=== PATIENT | male | born 1945 | race Caucasian/White ===

== ENCOUNTER 2017-09-02 13:46 | Inpatient (IN) | payer MEDICARE, OTHER ==
[2017-09-02] MEDS ORDERED: Sodium Chloride 0.9% 1,000 ML IV ONE ×2 (14:24→16:39)
--- NOTE | 2017-09-02 15:11 | EDM.PDOC ---
ED HPI GENERAL MEDICAL PROBLEM - General Chief Complaint: Syncope Stated Complaint: WEAK UNABLE TO EAT FOR WEEKS DIARRHEA Time Seen by Provider: 09/02/17 14:07 Source of Information: Reports: Patient, Family (Francesco kelley) History Limitations: Reports: Physical Impairment (Weak, hoarse voice) - History of Present Illness INITIAL COMMENTS - FREE TEXT/NARRATIVE: The patient states that he has had generalized weakness and anorexia for 1-2 weeks. He has had watery diarrhea for about one week, and one episode of emesis 3 or 4 days ago. He estimates a 15-20 pound weight loss over the past 1-2 weeks. The patient's daughter states that he has fallen at home twice, despite using a walker. He has had a cough, but it is chronic, and unchanged. No recent fever, but the patient has had chills. No recent chest pain, dyspnea, or palpitations. He denies dysuria or urinary frequency. No recent abdominal pain. The patient's daughter believes that the patient has had similar symptoms in the past due to "liver problems". The patient lives alone, but has a nurse visit him daily, Sunday through Sunday. The patient's PCP is Dr. Nayak at the [facility]. He last saw her about 2 months ago. - Related Data Allergies Allergy/AdvReac Type Severity Reaction Status Date / Time No Known Allergies Allergy Verified 11/11/14 06:50 Home Meds: Home Meds . [Unable to Verify Home Med List] 11/11/14 [History] Past Medical History Cardiovascular History: Reports: Blood Clots/VTE/DVT, Hypertension Musculoskeletal History: Reports: Osteoarthritis Oncologic (Cancer) History: Reports: Prostate - Past Surgical History HEENT Surgical History: Reports: Tonsillectomy GI Surgical History: Reports: Appendectomy Social & Family History - Tobacco Use Smoking Status *Q: Current Every Day Smoker Years of Tobacco use: 54 Packs/Tins Daily: 1 Packs/Tins Daily Comment: Down from 3 ppd - Alcohol Use Alcohol Use History: Yes Alcohol Use Frequency: Socially - Recreational Drug Use Recreational Drug Use: No - Living Situation & Occupation Living situation: Reports: , Alone Occupation: Retired ED ROS GENERAL - Review of Systems Review Of Systems: ROS reveals no pertinent complaints other than HPI. ED EXAM, GENERAL - Physical Exam Exam: See Below Exam Limited By: No Limitations General Appearance: Alert, No Apparent Distress, Thin, Other (Pale) Eye Exam: Bilateral Eye: Normal Inspection Ears: Normal External Exam, Hearing Grossly Normal Nose: Normal Inspection, No Blood Throat/Mouth: Normal Inspection, Normal Lips, No Airway Compromise, Other (Dry oral mucosa) Head: Atraumatic, Normocephalic Neck: Normal Inspection, Full Range of Motion. No: Lymphadenopathy (L), Lymphadenopathy (R) Respiratory/Chest: Lungs Clear, No Accessory Muscle Use, Other (Barrel-chested. Distant breath sounds.). No: Crackles, Rales, Wheezing Cardiovascular: Normal Peripheral Pulses, No Edema, No Gallop, No JVD, No Murmur , No Rub, Tachycardia (regular) Peripheral Pulses: 1+: Radial (L), Radial (R) GI/Abdominal: Normal Bowel Sounds, Soft, Non-Tender, No Organomegaly, No Distention, No Abnormal Bruit, No Mass (Male) Exam: Deferred Rectal (Males) Exam: Deferred Back Exam: Normal Inspection, Full Range of Motion, NT Extremities: Normal Inspection, Normal Range of Motion, No Pedal Edema, Normal Capillary Refill Neurological: Alert, Oriented, Normal Cognition, No Motor/Sensory Deficits Psychiatric: Normal Affect Skin Exam: Warm, Dry, Intact, No Rash EKG INTERPRETATION EKG Date: 09/02/17 Time: 14:42 Rhythm: NSR Rate (Beats/Min): 93 [place]: Normal P-Wave: Present (Frequent PVCs) QRS: Wide (Nonspecific intraventricular conduction delay) ST-T: Normal QT: Normal Comparison: NA - No Prior EKG Course - Vital Signs Last Recorded V/S: Last Vital Signs Temp 36.4 C 09/02/17 17:49 Pulse 76 09/02/17 17:49 Resp 18 09/02/17 17:49 BP 98/85 09/02/17 17:49 Pulse Ox 99 09/02/17 17:49 - Orders/Labs/Meds Orders: Active Orders 24 hr Category Date Time Status EKG Documentation Completion [RC] STAT Care 09/02/17 14:22 Active Insert Ramirez Catheter [Insert Urinary Catheter] [OM.PC] Care 09/02/17 17:00 Ordered Q24H Urinary Catheter Assessment [RC] ASDIRECTED Care 09/02/17 17:00 Active Chest 1V Frontal [CR] Stat Exams 09/02/17 14:22 Taken CULTURE BLOOD [BC] Stat Lab 09/02/17 14:45 Received CULTURE BLOOD [BC] Stat Lab 09/02/17 14:55 Received CULTURE URINE [RM] Stat Lab 09/02/17 15:20 Received INFLUENZA A+B AG SCREEN [RM] Stat Lab 09/02/17 15:20 Ordered UA W/MICROSCOPIC [URIN] Stat Lab 09/02/17 17:10 Ordered Norepinephrine [Levophed] 4 mg Med 09/02/17 17:15 Active Dextrose 5% in Water 246 ml IV TITRATE Blood Culture x2 Reflex Set [OM.PC] Stat Oth 09/02/17 14:22 Ordered Medication Orders Norepinephrine Bitartrate 4 mg (/ Dextrose/Water) 250 mls @ 37.5 mls/hr IV TITRATE YAZAN; Protocol Last Titration: 09/02/17 18:08 Dose: 2 mcg/min, 7.5 mls/hr Admin: 09/02/17 17:43 Dose: 10 mcg/min, 37.5 mls/hr Labs: Laboratory Tests 09/02/17 09/02/17 09/02/17 Range/Units 14:22 14:25 14:25 WBC 15.01 H (4.23-9.07) K/mm3 RBC 3.64 L (4.63-6.08) M/mm3 Hgb 10.6 L (13.7-17.5) gm/L Hct 32.2 L (40.1-51.0) % MCV 88.5 (79.0-92.2) fl MCH 29.1 (25.7-32.2) pg MCHC 32.9 (32.2-35.5) g/dl RDW Std Deviation 45.2 H (35.1-43.9) fL Plt Count 785 H (163-337) K/mm3 MPV 9.3 L (9.4-12.3) fl Neutrophils % (Manual) 81 H (40-60) % Band Neutrophils % 0 (0-10) % Lymphocytes % (Manual) 11 L (20-40) % Atypical Lymphs % 0 % Monocytes % (Manual) 8 (2-10) % Eosinophils % (Manual) 0 L (0.8-7.0) % Basophils % (Manual) 0 L (0.2-1.2) Platelet Estimate Marked inc Plt Morphology Comment See note Poikilocytosis 2+ moderate [place] Cells 2+ moderate Acanthocytes (Spur) 2+ moderate RBC Morph Comment Not Reportable PT 12.9 H (9.5-12.1) SECONDS INR 1.19 APTT 30 (24-31) SECONDS D-Dimer, Quantitative 2.22 H (0.19-0.50) mg/L Puncture Site Lt radial ABG pH 7.36 (7.35-7.45) ABG pCO2 20.3 L (35.0-45.0) mmHg ABG pO2 74.0 L (80.0-100.0) mmHg ABG HCO3 11.1 L (22.0-26.0) meq/L ABG O2 Saturation 92.2 L (96.0-97.0) % ABG Base Excess -12.7 L (-2-2.0) Johnny Test Positive O2 Delivery Device Room air FiO2 0.00 L (21.00-100.00) % Sodium (136-145) mEq/L Potassium (3.5-5.1) mEq/L Chloride (98-107) mEq/L Carbon Dioxide (21-32) mEq/L Anion Gap (5-15) BUN (7-18) mg/dL Creatinine (0.7-1.3) mg/dL Est Cr Clr Drug Dosing Estimated GFR (MDRD) (>60) mL/min BUN/Creatinine Ratio (14-18) Glucose (80-115) mg/dL Lactic Acid (0.4-2.0) mmol/L Calcium (8.5-10.1) mg/dL Magnesium (1.8-2.4) mg/dl Total Bilirubin (0.2-1.0) mg/dL AST (15-37) U/L ALT (16-63) U/L Alkaline Phosphatase (46-116) U/L Troponin I (0.00-0.056) ng/mL NT-Pro-B Natriuret Pep (0-125) pg/mL Total Protein (6.4-8.2) g/dl Albumin (3.4-5.0) g/dl Globulin gm/dL Albumin/Globulin Ratio (1-2) Urine Color (Yellow) Urine Appearance (Clear) Urine pH (5.0-8.0) Ur Specific Childs (1.005-1.030) Urine Protein (Negative) Urine Glucose (UA) (Negative) Urine Ketones (Negative) Urine Occult Blood (Negative) Urine Nitrite (Negative) Urine Bilirubin (Negative) Urine Urobilinogen (0.2-1.0) Ur Leukocyte Esterase (Negative) Urine RBC (0-5) /hpf Urine WBC (0-5) /hpf Ur Epithelial Cells (0-5) /hpf Urine Bacteria (FEW) /hpf Urine Mucus (FEW) /hpf 09/02/17 09/02/17 09/02/17 Range/Units 14:25 14:25 14:45 WBC (4.23-9.07) K/mm3 RBC (4.63-6.08) M/mm3 Hgb (13.7-17.5) gm/L Hct (40.1-51.0) % MCV (79.0-92.2) fl MCH (25.7-32.2) pg MCHC (32.2-35.5) g/dl RDW Std Deviation (35.1-43.9) fL Plt Count (163-337) K/mm3 MPV (9.4-12.3) fl Neutrophils % (Manual) (40-60) % Band Neutrophils % (0-10) % Lymphocytes % (Manual) (20-40) % Atypical Lymphs % % Monocytes % (Manual) (2-10) % Eosinophils % (Manual) (0.8-7.0) % Basophils % (Manual) (0.2-1.2) Platelet Estimate Plt Morphology Comment Poikilocytosis Ki Cells Acanthocytes (Spur) RBC Morph Comment PT (9.5-12.1) SECONDS INR APTT (24-31) SECONDS D-Dimer, Quantitative (0.19-0.50) mg/L Puncture Site ABG pH (7.35-7.45) ABG pCO2 (35.0-45.0) mmHg ABG pO2 (80.0-100.0) mmHg ABG HCO3 (22.0-26.0) meq/L ABG O2 Saturation (96.0-97.0) % ABG Base Excess (-2-2.0) Johnny Test O2 Delivery Device FiO2 (21.00-100.00) % Sodium 140 (136-145) mEq/L Potassium 4.9 (3.5-5.1) mEq/L Chloride 105 (98-107) mEq/L Carbon Dioxide 14 L (21-32) mEq/L Anion Gap 25.9 H (5-15) BUN 130 H (7-18) mg/dL Creatinine 5.0 H (0.7-1.3) mg/dL Est Cr Clr Drug Dosing TNP Estimated GFR (MDRD) 12 (>60) mL/min BUN/Creatinine Ratio 26.0 H (14-18) Glucose 113 (80-115) mg/dL Lactic Acid 1.2 (0.4-2.0) mmol/L Calcium 8.8 (8.5-10.1) mg/dL Magnesium 1.6 L (1.8-2.4) mg/dl Total Bilirubin 0.9 (0.2-1.0) mg/dL AST 14 L (15-37) U/L ALT 16 (16-63) U/L Alkaline Phosphatase 130 H (46-116) U/L Troponin I < 0.017 (0.00-0.056) ng/mL NT-Pro-B Natriuret Pep 7271 H (0-125) pg/mL Total Protein 6.6 (6.4-8.2) g/dl Albumin 2.2 L (3.4-5.0) g/dl Globulin 4.4 gm/dL Albumin/Globulin Ratio 0.5 L (1-2) Urine Color (Yellow) Urine Appearance (Clear) Urine pH (5.0-8.0) Ur Specific Childs (1.005-1.030) Urine Protein (Negative) Urine Glucose (UA) (Negative) Urine Ketones (Negative) Urine Occult Blood (Negative) Urine Nitrite (Negative) Urine Bilirubin (Negative) Urine Urobilinogen (0.2-1.0) Ur Leukocyte Esterase (Negative) Urine RBC (0-5) /hpf Urine WBC (0-5) /hpf Ur Epithelial Cells (0-5) /hpf Urine Bacteria (FEW) /hpf Urine Mucus (FEW) /hpf 09/02/17 Range/Units 17:10 WBC (4.23-9.07) K/mm3 RBC (4.63-6.08) M/mm3 Hgb (13.7-17.5) gm/L Hct (40.1-51.0) % MCV (79.0-92.2) fl MCH (25.7-32.2) pg MCHC (32.2-35.5) g/dl RDW Std Deviation (35.1-43.9) fL Plt Count (163-337) K/mm3 MPV (9.4-12.3) fl Neutrophils % (Manual) (40-60) % Band Neutrophils % (0-10) % Lymphocytes % (Manual) (20-40) % Atypical Lymphs % % Monocytes % (Manual) (2-10) % Eosinophils % (Manual) (0.8-7.0) % Basophils % (Manual) (0.2-1.2) Platelet Estimate Plt Morphology Comment Poikilocytosis [place] Cells Acanthocytes (Spur) RBC Morph Comment PT (9.5-12.1) SECONDS INR APTT (24-31) SECONDS D-Dimer, Quantitative (0.19-0.50) mg/L Puncture Site ABG pH (7.35-7.45) ABG pCO2 (35.0-45.0) mmHg ABG pO2 (80.0-100.0) mmHg ABG HCO3 (22.0-26.0) meq/L ABG O2 Saturation (96.0-97.0) % ABG Base Excess (-2-2.0) Johnny Test O2 Delivery Device FiO2 (21.00-100.00) % Sodium (136-145) mEq/L Potassium (3.5-5.1) mEq/L Chloride (98-107) mEq/L Carbon Dioxide (21-32) mEq/L Anion Gap (5-15) BUN (7-18) mg/dL Creatinine (0.7-1.3) mg/dL Est Cr Clr Drug Dosing Estimated GFR (MDRD) (>60) mL/min BUN/Creatinine Ratio (14-18) Glucose (80-115) mg/dL Lactic Acid (0.4-2.0) mmol/L Calcium (8.5-10.1) mg/dL Magnesium (1.8-2.4) mg/dl Total Bilirubin (0.2-1.0) mg/dL AST (15-37) U/L ALT (16-63) U/L Alkaline Phosphatase (46-116) U/L Troponin I (0.00-0.056) ng/mL NT-Pro-B Natriuret Pep (0-125) pg/mL Total Protein (6.4-8.2) g/dl Albumin (3.4-5.0) g/dl Globulin gm/dL Albumin/Globulin Ratio (1-2) Urine Color Yellow (Yellow) Urine Appearance Clear (Clear) Urine pH 5.5 (5.0-8.0) Ur Specific Childs 1.025 (1.005-1.030) Urine Protein 1+ H (Negative) Urine Glucose (UA) Negative (Negative) Urine Ketones Negative (Negative) Urine Occult Blood Negative (Negative) Urine Nitrite Negative (Negative) Urine Bilirubin 2+ H (Negative) Urine Urobilinogen 0.2 (0.2-1.0) Ur Leukocyte Esterase Trace H (Negative) Urine RBC 0-5 (0-5) /hpf Urine WBC 5-10 H (0-5) /hpf Ur Epithelial Cells 0-5 (0-5) /hpf Urine Bacteria Moderate H (FEW) /hpf Urine Mucus Few (FEW) /hpf Meds: Medications Generic Name Dose Route Start Last Admin Trade Name Freq PRN Reason Stop Dose Admin Norepinephrine Bitartrate 4 mg 250 mls @ 37.5 mls/hr 09/02/17 17:15 09/02/17 18:08 / Dextrose/Water IV 2 mcg/min TITRATE YAZAN 7.5 mls/hr Titration Protocol 10 MCG/MIN Discontinued Medications Generic Name Dose Route Start Last Admin Trade Name Freq PRN Reason Stop Dose Admin Sodium Chloride 1,000 mls @ 999 mls/hr 09/02/17 14:24 09/02/17 14:35 Normal Saline IV 09/02/17 15:24 999 mls/hr ONETIME ONE Administration Magnesium Sulfate 2 gm/ Premix 50 mls @ 50 mls/hr 09/02/17 16:06 09/02/17 16: 15 IV 09/02/17 17:05 50 mls/hr ONETIME STA Administration Sodium Chloride 1,000 mls @ 999 mls/hr 09/02/17 16:39 09/02/17 16:55 Normal Saline IV 09/02/17 17:39 999 mls/hr ONETIME ONE Administration Levofloxacin/Dextrose 250 mg/ 50 mls @ 50 mls/hr 09/02/17 17:10 09/02/17 17: 47 Premix IV 09/02/17 18:09 50 mls/hr ONETIME ONE Administration - Re-Assessments/Exams Free Text/Narrative Re-Assessment/Exam: 09/02/17 15:31 Portable chest radiograph reviewed. Cardiac silhouette is within normal limits. No pulmonary vascular congestion. No pleural effusions seen by this technique. No focal infiltrate. No pneumothorax. There is hyperinflation and bilateral diaphragmatic flattening, consistent with COPD. Formal read per the Radiologist pending. 09/02/17 16:06 The patient's magnesium level has returned modestly depressed at 1.6. I have ordered 1 g Mg-rider. The patient's D-dimer is significantly elevated at 2.22, and his BNP significantly elevated at 7271, however, the patient is in complete renal failure, with a BUN/Cr of 130/5.0. He has a bicarbonate of 14 and an anion gap of 25.9. He will require significant IV fluid. The patient's WBC count is elevated at 15.01, however, with 0% bandemia, and no infection found thus far. ABG and urinalysis are still pending. 09/02/17 17:07 The patient's ABG represents a compensated metabolic acidosis versus combined metabolic acidosis with respiratory alkalosis. As above, the patient is on his second liter of NS, nevertheless, the patient's BP has dropped to 51/34 with a HR of 97. I have ordered Levophed to start at 10 mcg/m, and a single dose of IV Levaquin 250 mg (dosed for the patient's renal failure), despite not having the urinalysis results. 09/02/17 17:53 The patient's urinalysis is consistent with a urinary tract infection, and that there is trace leukocyte esterase, 5-10 WBCs, and moderate bacteria. I have ordered a urine culture. 09/02/17 17:[address] Chung at 17:55. He accepts the patient for admission to the ICU. Departure - Departure Time of Disposition: 18:00 Disposition: Admitted As Inpatient 68 Condition: Serious Clinical Impression: Hypotension, Renal failure, High anion gap metabolic acidosis, Failure to thrive, Generalized weakness, Fall at home - Discharge Information - My Orders Last 24 Hours: My Active Orders 09/02/17 14:22 EKG Documentation Completion [RC] STAT Chest 1V Frontal [CR] Stat Blood Culture x2 Reflex Set [OM.PC] Stat 09/02/17 14:45 CULTURE BLOOD [BC] Stat 09/02/17 14:55 CULTURE BLOOD [BC] Stat 09/02/17 15:20 CULTURE URINE [RM] Stat INFLUENZA A+B AG SCREEN [RM] Stat 09/02/17 17:00 Insert Ramirez Catheter [Insert Urinary Catheter] [OM.PC] Q24H Urinary Catheter Assessment [RC] ASDIRECTED 09/02/17 17:10 UA W/MICROSCOPIC [URIN] Stat 09/02/17 17:15 Norepinephrine [Levophed] 4 mg Dextrose 5% in Water 246 ml IV TITRATE - Assessment/Plan Last 24 Hours: My Active Orders 09/02/17 14:22 EKG Documentation Completion [RC] STAT Chest 1V Frontal [CR] Stat Blood Culture x2 Reflex Set [OM.PC] Stat 09/02/17 14:45 CULTURE BLOOD [BC] Stat 09/02/17 14:55 CULTURE BLOOD [BC] Stat 09/02/17 15:20 CULTURE URINE [RM] Stat INFLUENZA A+B AG SCREEN [RM] Stat 09/02/17 17:00 Insert Ramirez Catheter [Insert Urinary Catheter] [OM.PC] Q24H Urinary Catheter Assessment [RC] ASDIRECTED 09/02/17 17:10 UA W/MICROSCOPIC [URIN] Stat 09/02/17 17:15 Norepinephrine [Levophed] 4 mg Dextrose 5% in Water 246 ml IV TITRATE
[2017-09-02] MEDS ORDERED: Magnesium Sulfate/Water 2 GM in Premix Bag 1 BAG IV STA (16:06)
[2017-09-02] MEDS ORDERED: Levofloxacin/Dextrose 5%-Water 250 MG in Premix Bag 1 BAG IV ONE (17:10)
[2017-09-02] MEDS: Norepinephrine 4 MG in Dextrose 5% in Water 246 ML IV SCH ×4 (17:43→23:50)
[2017-09-02] MEDS ORDERED: LORazepam 2 MG/ML SDV IVPUSH PRN (19:58)
[2017-09-02] MEDS ORDERED: hydrALAZINE 20 MG/ML SDV IVPUSH PRN (19:58)
[2017-09-02] MEDS ORDERED: Metoprolol Tartrate 5 MG/5 ML SDV IVPUSH PRN (19:58)
[2017-09-02] MEDS ORDERED: Polyethylene Glycol 3350 Powder 17 GM Packet PO PRN (20:06)
[2017-09-02] MEDS ORDERED: Docusate Sodium 100 MG Cap PO PRN (20:06)
[2017-09-02] MEDS ORDERED: LORazepam 2 MG/ML SDV IV PRN (20:06)
[2017-09-02] MEDS ORDERED: Albuterol/Ipratropium 3.0-0.5 MG/3 ML Neb Soln NEB PRN (20:06)
[2017-09-02] MEDS ORDERED: Acetaminophen 325 MG Tab PO PRN (20:06)
[2017-09-02] MEDS ORDERED: HYDROmorphone 0.5 MG/0.5 ML SYRINGE IVPUSH PRN (20:06)
[2017-09-02] MEDS ORDERED: Bisacodyl 5 MG Tab PO PRN (20:06)
[2017-09-02] MEDS ORDERED: Temazepam 7.5 MG Cap PO PRN (20:06)
[2017-09-02] MEDS ORDERED: Ondansetron 4 MG/2 ML SDV IV PRN (20:06)
[2017-09-02] MEDS ORDERED: Promethazine 6.25 MG in Sodium Chloride 0.9% 50 ML IV PRN (20:06)
[2017-09-02] MEDS ORDERED: Acetaminophen/HYDROcodone 325-5 MG Tab PO PRN (20:06)
--- NOTE | 2017-09-02 21:01 | PCM.HP ---
H&P History of Present Illness - General Date of Service: 09/02/17 Admit Problem/Dx: Admission Diagnosis/Problem Admission Diagnosis/Problem Hypotension Source of Information: Patient, Family, Old Records, Provider, RN Notes Reviewed History Limitations: Reports: Physical Impairment - History of Present Illness Initial Comments - Free Text/Narative: This is a 72 yo white male with a past medical hx/o HTN, Hx/o Blood Clot, OA, Prostate Disorder, and HF with Reduced EF of 32% 2015 who comes in for evaluation of essentially failure to thrive or self neglect. He reports primarily generalized weakness and anorexia. He recently had episode of watery diarrhea and emesis for a week now. As a result, he lost about 15-20 lbs. His daughter who is present at bedside, states he had fallen at least twice. He has unstable gait and ambulates with a walker. Patient lives alone and has some sort of a nurse care manager that visits him everyday. His initial workup in the emergency department shows a CBC remarkable for WBC of 15.01, RBC of 3.64, hemoglobin of 10.6, hematocrit of 32.2, RDW of 45.2, platelet count of 785, MPV of 9.3, neutrophils of 81% and lymphocytes of 11%. His coagulation studies show PT of 12.9, INR of 1.19, APTT of 30 and D d-dimer of 2.22. His ABG shows pH of 7.36, PCO2 of 20.3, PO2 of 74, HCO3 of 11.1, and O2 sat of 92.2% on room air. His chemistry is remarkable for CO2 14, anion gap of 25.9, BUN of 130, creatinine of 5.0, GFR of 12, lactic acid of 1.2, magnesium of 1.6, AST of 14, alkaline phosphatase of 130, proBNP of 7271 and albumin of 2.2. His initial troponin is less than 0.017. UA is pos but not strongly suggestive of urinary tract infection. His chest x-ray shows no acute abnormal finding. Patient is being admitted for profound hypotension, acute renal failure and failure to thrive. His code status is CPR only. - Related Data Allergies/Adverse Reactions: Allergies Allergy/AdvReac Type Severity Reaction Status Date / Time No Known Allergies Allergy Verified 11/11/14 06:50 Home Medications: Home Meds Carvedilol 3.125 mg PO BID 09/03/17 [History] Clopidogrel [Plavix] 75 mg PO DAILY 09/03/17 [History] Cyclobenzaprine [Flexeril] 10 mg PO BID PRN 09/03/17 [History] Docusate Sodium [Colace] 100 mg PO DAILY PRN 09/03/17 [History] Ferrous Sulfate [Iron] 325 mg PO DAILY 09/03/17 [History] Lisinopril 20 mg PO QAM 09/03/17 [History] Menthol/Methyl Salicylate [Icy Hot] TOP PRN 09/03/17 [History] Urea [Urea 20% Crm] TOP PRN 09/03/17 [History] Past Medical History HEENT History: Reports: Cataract Cardiovascular History: Reports: Blood Clots/VTE/DVT, Hypertension Respiratory History: Reports: COPD Musculoskeletal History: Reports: Osteoarthritis Hematologic History: Reports: Anemia, Iron Deficiency Oncologic (Cancer) History: Reports: Prostate - Past Surgical History HEENT Surgical History: Reports: Tonsillectomy GI Surgical History: Reports: Appendectomy Social & Family History - Tobacco Use Smoking Status *Q: Current Every Day Smoker Years of Tobacco use: 55 Packs/Tins Daily: 0.5 Used Tobacco, but Quit: No - Caffeine Use Caffeine Use: Reports: Coffee - Alcohol Use Days Per Week of Alcohol Use: 5 Number of Drinks Per Day: 4 Total Drinks Per Week: 20 Date of Last Drink: 08/29/17 - Recreational Drug Use Recreational Drug Use: No - Living Situation & Occupation Living situation: Reports: , Alone Occupation: Retired H&P Review of Systems - Review of Systems: Review Of Systems: See Below General: Reports: Weakness, Decreased Appetite, Weight Loss. Denies: Fever, Chills HEENT: Reports: No Symptoms Pulmonary: Reports: Cough. Denies: Shortness of Breath, Wheezing Cardiovascular: Reports: Syncope. Denies: Chest Pain, Dyspnea on Exertion, Blood Pressure Problem Gastrointestinal: Denies: Abdominal Pain, Constipation, Diarrhea, Nausea, Vomiting Genitourinary: Reports: No Symptoms Musculoskeletal: Reports: No Symptoms Skin: Denies: Cyanosis, Jaundice, Mottled, Pallor, Diaphoresis, Bruising, Rash Psychiatric: Denies: Confusion, Depression, Anxiety, Agitation, Hallucinations Neurological: Reports: Difficulty Walking, Weakness, Gait Disturbance. Denies: Confusion Hematologic/Lymphatic: Reports: No Symptoms Immunologic: Reports: No Symptoms Exam - Exam Exam: See Below - Vital Signs Vital Signs: Last Vital Signs Temp 36.9 C 09/02/17 19:54 Pulse 90 09/02/17 19:54 Resp 20 09/02/17 19:54 BP 85/32 L 09/02/17 19:54 Pulse Ox 92 L 09/02/17 19:54 Weight: 70.534 kg - Exam General: Alert, Oriented, Cooperative. No: Mild Distress HEENT: Conjunctiva Clear, EOMI, Hearing Intact, Nares Patent, Normal Nasal Septum, Posterior Pharynx Clear, Pupils Equal, Pupils Reactive, Other (without denturres). No: Mucosa Moist & [place] Neck: Supple, Trachea Midline, +2 Carotid Pulse wo Bruit, Full Range of Motion Lungs: Clear to Auscultation, Normal Respiratory Effort Cardiovascular: Irregular Rhythm GI/Abdominal Exam: Normal Bowel Sounds, Soft, Non-Tender, No Organomegaly, No Distention, No Abnormal Bruit (Male) Exam: Deferred Rectal (Males) Exam: Deferred Back Exam: Normal Inspection, Decreased Range of Motion Extremities: Normal Inspection, Normal Range of Motion, Non-Tender, Normal Capillary Refill Peripheral Pulses: 2+: Posterior Tibial (L), Posterior Tibial (R), Dorsalis Pedis (L), Dorsalis Pedis (R) Skin: Warm, Dry, Intact Neuro Extensive - Mental Status: Oriented x3, Normal Cognition, Memory Intact Neuro Extensive - Motor, Sensory, Reflexes: CN II-XII Intact, Abnormal Gait Psychiatric: Alert, Normal Affect, Normal Mood - Patient Data Lab Results Last 24 hrs: Laboratory Results - last 24 hr 09/02/17 09/02/17 09/02/17 Range/Units 14:22 14:25 14:25 WBC 15.01 H (4.23-9.07) K/mm3 RBC 3.64 L (4.63-6.08) M/mm3 Hgb 10.6 L (13.7-17.5) gm/L Hct 32.2 L (40.1-51.0) % MCV 88.5 (79.0-92.2) fl MCH 29.1 (25.7-32.2) pg MCHC 32.9 (32.2-35.5) g/dl RDW Std Deviation 45.2 H (35.1-43.9) fL Plt Count 785 H (163-337) K/mm3 MPV 9.3 L (9.4-12.3) fl Neutrophils % (Manual) 81 H (40-60) % Band Neutrophils % 0 (0-10) % Lymphocytes % (Manual) 11 L (20-40) % Atypical Lymphs % 0 % Monocytes % (Manual) 8 (2-10) % Eosinophils % (Manual) 0 L (0.8-7.0) % Basophils % (Manual) 0 L (0.2-1.2) Platelet Estimate Marked inc Plt Morphology Comment See note Poikilocytosis 2+ moderate [place] Cells 2+ moderate Acanthocytes (Spur) 2+ moderate RBC Morph Comment Not Reportable PT 12.9 H (9.5-12.1) SECONDS INR 1.19 APTT 30 (24-31) SECONDS D-Dimer, Quantitative 2.22 H (0.19-0.50) mg/L Puncture Site Lt radial ABG pH 7.36 (7.35-7.45) ABG pCO2 20.3 L (35.0-45.0) mmHg ABG pO2 74.0 L (80.0-100.0) mmHg ABG HCO3 11.1 L (22.0-26.0) meq/L ABG O2 Saturation 92.2 L (96.0-97.0) % ABG Base Excess -12.7 L (-2-2.0) Johnny Test Positive O2 Delivery Device Room air FiO2 0.00 L (21.00-100.00) % Sodium (136-145) mEq/L Potassium (3.5-5.1) mEq/L Chloride (98-107) mEq/L Carbon Dioxide (21-32) mEq/L Anion Gap (5-15) BUN (7-18) mg/dL Creatinine (0.7-1.3) mg/dL Est Cr Clr Drug Dosing Estimated GFR (MDRD) (>60) mL/min BUN/Creatinine Ratio (14-18) Glucose (80-115) mg/dL Lactic Acid (0.4-2.0) mmol/L Calcium (8.5-10.1) mg/dL Magnesium (1.8-2.4) mg/dl Total Bilirubin (0.2-1.0) mg/dL AST (15-37) U/L ALT (16-63) U/L Alkaline Phosphatase (46-116) U/L Troponin I (0.00-0.056) ng/mL NT-Pro-B Natriuret Pep (0-125) pg/mL Total Protein (6.4-8.2) g/dl Albumin (3.4-5.0) g/dl Globulin gm/dL Albumin/Globulin Ratio (1-2) Urine Color (Yellow) Urine Appearance (Clear) Urine pH (5.0-8.0) Ur Specific [place] (1.005-1.030) Urine Protein (Negative) Urine Glucose (UA) (Negative) Urine Ketones (Negative) Urine Occult Blood (Negative) Urine Nitrite (Negative) Urine Bilirubin (Negative) Urine Urobilinogen (0.2-1.0) Ur Leukocyte Esterase (Negative) Urine RBC (0-5) /hpf Urine WBC (0-5) /hpf Ur Epithelial Cells (0-5) /hpf Urine Bacteria (FEW) /hpf Urine Mucus (FEW) /hpf 09/02/17 09/02/17 09/02/17 Range/Units 14:25 14:25 14:45 WBC (4.23-9.07) K/mm3 RBC (4.63-6.08) M/mm3 Hgb (13.7-17.5) gm/L Hct (40.1-51.0) % MCV (79.0-92.2) fl MCH (25.7-32.2) pg MCHC (32.2-35.5) g/dl RDW Std Deviation (35.1-43.9) fL Plt Count (163-337) K/mm3 MPV (9.4-12.3) fl Neutrophils % (Manual) (40-60) % Band Neutrophils % (0-10) % Lymphocytes % (Manual) (20-40) % Atypical Lymphs % % Monocytes % (Manual) (2-10) % Eosinophils % (Manual) (0.8-7.0) % Basophils % (Manual) (0.2-1.2) Platelet Estimate Plt Morphology Comment Poikilocytosis Ki Cells Acanthocytes (Spur) RBC Morph Comment PT (9.5-12.1) SECONDS INR APTT (24-31) SECONDS D-Dimer, Quantitative (0.19-0.50) mg/L Puncture Site ABG pH (7.35-7.45) ABG pCO2 (35.0-45.0) mmHg ABG pO2 (80.0-100.0) mmHg ABG HCO3 (22.0-26.0) meq/L ABG O2 Saturation (96.0-97.0) % ABG Base Excess (-2-2.0) Johnny Test O2 Delivery Device FiO2 (21.00-100.00) % Sodium 140 (136-145) mEq/L Potassium 4.9 (3.5-5.1) mEq/L Chloride 105 (98-107) mEq/L Carbon Dioxide 14 L (21-32) mEq/L Anion Gap 25.9 H (5-15) BUN 130 H (7-18) mg/dL Creatinine 5.0 H (0.7-1.3) mg/dL Est Cr Clr Drug Dosing TNP Estimated GFR (MDRD) 12 (>60) mL/min BUN/Creatinine Ratio 26.0 H (14-18) Glucose 113 (80-115) mg/dL Lactic Acid 1.2 (0.4-2.0) mmol/L Calcium 8.8 (8.5-10.1) mg/dL Magnesium 1.6 L (1.8-2.4) mg/dl Total Bilirubin 0.9 (0.2-1.0) mg/dL AST 14 L (15-37) U/L ALT 16 (16-63) U/L Alkaline Phosphatase 130 H (46-116) U/L Troponin I < 0.017 (0.00-0.056) ng/mL NT-Pro-B Natriuret Pep 7271 H (0-125) pg/mL Total Protein 6.6 (6.4-8.2) g/dl Albumin 2.2 L (3.4-5.0) g/dl Globulin 4.4 gm/dL Albumin/Globulin Ratio 0.5 L (1-2) Urine Color (Yellow) Urine Appearance (Clear) Urine pH (5.0-8.0) Ur Specific [place] (1.005-1.030) Urine Protein (Negative) Urine Glucose (UA) (Negative) Urine Ketones (Negative) Urine Occult Blood (Negative) Urine Nitrite (Negative) Urine Bilirubin (Negative) Urine Urobilinogen (0.2-1.0) Ur Leukocyte Esterase (Negative) Urine RBC (0-5) /hpf Urine WBC (0-5) /hpf Ur Epithelial Cells (0-5) /hpf Urine Bacteria (FEW) /hpf Urine Mucus (FEW) /hpf 09/02/17 Range/Units 17:10 WBC (4.23-9.07) K/mm3 RBC (4.63-6.08) M/mm3 Hgb (13.7-17.5) gm/L Hct (40.1-51.0) % MCV (79.0-92.2) fl MCH (25.7-32.2) pg MCHC (32.2-35.5) g/dl RDW Std Deviation (35.1-43.9) fL Plt Count (163-337) K/mm3 MPV (9.4-12.3) fl Neutrophils % (Manual) (40-60) % Band Neutrophils % (0-10) % Lymphocytes % (Manual) (20-40) % Atypical Lymphs % % Monocytes % (Manual) (2-10) % Eosinophils % (Manual) (0.8-7.0) % Basophils % (Manual) (0.2-1.2) Platelet Estimate Plt Morphology Comment Poikilocytosis [place] Cells Acanthocytes (Spur) RBC Morph Comment PT (9.5-12.1) SECONDS INR APTT (24-31) SECONDS D-Dimer, Quantitative (0.19-0.50) mg/L Puncture Site ABG pH (7.35-7.45) ABG pCO2 (35.0-45.0) mmHg ABG pO2 (80.0-100.0) mmHg ABG HCO3 (22.0-26.0) meq/L ABG O2 Saturation (96.0-97.0) % ABG Base Excess (-2-2.0) Johnny Test O2 Delivery Device FiO2 (21.00-100.00) % Sodium (136-145) mEq/L Potassium (3.5-5.1) mEq/L Chloride (98-107) mEq/L Carbon Dioxide (21-32) mEq/L Anion Gap (5-15) BUN (7-18) mg/dL Creatinine (0.7-1.3) mg/dL Est Cr Clr Drug Dosing Estimated GFR (MDRD) (>60) mL/min BUN/Creatinine Ratio (14-18) Glucose (80-115) mg/dL Lactic Acid (0.4-2.0) mmol/L Calcium (8.5-10.1) mg/dL Magnesium (1.8-2.4) mg/dl Total Bilirubin (0.2-1.0) mg/dL AST (15-37) U/L ALT (16-63) U/L Alkaline Phosphatase (46-116) U/L Troponin I (0.00-0.056) ng/mL NT-Pro-B Natriuret Pep (0-125) pg/mL Total Protein (6.4-8.2) g/dl Albumin (3.4-5.0) g/dl Globulin gm/dL Albumin/Globulin Ratio (1-2) Urine Color Yellow (Yellow) Urine Appearance Clear (Clear) Urine pH 5.5 (5.0-8.0) Ur Specific [place] 1.025 (1.005-1.030) Urine Protein 1+ H (Negative) Urine Glucose (UA) Negative (Negative) Urine Ketones Negative (Negative) Urine Occult Blood Negative (Negative) Urine Nitrite Negative (Negative) Urine Bilirubin 2+ H (Negative) Urine Urobilinogen 0.2 (0.2-1.0) Ur Leukocyte Esterase Trace H (Negative) Urine RBC 0-5 (0-5) /hpf Urine WBC 5-10 H (0-5) /hpf Ur Epithelial Cells 0-5 (0-5) /hpf Urine Bacteria Moderate H (FEW) /hpf Urine Mucus Few (FEW) /hpf Result Diagrams: 09/03/17 05:48 09/03/17 05:48 Syed Results Last 24 hrs: Microbiology 09/02/17 15:20 Influenza Type A Antigen Screen - Final Nasopharyngeal Swab NEGATIVE INFLUENZA A VIRUS AG Influenza Type B Antigen Screen - Final NEGATIVE INFLUENZA B VIRUS AG Problem List Initiated/Reviewed/Updated: Yes Orders Last 24hrs: Active Orders 24 hr Category Date Time Status Patient Status [ADT] Routine ADT 09/02/17 19:44 Active CIWAA Assessment [RC] Q4HR Care 09/02/17 20:50 Active Cardiac Monitoring [RC] CONTINUOUS Care 09/02/17 20:07 Active Height and Weight [RC] 04 Care 09/02/17 20:06 Active Insert Ramirez Catheter [Insert Urinary Catheter] [OM.PC] Care 09/02/17 17:00 Ordered Q24H Intake and Output [RC] 04,16 Care 09/02/17 20:07 Active Oxygen Therapy [RC] PRN Care 09/02/17 20:06 Active RT Aerosol Therapy [RC] ASDIRECTED Care 09/02/17 20:16 Active Up With Assistance [RC] ASDIRECTED Care 09/02/17 20:06 Active Up ad Vanna [RC] ASDIRECTED Care 09/02/17 20:06 Active VTE/DVT Education [RC] 09,21 Care 09/02/17 20:06 Active Vital Signs [RC] Q1HR Care 09/02/17 20:06 Active Consult to Case Management [CONS] Routine Cons 09/02/17 20:16 Active Consult to Merchandise Associate [CONS] Routine Cons 09/02/17 20:16 Active Consult to [place] Machine Tender [CONS] Routine Cons 09/02/17 20:16 Active Consult to Spiritual Care [CONS] Routine Cons 09/02/17 20:16 Active OT Evaluation and Treatment [CONS] Routine Cons 09/02/17 20:16 Active PT Evaluation and Treatment [CONS] Routine Cons 09/02/17 20:16 Active 2 Gram Sodium Diet [DIET] Diet 09/02/17 Dinner Active Fluid Restriction [DIET] Diet 09/02/17 Dinner Active Renal Non-Dialysis Diet [DIET] Diet 09/02/17 Dinner Active Chest 1V Frontal [CR] Stat Exams 09/02/17 14:22 Taken Echo 2D wo Cont [US] Routine Exams 09/03/17 07:00 Ordered Retroperitoneal Ltd [US] Routine Exams 09/03/17 07:00 Ordered BASIC METABOLIC PANEL,BMP [CHEM] AM Lab 09/03/17 05:11 Ordered BASIC METABOLIC PANEL,BMP [CHEM] AM Lab 09/04/17 05:11 Ordered BASIC METABOLIC PANEL,BMP [CHEM] AM Lab 09/05/17 05:11 Ordered BASIC METABOLIC PANEL,BMP [CHEM] AM Lab 09/06/17 05:11 Ordered BASIC METABOLIC PANEL,BMP [CHEM] AM Lab 09/07/17 05:11 Ordered BMP [BASIC METABOLIC PANEL,BMP] [CHEM] Routine Lab 09/02/17 22:00 Ordered C-REACTIVE PROTEIN [CHEM] AM Lab 09/03/17 05:11 Ordered C-REACTIVE PROTEIN [CHEM] AM Lab 09/04/17 05:11 Ordered C-REACTIVE PROTEIN [CHEM] AM Lab 09/05/17 05:11 Ordered C-REACTIVE PROTEIN [CHEM] AM Lab 09/06/17 05:11 Ordered C-REACTIVE PROTEIN [CHEM] AM Lab 09/07/17 05:11 Ordered CBC WITH AUTO DIFF [HEME] AM Lab 09/03/17 05:11 Ordered CBC WITH AUTO DIFF [HEME] AM Lab 09/04/17 05:11 Ordered CBC WITH AUTO DIFF [HEME] AM Lab 09/05/17 05:11 Ordered CBC WITH AUTO DIFF [HEME] AM Lab 09/06/17 05:11 Ordered CBC WITH AUTO DIFF [HEME] AM Lab 09/07/17 05:11 Ordered CULTURE BLOOD [BC] Stat Lab 09/02/17 14:45 Received CULTURE BLOOD [BC] Stat Lab 09/02/17 14:55 Received CULTURE URINE [RM] Stat Lab 09/02/17 15:20 Received EOSINOPHILS, URINE Stat Lab 09/02/17 20:41 Ordered INFLUENZA A+B AG SCREEN [RM] Stat Lab 09/02/17 15:20 Ordered MAGNESIUM [CHEM] AM Lab 09/03/17 05:11 Ordered MAGNESIUM [CHEM] AM Lab 09/04/17 05:11 Ordered MAGNESIUM [CHEM] AM Lab 09/05/17 05:11 Ordered MAGNESIUM [CHEM] AM Lab 09/06/17 05:11 Ordered MAGNESIUM [CHEM] AM Lab 09/07/17 05:11 Ordered OSMOLALITY,SERUM [CHEM] Stat Lab 09/02/17 20:40 Ordered OSMOLALITY,URINE [URCHEM] Stat Lab 09/02/17 17:10 Received SODIUM,NA [CHEM] Stat Lab 09/02/17 20:40 Ordered UA W/MICROSCOPIC [URIN] Stat Lab 09/02/17 17:10 Ordered URIC ACID, URINE Stat Lab 09/02/17 20:41 Ordered Acetaminophen [Tylenol] Med 09/02/17 20:06 Active 650 mg PO Q4H PRN Acetaminophen/HYDROcodone [[place] 325-5 MG] Med 09/02/17 20:06 Active 1 tab PO Q4H PRN Albuterol/Ipratropium [DuoNeb 3.0-0.5 MG/3 ML] Med 05/20/18 20:06 Active 3 ml NEB Q4H PRN Bisacodyl [Dulcolax] Med 09/02/17 20:06 Active 5 mg PO DAILY PRN Docusate Sodium [Colace] Med 09/02/17 20:06 Active 100 mg PO BID PRN Docusate Sodium/Sennosides [Senna Plus] Med 09/02/17 20:06 Active 1 tab PO BID PRN HYDROmorphone [Dilaudid] Med 09/02/17 20:06 Active 0.25 mg IVPUSH Q2H PRN LORazepam [Ativan] Med 09/02/17 20:06 Active 0.25 mg IV Q6H PRN LORazepam [Ativan] Med 09/02/17 19:58 Active 2 mg IVPUSH Q4H PRN Magnesium Rep Pharmacy to Dose [Pharmacy to Dose - Med 09/02/17 20:00 Pending Magnesium Replacement] 1 dose .XX ASDIRECTED Metoprolol Tartrate [Lopressor] Med 09/02/17 19:58 Active 5 mg IVPUSH Q4H PRN Norepinephrine [Levophed] 4 mg Med 09/02/17 17:15 Active Dextrose 5% in Water 246 ml IV TITRATE Ondansetron [Zofran] Med 09/02/17 20:06 Active 4 mg IV Q6H PRN Polyethylene Glycol 3350 [MiraLAX] Med 09/02/17 20:06 Active 17 gm PO DAILY PRN Potassium Rep Pharmacy to Dose [Pharmacy to Dose - Med 09/02/17 20:00 Pending Potassium Replacement] 1 dose .XX ASDIRECTED Promethazine [Phenergan] 6.25 mg Med 09/02/17 20:06 Active Sodium Chloride 0.9% [Normal Saline] 50 ml IV Q6H Saccharomyces Boulardii [Florastor] Med 09/03/17 09:00 Active 250 mg PO DAILY Temazepam [Restoril] Med 09/02/17 20:06 Active 7.5 mg PO BEDTIME PRN cefTRIAXone [Rocephin] 1 gm Med 09/03/17 09:00 Active Sodium Chloride 0.9% [Normal Saline] 100 ml IV Q24H hydrALAZINE [Apresoline] Med 09/02/17 19:58 Active 10 mg IVPUSH Q4H PRN Blood Culture x2 Reflex Set [OM.PC] Stat Ot 09/02/17 14:22 Ordered Sequential Compression Device [OM.PC] Per Unit Routine Oth 09/02/17 20:07 Ordered Medication Orders Acetaminophen (Tylenol) 650 mg PO Q4H PRN PRN Reason: Pain (Mild 1-3)/fever Hydrocodone Bitart/Acetaminophen ([place] 325-5 Mg) 1 tab PO Q4H PRN PRN Reason: Pain (moderate 4-6) Albuterol/Ipratropium (Duoneb 3.0-0.5 Mg/3 Ml) 3 ml NEB Q4H PRN PRN Reason: Shortness Of Breath/wheezing Bisacodyl (Dulcolax) 5 mg PO DAILY PRN PRN Reason: Constipation Docusate Sodium (Colace) 100 mg PO BID PRN PRN Reason: Constipation Hydralazine HCl (Apresoline) 10 mg IVPUSH Q4H PRN PRN Reason: Hypertension Hydromorphone HCl (Dilaudid) 0.25 mg IVPUSH Q2H PRN PRN Reason: Pain (severe 7-10) Norepinephrine Bitartrate 4 mg (/ Dextrose/Water) 250 mls @ 37.5 mls/hr IV TITRATE YAZAN; Protocol Last Titration: 09/02/17 20:08 Dose: 10 mcg/min, 37.5 mls/hr Titration: 09/02/17 20:02 Dose: 5 mcg/min, 18.75 mls/hr Titration: 09/02/17 18:08 Dose: 2 mcg/min, 7.5 mls/hr Admin: 09/02/17 17:43 Dose: 10 mcg/min, 37.5 mls/hr Promethazine HCl 6.25 mg/ (Sodium Chloride) 50.25 mls @ 100 mls/hr IV Q6H PRN PRN Reason: Nausea/Vomiting Ceftriaxone Sodium 1 gm/ (Sodium Chloride) 100 mls @ 200 mls/hr IV Q24H YAZAN Lorazepam (Ativan) 2 mg IVPUSH Q4H PRN PRN Reason: Seizures Lorazepam (Ativan) 0.25 mg IV Q6H PRN PRN Reason: Anxiety Magnesium Sulfate (Pharmacy To Dose - Magnesium Replacement) 1 dose .XX ASDIRECTED YAZAN Metoprolol Tartrate (Lopressor) 5 mg IVPUSH Q4H PRN PRN Reason: Tachycardia Ondansetron HCl (Zofran) 4 mg IV Q6H PRN PRN Reason: Nausea/Vomiting Polyethylene Glycol (Miralax) 17 gm PO DAILY PRN PRN Reason: Constipation Potassium Chloride (Pharmacy To Dose - Potassium Replacement) 1 dose .XX ASDIRECTED YAZAN Saccharomyces Boulardii (Florastor) 250 mg PO DAILY YAZAN Senna/Docusate Sodium (Senna Plus) 1 tab PO BID PRN PRN Reason: Constipation Temazepam (Restoril) 7.5 mg PO BEDTIME PRN PRN Reason: Sleep Assessment/Plan Comment:: Assessment/Plan: Acute: Renal Failure - Acute vs Chronic - BUN 130/Cr 5; GFR is 5.0 (no baseline for comparison) - Renal U/S and Renal Studies - Urine studies - IV hydration; received 2L of NS in ED - Avoid nephrotoxic agents Anemia - Hgb 10.6 - Likely 2/2 CKD - Monitor Profound Hypotension - 2/2 poor intake and GI loss - Received 2L of NS in ED; cautious on volume overload due to low EF - He is now on Levophed drip; titrate to keep MAP at or > 65 mmHg - Monitor Is/Os and urine Output Hypomagnesemia - Mg 1.6 - 2/2 ARF vs inadequate intake - Replete and monitor Elevated ProBNP - 7271 - He carries a hx/o HF with Reduced EF of 32% in 2014 - Monitor fluid volume - 2D echo in AM - 2.5 L daily fluid restrictions Generalized Weakness - Multi-factorial but primarily self neglect - PT/OT for deconditioning - Vit D and Thyroid panel in AM - Dietary consult to improve nutritional status Failure To Thrive/Self Neglect - He lives alone - Weight loss of 15-20 lbs weight loss over the past 1-2 weeks High Risk Fall - Unsteady gait; uses a walker to ambulate - He had fallen twice at home Possible Cystitis - UA pos for UTI - IV Rocephin 1 gram daily Chronic: HTN OA Prostate Disorder Hx/o Blood Clot Nicotine Dependence ETOH Use/Dependence Plan: Admit to ICU Routine AM Labs Resume Home Medication Adequate IV Hydration Monitor electrolytes PT/OT consult SW/CM for d/c planning Code status: CPR only
[2017-09-03] MEDS ORDERED: Sodium Chloride 0.9% 250 ML IV ONE (00:54)
[2017-09-03] MEDS: Sodium Chloride 0.9% 1,000 ML IV SCH ×3 (01:22→18:57)
[2017-09-03] MEDS: Norepinephrine 4 MG in Dextrose 5% in Water 246 ML IV SCH ×10 (03:17→23:40)
--- NOTE | 2017-09-03 07:09 | PCM.PN ---
- General Info Date of Service: 09/03/17 Admission Dx/Problem (Free Text): Admission Diagnosis/Problem Admission Diagnosis/Problem Hypotension Subjective Update: Follow Up Functional Status: Reports: Pain Controlled, Tolerating Diet, Urinating. Denies : New Symptoms - Review of Systems General: Denies: Fever, Weakness, Fatigue, Malaise, Chills HEENT: Reports: No Symptoms Pulmonary: Denies: Shortness of Breath, Pleuritic Chest Pain, Cough Cardiovascular: Denies: Chest Pain, Palpitations, Dyspnea on Exertion, Lightheadedness Gastrointestinal: Denies: Abdominal Pain, Nausea, Vomiting Genitourinary: Reports: No Symptoms Musculoskeletal: Reports: No Symptoms Skin: Denies: Cyanosis, Mottled, Pallor, Diaphoresis Neurological: Reports: Difficulty Walking, Weakness, Gait Disturbance. Denies: Confusion Psychiatric: Denies: Depression, Anxiety, Agitation, Hallucinations Systems Review Comment:: No significant ovrnight or acute issues. He slept allright. He has no complaints. His is still on vasopressor. WBC is down to 11.28 and he is afebrile. His renal function is slowly improving. - Patient Data Vitals - Most Recent: Last Vital Signs Temp 37.2 C 09/03/17 04:00 Pulse 85 09/03/17 06:00 Resp 18 09/03/17 04:00 BP 96/57 L 09/03/17 06:00 Pulse Ox 93 L 09/03/17 04:00 Weight - Most Recent: 71.169 kg I&O - Last 24 Hours: Intake & Output 09/02/17 09/03/17 09/03/17 22:59 06:59 14:59 Intake Total 1279 Output Total 580 Balance 699 Imaging Impressions - Last 24 Hours: 2-D echo 09/03/2017: LV ejection fraction 30-35%. Moderately decreased left ventricular systolic function. Grade 1 pattern of LV diastolic filling. Renal ultrasound 09/03/2017 report reads elevated resistivity indices within both kidneys compatible with nonspecific medical renal disease. Small post void residual within the bladder. Lab Results Last 24 Hours: Laboratory Results - last 24 hr 09/02/17 09/02/17 09/02/17 Range/Units 14:22 14:25 14:25 WBC 15.01 H (4.23-9.07) K/mm3 RBC 3.64 L (4.63-6.08) M/mm3 Hgb 10.6 L (13.7-17.5) gm/L Hct 32.2 L (40.1-51.0) % MCV 88.5 (79.0-92.2) fl MCH 29.1 (25.7-32.2) pg MCHC 32.9 (32.2-35.5) g/dl RDW Std Deviation 45.2 H (35.1-43.9) fL Plt Count 785 H (163-337) K/mm3 MPV 9.3 L (9.4-12.3) fl Neut % (Auto) (34.0-67.9) % Lymph % (Auto) (21.8-53.1) % [place] % (Auto) (5.3-12.2) % Eos % (Auto) (0.8-7.0) Baso % (Auto) (0.1-1.2) % Neut # (Auto) (1.78-5.38) K/mm3 Lymph # (Auto) (1.32-3.57) K/mm3 [place] # (Auto) (0.30-0.82) K/mm3 Eos # (Auto) (0.04-0.54) K/mm3 Baso # (Auto) (0.01-0.08) K/mm3 Neutrophils % (Manual) 81 H (40-60) % Band Neutrophils % 0 (0-10) % Lymphocytes % (Manual) 11 L (20-40) % Atypical Lymphs % 0 % Monocytes % (Manual) 8 (2-10) % Eosinophils % (Manual) 0 L (0.8-7.0) % Basophils % (Manual) 0 L (0.2-1.2) Platelet Estimate Marked inc Plt Morphology Comment See note Poikilocytosis 2+ moderate Ki Cells 2+ moderate Acanthocytes (Spur) 2+ moderate RBC Morph Comment Not Reportable PT 12.9 H (9.5-12.1) SECONDS INR 1.19 APTT 30 (24-31) SECONDS D-Dimer, Quantitative 2.22 H (0.19-0.50) mg/L Puncture Site Lt radial ABG pH 7.36 (7.35-7.45) ABG pCO2 20.3 L (35.0-45.0) mmHg ABG pO2 74.0 L (80.0-100.0) mmHg ABG HCO3 11.1 L (22.0-26.0) meq/L ABG O2 Saturation 92.2 L (96.0-97.0) % ABG Base Excess -12.7 L (-2-2.0) Johnny Test Positive O2 Delivery Device Room air FiO2 0.00 L (21.00-100.00) % Sodium (136-145) mEq/L Potassium (3.5-5.1) mEq/L Chloride (98-107) mEq/L Carbon Dioxide (21-32) mEq/L Anion Gap (5-15) BUN (7-18) mg/dL Creatinine (0.7-1.3) mg/dL Est Cr Clr Drug Dosing Estimated GFR (MDRD) (>60) mL/min BUN/Creatinine Ratio (14-18) Glucose (80-115) mg/dL Serum Osmolality (280-300) mosm/kg Lactic Acid (0.4-2.0) mmol/L Calcium (8.5-10.1) mg/dL Magnesium (1.8-2.4) mg/dl Total Bilirubin (0.2-1.0) mg/dL AST (15-37) U/L ALT (16-63) U/L Alkaline Phosphatase (46-116) U/L Troponin I (0.00-0.056) ng/mL NT-Pro-B Natriuret Pep (0-125) pg/mL Total Protein (6.4-8.2) g/dl Albumin (3.4-5.0) g/dl Globulin gm/dL Albumin/Globulin Ratio (1-2) Free T4 (0.76-1.46) ng/dL TSH 3rd Generation (0.358-3.74) uIU/mL Urine Color (Yellow) Urine Appearance (Clear) Urine pH (5.0-8.0) Ur Specific [place] (1.005-1.030) Urine Protein (Negative) Urine Glucose (UA) (Negative) Urine Ketones (Negative) Urine Occult Blood (Negative) Urine Nitrite (Negative) Urine Bilirubin (Negative) Urine Urobilinogen (0.2-1.0) Ur Leukocyte Esterase (Negative) Urine RBC (0-5) /hpf Urine WBC (0-5) /hpf Ur Epithelial Cells (0-5) /hpf Urine Bacteria (FEW) /hpf Urine Mucus (FEW) /hpf Urine Osmolality (400-1100) mosm/kg Ur Random Creatinine (30.0-125.0) mg/dL 09/02/17 09/02/17 09/02/17 Range/Units 14:25 14:25 14:45 WBC (4.23-9.07) K/mm3 RBC (4.63-6.08) M/mm3 Hgb (13.7-17.5) gm/L Hct (40.1-51.0) % MCV (79.0-92.2) fl MCH (25.7-32.2) pg MCHC (32.2-35.5) g/dl RDW Std Deviation (35.1-43.9) fL Plt Count (163-337) K/mm3 MPV (9.4-12.3) fl Neut % (Auto) (34.0-67.9) % Lymph % (Auto) (21.8-53.1) % [place] % (Auto) (5.3-12.2) % Eos % (Auto) (0.8-7.0) Baso % (Auto) (0.1-1.2) % Neut # (Auto) (1.78-5.38) K/mm3 Lymph # (Auto) (1.32-3.57) K/mm3 [place] # (Auto) (0.30-0.82) K/mm3 Eos # (Auto) (0.04-0.54) K/mm3 Baso # (Auto) (0.01-0.08) K/mm3 Neutrophils % (Manual) (40-60) % Band Neutrophils % (0-10) % Lymphocytes % (Manual) (20-40) % Atypical Lymphs % % Monocytes % (Manual) (2-10) % Eosinophils % (Manual) (0.8-7.0) % Basophils % (Manual) (0.2-1.2) Platelet Estimate Plt Morphology Comment Poikilocytosis Ki Cells Acanthocytes (Spur) RBC Morph Comment PT (9.5-12.1) SECONDS INR APTT (24-31) SECONDS D-Dimer, Quantitative (0.19-0.50) mg/L Puncture Site ABG pH (7.35-7.45) ABG pCO2 (35.0-45.0) mmHg ABG pO2 (80.0-100.0) mmHg ABG HCO3 (22.0-26.0) meq/L ABG O2 Saturation (96.0-97.0) % ABG Base Excess (-2-2.0) Johnny Test O2 Delivery Device FiO2 (21.00-100.00) % Sodium 140 (136-145) mEq/L Potassium 4.9 (3.5-5.1) mEq/L Chloride 105 (98-107) mEq/L Carbon Dioxide 14 L (21-32) mEq/L Anion Gap 25.9 H (5-15) BUN 130 H (7-18) mg/dL Creatinine 5.0 H (0.7-1.3) mg/dL Est Cr Clr Drug Dosing TNP Estimated GFR (MDRD) 12 (>60) mL/min BUN/Creatinine Ratio 26.0 H (14-18) Glucose 113 (80-115) mg/dL Serum Osmolality (280-300) mosm/kg Lactic Acid 1.2 (0.4-2.0) mmol/L Calcium 8.8 (8.5-10.1) mg/dL Magnesium 1.6 L (1.8-2.4) mg/dl Total Bilirubin 0.9 (0.2-1.0) mg/dL AST 14 L (15-37) U/L ALT 16 (16-63) U/L Alkaline Phosphatase 130 H (46-116) U/L Troponin I < 0.017 (0.00-0.056) ng/mL NT-Pro-B Natriuret Pep 7271 H (0-125) pg/mL Total Protein 6.6 (6.4-8.2) g/dl Albumin 2.2 L (3.4-5.0) g/dl Globulin 4.4 gm/dL Albumin/Globulin Ratio 0.5 L (1-2) Free T4 (0.76-1.46) ng/dL TSH 3rd Generation (0.358-3.74) uIU/mL Urine Color (Yellow) Urine Appearance (Clear) Urine pH (5.0-8.0) Ur Specific [place] (1.005-1.030) Urine Protein (Negative) Urine Glucose (UA) (Negative) Urine Ketones (Negative) Urine Occult Blood (Negative) Urine Nitrite (Negative) Urine Bilirubin (Negative) Urine Urobilinogen (0.2-1.0) Ur Leukocyte Esterase (Negative) Urine RBC (0-5) /hpf Urine WBC (0-5) /hpf Ur Epithelial Cells (0-5) /hpf Urine Bacteria (FEW) /hpf Urine Mucus (FEW) /hpf Urine Osmolality (400-1100) mosm/kg Ur Random Creatinine (30.0-125.0) mg/dL 09/02/17 09/02/17 09/02/17 Range/Units 17:10 17:10 17:10 WBC (4.23-9.07) K/mm3 RBC (4.63-6.08) M/mm3 Hgb (13.7-17.5) gm/L Hct (40.1-51.0) % MCV (79.0-92.2) fl MCH (25.7-32.2) pg MCHC (32.2-35.5) g/dl RDW Std Deviation (35.1-43.9) fL Plt Count (163-337) K/mm3 MPV (9.4-12.3) fl Neut % (Auto) (34.0-67.9) % Lymph % (Auto) (21.8-53.1) % [place] % (Auto) (5.3-12.2) % Eos % (Auto) (0.8-7.0) Baso % (Auto) (0.1-1.2) % Neut # (Auto) (1.78-5.38) K/mm3 Lymph # (Auto) (1.32-3.57) K/mm3 [place] # (Auto) (0.30-0.82) K/mm3 Eos # (Auto) (0.04-0.54) K/mm3 Baso # (Auto) (0.01-0.08) K/mm3 Neutrophils % (Manual) (40-60) % Band Neutrophils % (0-10) % Lymphocytes % (Manual) (20-40) % Atypical Lymphs % % Monocytes % (Manual) (2-10) % Eosinophils % (Manual) (0.8-7.0) % Basophils % (Manual) (0.2-1.2) Platelet Estimate Plt Morphology Comment Poikilocytosis [place] Cells Acanthocytes (Spur) RBC Morph Comment PT (9.5-12.1) SECONDS INR APTT (24-31) SECONDS D-Dimer, Quantitative (0.19-0.50) mg/L Puncture Site ABG pH (7.35-7.45) ABG pCO2 (35.0-45.0) mmHg ABG pO2 (80.0-100.0) mmHg ABG HCO3 (22.0-26.0) meq/L ABG O2 Saturation (96.0-97.0) % ABG Base Excess (-2-2.0) Johnny Test O2 Delivery Device FiO2 (21.00-100.00) % Sodium (136-145) mEq/L Potassium (3.5-5.1) mEq/L Chloride (98-107) mEq/L Carbon Dioxide (21-32) mEq/L Anion Gap (5-15) BUN (7-18) mg/dL Creatinine (0.7-1.3) mg/dL Est Cr Clr Drug Dosing Estimated GFR (MDRD) (>60) mL/min BUN/Creatinine Ratio (14-18) Glucose (80-115) mg/dL Serum Osmolality (280-300) mosm/kg Lactic Acid (0.4-2.0) mmol/L Calcium (8.5-10.1) mg/dL Magnesium (1.8-2.4) mg/dl Total Bilirubin (0.2-1.0) mg/dL AST (15-37) U/L ALT (16-63) U/L Alkaline Phosphatase (46-116) U/L Troponin I (0.00-0.056) ng/mL NT-Pro-B Natriuret Pep (0-125) pg/mL Total Protein (6.4-8.2) g/dl Albumin (3.4-5.0) g/dl Globulin gm/dL Albumin/Globulin Ratio (1-2) Free T4 (0.76-1.46) ng/dL TSH 3rd Generation (0.358-3.74) uIU/mL Urine Color Yellow (Yellow) Urine Appearance Clear (Clear) Urine pH 5.5 (5.0-8.0) Ur Specific [place] 1.025 (1.005-1.030) Urine Protein 1+ H (Negative) Urine Glucose (UA) Negative (Negative) Urine Ketones Negative (Negative) Urine Occult Blood Negative (Negative) Urine Nitrite Negative (Negative) Urine Bilirubin 2+ H (Negative) Urine Urobilinogen 0.2 (0.2-1.0) Ur Leukocyte Esterase Trace H (Negative) Urine RBC 0-5 (0-5) /hpf Urine WBC 5-10 H (0-5) /hpf Ur Epithelial Cells 0-5 (0-5) /hpf Urine Bacteria Moderate H (FEW) /hpf Urine Mucus Few (FEW) /hpf Urine Osmolality 395 L (400-1100) mosm/kg Ur Random Creatinine 274.7 H (30.0-125.0) mg/dL 09/02/17 09/02/17 09/03/17 Range/Units 21:10 21:10 05:48 WBC 11.28 H (4.23-9.07) K/mm3 RBC 3.57 L (4.63-6.08) M/mm3 Hgb 10.2 L (13.7-17.5) gm/L Hct 31.6 L (40.1-51.0) % MCV 88.5 (79.0-92.2) fl MCH 28.6 (25.7-32.2) pg MCHC 32.3 (32.2-35.5) g/dl RDW Std Deviation 45.0 H (35.1-43.9) fL Plt Count 742 H (163-337) K/mm3 MPV 9.3 L (9.4-12.3) fl Neut % (Auto) 77.0 H (34.0-67.9) % Lymph % (Auto) 11.1 L (21.8-53.1) % [place] % (Auto) 10.8 (5.3-12.2) % Eos % (Auto) 0.1 L (0.8-7.0) Baso % (Auto) 0.1 (0.1-1.2) % Neut # (Auto) 8.69 H (1.78-5.38) K/mm3 Lymph # (Auto) 1.25 L (1.32-3.57) K/mm3 [place] # (Auto) 1.22 H (0.30-0.82) K/mm3 Eos # (Auto) 0.01 L (0.04-0.54) K/mm3 Baso # (Auto) 0.01 (0.01-0.08) K/mm3 Neutrophils % (Manual) (40-60) % Band Neutrophils % (0-10) % Lymphocytes % (Manual) (20-40) % Atypical Lymphs % % Monocytes % (Manual) (2-10) % Eosinophils % (Manual) (0.8-7.0) % Basophils % (Manual) (0.2-1.2) Platelet Estimate Plt Morphology Comment Poikilocytosis [place] Cells Acanthocytes (Spur) RBC Morph Comment PT (9.5-12.1) SECONDS INR APTT (24-31) SECONDS D-Dimer, Quantitative (0.19-0.50) mg/L Puncture Site ABG pH (7.35-7.45) ABG pCO2 (35.0-45.0) mmHg ABG pO2 (80.0-100.0) mmHg ABG HCO3 (22.0-26.0) meq/L ABG O2 Saturation (96.0-97.0) % ABG Base Excess (-2-2.0) Johnny Test O2 Delivery Device FiO2 (21.00-100.00) % Sodium 140 142 (136-145) mEq/L Potassium 4.7 (3.5-5.1) mEq/L Chloride 108 H (98-107) mEq/L Carbon Dioxide 13 L (21-32) mEq/L Anion Gap 23.7 H (5-15) BUN 131 H (7-18) mg/dL Creatinine 4.6 H (0.7-1.3) mg/dL Est Cr Clr Drug Dosing 13.97 Estimated GFR (MDRD) 13 (>60) mL/min BUN/Creatinine Ratio 28.5 H (14-18) Glucose 105 (80-115) mg/dL Serum Osmolality 334 H (280-300) mosm/kg Lactic Acid (0.4-2.0) mmol/L Calcium 8.1 L (8.5-10.1) mg/dL Magnesium (1.8-2.4) mg/dl Total Bilirubin (0.2-1.0) mg/dL AST (15-37) U/L ALT (16-63) U/L Alkaline Phosphatase (46-116) U/L Troponin I (0.00-0.056) ng/mL NT-Pro-B Natriuret Pep (0-125) pg/mL Total Protein (6.4-8.2) g/dl Albumin (3.4-5.0) g/dl Globulin gm/dL Albumin/Globulin Ratio (1-2) Free T4 (0.76-1.46) ng/dL TSH 3rd Generation (0.358-3.74) uIU/mL Urine Color (Yellow) Urine Appearance (Clear) Urine pH (5.0-8.0) Ur Specific [place] (1.005-1.030) Urine Protein (Negative) Urine Glucose (UA) (Negative) Urine Ketones (Negative) Urine Occult Blood (Negative) Urine Nitrite (Negative) Urine Bilirubin (Negative) Urine Urobilinogen (0.2-1.0) Ur Leukocyte Esterase (Negative) Urine RBC (0-5) /hpf Urine WBC (0-5) /hpf Ur Epithelial Cells (0-5) /hpf Urine Bacteria (FEW) /hpf Urine Mucus (FEW) /hpf Urine Osmolality (400-1100) mosm/kg Ur Random Creatinine (30.0-125.0) mg/dL 09/03/17 Range/Units 05:48 WBC (4.23-9.07) K/mm3 RBC (4.63-6.08) M/mm3 Hgb (13.7-17.5) gm/L Hct (40.1-51.0) % MCV (79.0-92.2) fl MCH (25.7-32.2) pg MCHC (32.2-35.5) g/dl RDW Std Deviation (35.1-43.9) fL Plt Count (163-337) K/mm3 MPV (9.4-12.3) fl Neut % (Auto) (34.0-67.9) % Lymph % (Auto) (21.8-53.1) % [place] % (Auto) (5.3-12.2) % Eos % (Auto) (0.8-7.0) Baso % (Auto) (0.1-1.2) % Neut # (Auto) (1.78-5.38) K/mm3 Lymph # (Auto) (1.32-3.57) K/mm3 [place] # (Auto) (0.30-0.82) K/mm3 Eos # (Auto) (0.04-0.54) K/mm3 Baso # (Auto) (0.01-0.08) K/mm3 Neutrophils % (Manual) (40-60) % Band Neutrophils % (0-10) % Lymphocytes % (Manual) (20-40) % Atypical Lymphs % % Monocytes % (Manual) (2-10) % Eosinophils % (Manual) (0.8-7.0) % Basophils % (Manual) (0.2-1.2) Platelet Estimate Plt Morphology Comment Poikilocytosis Ki Cells Acanthocytes (Spur) RBC Morph Comment PT (9.5-12.1) SECONDS INR APTT (24-31) SECONDS D-Dimer, Quantitative (0.19-0.50) mg/L Puncture Site ABG pH (7.35-7.45) ABG pCO2 (35.0-45.0) mmHg ABG pO2 (80.0-100.0) mmHg ABG HCO3 (22.0-26.0) meq/L ABG O2 Saturation (96.0-97.0) % ABG Base Excess (-2-2.0) Johnny Test O2 Delivery Device FiO2 (21.00-100.00) % Sodium 138 (136-145) mEq/L Potassium 4.4 (3.5-5.1) mEq/L Chloride 108 H (98-107) mEq/L Carbon Dioxide 12 L (21-32) mEq/L Anion Gap 22.4 H (5-15) BUN 118 H (7-18) mg/dL Creatinine 4.0 H (0.7-1.3) mg/dL Est Cr Clr Drug Dosing 16.07 Estimated GFR (MDRD) 15 (>60) mL/min BUN/Creatinine Ratio 29.5 H (14-18) Glucose 149 H (80-115) mg/dL Serum Osmolality (280-300) mosm/kg Lactic Acid (0.4-2.0) mmol/L Calcium 7.8 L (8.5-10.1) mg/dL Magnesium 2.1 (1.8-2.4) mg/dl Total Bilirubin (0.2-1.0) mg/dL AST (15-37) U/L ALT (16-63) U/L Alkaline Phosphatase (46-116) U/L Troponin I (0.00-0.056) ng/mL NT-Pro-B Natriuret Pep (0-125) pg/mL Total Protein (6.4-8.2) g/dl Albumin (3.4-5.0) g/dl Globulin gm/dL Albumin/Globulin Ratio (1-2) Free T4 1.09 (0.76-1.46) ng/dL TSH 3rd Generation 1.346 (0.358-3.74) uIU/mL Urine Color (Yellow) Urine Appearance (Clear) Urine pH (5.0-8.0) Ur Specific [place] (1.005-1.030) Urine Protein (Negative) Urine Glucose (UA) (Negative) Urine Ketones (Negative) Urine Occult Blood (Negative) Urine Nitrite (Negative) Urine Bilirubin (Negative) Urine Urobilinogen (0.2-1.0) Ur Leukocyte Esterase (Negative) Urine RBC (0-5) /hpf Urine WBC (0-5) /hpf Ur Epithelial Cells (0-5) /hpf Urine Bacteria (FEW) /hpf Urine Mucus (FEW) /hpf Urine Osmolality (400-1100) mosm/kg Ur Random Creatinine (30.0-125.0) mg/dL Syed Results Last 24 Hours: Microbiology 09/02/17 15:20 Influenza Type A Antigen Screen - Final Nasopharyngeal Swab NEGATIVE INFLUENZA A VIRUS AG Influenza Type B Antigen Screen - Final NEGATIVE INFLUENZA B VIRUS AG Med Orders - Current: Current Medications Acetaminophen (Tylenol) 650 mg PO Q4H PRN PRN Reason: Pain (Mild 1-3)/fever Hydrocodone Bitart/Acetaminophen ([place] 325-5 Mg) 1 tab PO Q4H PRN PRN Reason: Pain (moderate 4-6) Albuterol/Ipratropium (Duoneb 3.0-0.5 Mg/3 Ml) 3 ml NEB Q4H PRN PRN Reason: Shortness Of Breath/wheezing Bisacodyl (Dulcolax) 5 mg PO DAILY PRN PRN Reason: Constipation Docusate Sodium (Colace) 100 mg PO BID PRN PRN Reason: Constipation Hydralazine HCl (Apresoline) 10 mg IVPUSH Q4H PRN PRN Reason: Hypertension Hydromorphone HCl (Dilaudid) 0.25 mg IVPUSH Q2H PRN PRN Reason: Pain (severe 7-10) Norepinephrine Bitartrate 4 mg (/ Dextrose/Water) 250 mls @ 37.5 mls/hr IV TITRATE YAZAN; Protocol Last Titration: 09/03/17 06:40 Dose: 15 mcg/min, 56.25 mls/hr Promethazine HCl 6.25 mg/ (Sodium Chloride) 50.25 mls @ 100 mls/hr IV Q6H PRN PRN Reason: Nausea/Vomiting Ceftriaxone Sodium 1 gm/ (Sodium Chloride) 100 mls @ 200 mls/hr IV Q24H YAZAN Sodium Chloride (Normal Saline) 1,000 mls @ 100 mls/hr IV ASDIRECTED YAZAN Last Admin: 09/03/17 01:22 Dose: 100 mls/hr Lorazepam (Ativan) 2 mg IVPUSH Q4H PRN PRN Reason: Seizures Lorazepam (Ativan) 0.25 mg IV Q6H PRN PRN Reason: Anxiety Magnesium Sulfate (Pharmacy To Dose - Magnesium Replacement) 0 dose .XX ASDIRECTED PRN PRN Reason: RX TO WATCH MAG LEVELS Metoprolol Tartrate (Lopressor) 5 mg IVPUSH Q4H PRN PRN Reason: Tachycardia Last Admin: 09/03/17 05:11 Dose: 5 mg Ondansetron HCl (Zofran) 4 mg IV Q6H PRN PRN Reason: Nausea/Vomiting Polyethylene Glycol (Miralax) 17 gm PO DAILY PRN PRN Reason: Constipation Potassium Chloride (Pharmacy To Dose - Potassium Replacement) 0 dose .XX ASDIRECTED PRN PRN Reason: RX TO WATCH K LEVELS Saccharomyces Boulardii (Florastor) 250 mg PO DAILY ON LICENSE OF [facility] Senna/Docusate Sodium (Senna Plus) 1 tab PO BID PRN PRN Reason: Constipation Temazepam (Restoril) 7.5 mg PO BEDTIME PRN PRN Reason: Sleep Discontinued Medications Sodium Chloride (Normal Saline) 1,000 mls @ 999 mls/hr IV ONETIME ONE Stop: 09/02/17 15:24 Last Admin: 09/02/17 14:35 Dose: 999 mls/hr Magnesium Sulfate 2 gm/ Premix 50 mls @ 50 mls/hr IV ONETIME STA Stop: 09/02/17 17:05 Last Admin: 09/02/17 16:15 Dose: 50 mls/hr Sodium Chloride (Normal Saline) 1,000 mls @ 999 mls/hr IV ONETIME ONE Stop: 09/02/17 17:39 Last Admin: 09/02/17 16:55 Dose: 999 mls/hr Levofloxacin/Dextrose 250 mg/ (Premix) 50 mls @ 50 mls/hr IV ONETIME ONE Stop: 09/02/17 18:09 Last Admin: 09/02/17 17:47 Dose: 50 mls/hr Sodium Chloride (Normal Saline) 250 mls @ 999 mls/hr IV ONETIME ONE Stop: 09/03/17 01:09 Last Admin: 09/03/17 01:07 Dose: 999 mls/hr - Exam General: Alert, Cooperative, No Acute Distress HEENT: Pupils Equal, Pupils Reactive, Mucous Membr. Moist/[place], Other (w/o dentures) Neck: Supple, Trachea Midline, No JVD, No Thyromegaly Lungs: Normal Respiratory Effort, Decreased Breath Sounds Cardiovascular: Regular Rate, Regular Rhythm GI/Abdominal Exam: Normal Bowel Sounds, Soft, Non-Tender, No Organomegaly, No Distention, No Abnormal Bruit (Male) Exam: Deferred Back Exam: Normal Inspection, Decreased Range of Motion Extremities: Normal Inspection, Normal Range of Motion, Non-Tender, No Pedal Edema, Normal Capillary Refill Peripheral Pulses: 2+: Dorsalis Pedis (L), Dorsalis Pedis (R) Skin: Warm, Dry, Intact, Ecchymosis Neurological: No New Focal Deficit. No: Normal Gait Psy/Mental Status: Alert, Normal Affect, Normal Mood - Problem List Review Problem List Initiated/Reviewed/Updated: Yes - My Orders Last 24 Hours: My Active Orders 09/02/17 17:10 CREATININE,URINE RAND [URCHEM] Routine OSMOLALITY,URINE [URCHEM] Stat 09/02/17 19:58 LORazepam [Ativan] 2 mg IVPUSH Q4H PRN Metoprolol Tartrate [Lopressor] 5 mg IVPUSH Q4H PRN hydrALAZINE [Apresoline] 10 mg IVPUSH Q4H PRN 09/02/17 20:00 Magnesium Rep Pharmacy to Dose [Pharmacy to Dose - Magnesium Replacement] 0 dose .XX ASDIRECTED PRN Potassium Rep Pharmacy to Dose [Pharmacy to Dose - Potassium Replacement] 0 dose .XX ASDIRECTED PRN 09/02/17 20:06 Height and Weight [RC] 04 Oxygen Therapy [RC] PRN Up With Assistance [RC] ASDIRECTED Up ad Vanna [RC] ASDIRECTED VTE/DVT Education [RC] Vital Signs [RC] Q1HR Acetaminophen [Tylenol] 650 mg PO Q4H PRN Acetaminophen/HYDROcodone [[place] 325-5 MG] 1 tab PO Q4H PRN Albuterol/Ipratropium [DuoNeb 3.0-0.5 MG/3 ML] 3 ml NEB Q4H PRN Bisacodyl [Dulcolax] 5 mg PO DAILY PRN Docusate Sodium [Colace] 100 mg PO BID PRN Docusate Sodium/Sennosides [Senna Plus] 1 tab PO BID PRN HYDROmorphone [Dilaudid] 0.25 mg IVPUSH Q2H PRN LORazepam [Ativan] 0.25 mg IV Q6H PRN Ondansetron [Zofran] 4 mg IV Q6H PRN Polyethylene Glycol 3350 [MiraLAX] 17 gm PO DAILY PRN Promethazine [Phenergan] 6.25 mg Sodium Chloride 0.9% [Normal Saline] 50 ml IV Q6H Temazepam [Restoril] 7.5 mg PO BEDTIME PRN 09/02/17 20:07 Cardiac Monitoring [RC] CONTINUOUS Intake and Output [RC] 04,16 Sequential Compression Device [OM.PC] Per Unit Routine 09/02/17 20:16 RT Aerosol Therapy [RC] ASDIRECTED Consult to Case Management [CONS] Routine Consult to Tractor Crane Operator [CONS] Routine Consult to Ms Access Database Developer [CONS] Routine Consult to Spiritual Care [CONS] Routine OT Evaluation and Treatment [CONS] Routine PT Evaluation and Treatment [CONS] Routine 09/02/17 20:41 EOSINOPHILS, URINE Stat URIC ACID, URINE Stat 09/02/17 20:50 CIWAA Assessment [RC] QSHIFT 09/02/17 Dinner 2 Gram Sodium Diet [DIET] Fluid Restriction [DIET] Renal Non-Dialysis Diet [DIET] 09/03/17 00:56 Sodium Chloride 0.9% [Normal Saline] 1,000 ml IV ASDIRECTED 09/03/17 01:10 Code Status [Resuscitation Status] Routine 09/03/17 05:48 BASIC METABOLIC PANEL,BMP [CHEM] AM C-REACTIVE PROTEIN [CHEM] AM CBC WITH AUTO DIFF [HEME] AM MAGNESIUM [CHEM] AM T4 FREE [CHEM] Routine TSH [CHEM] Routine 09/03/17 06:04 VITAMIN D 25-HYROXY (D2, D3) [REF] Routine 09/03/17 07:00 Echo 2D wo Cont [US] Routine Retroperitoneal Ltd [US] Routine 09/03/17 09:00 Saccharomyces Boulardii [Florastor] 250 mg PO DAILY cefTRIAXone [Rocephin] 1 gm Sodium Chloride 0.9% [Normal Saline] 100 ml IV Q24H 09/04/17 05:11 BASIC METABOLIC PANEL,BMP [CHEM] AM C-REACTIVE PROTEIN [CHEM] AM CBC WITH AUTO DIFF [HEME] AM MAGNESIUM [CHEM] AM 09/05/17 05:11 BASIC METABOLIC PANEL,BMP [CHEM] AM C-REACTIVE PROTEIN [CHEM] AM CBC WITH AUTO DIFF [HEME] AM MAGNESIUM [CHEM] AM 09/06/17 05:11 BASIC METABOLIC PANEL,BMP [CHEM] AM C-REACTIVE PROTEIN [CHEM] AM CBC WITH AUTO DIFF [HEME] AM MAGNESIUM [CHEM] AM 09/07/17 05:11 BASIC METABOLIC PANEL,BMP [CHEM] AM C-REACTIVE PROTEIN [CHEM] AM CBC WITH AUTO DIFF [HEME] AM MAGNESIUM [CHEM] AM - Plan Plan:: Assessment/Plan: Acute: Renal Failure - Acute vs Chronic - BUN 130/Cr 5; GFR is 5.0 (no baseline for comparison)--> 118/40; GFR 15 - Renal U/S; no obstructive uropathy - Urine studies-pending; suspect pre-renal azotemia - Continue IV hydration; S/p 2L of NS in ED - Avoid nephrotoxic agents Anemia,Stable - Hgb 10.6--> 10.2 - Likely 2/2 CKD - Monitor Profound Hypotension, Unchanged - 2/2 poor intake and GI loss - Received 2L of NS in ED; cautious on volume overload due to low EF - He is now on Levophed drip; titrate to keep MAP at or > 65 mmHg - Monitor Is/Os and urine Output S/p Hypomagnesemia - Mg 1.6--> 2.1 - 2/2 ARF vs inadequate intake - Replete and monitor Elevated ProBNP - 7271 - He carries a hx/o HF with Reduced EF of 32% in 2014 - Monitor fluid volume - 2D echo today - 2.5 L daily fluid restrictions Generalized Weakness - Multi-factorial but primarily self neglect - PT/OT for deconditioning - Vit D- 8 severely low (30-100 normal) - Thyroid panel- normal - Dietary consult to improve nutritional status Failure To Thrive/Self Neglect - He lives alone - Weight loss of 15-20 lbs weight loss over the past 1-2 weeks - Dietary consult High Risk Fall - Unsteady gait; uses a walker to ambulate - He had fallen twice at home Uncomplicated Cystitis - UA suggestive of UTI--> Cx shows GNR - Continue IV Rocephin 1 gram daily Chronic: HTN OA Prostate Disorder Hx/o Blood Clot Nicotine Dependence ETOH Use/Dependence Plan: He is much better clinically Continue current treatment Routine AM Labs Adequate IV Hydration Monitor electrolytes Continue PT/OT consult SW/CM for d/c planning Code status: CPR only
[2017-09-03] MEDS: Saccharomyces Boulardii (Probiotic) 250 MG Cap PO SCH (08:28)
[2017-09-03] MEDS ORDERED: cefTRIAXone 1 GM in Sodium Chloride 0.9% 100 ML IV SCH (09:00)
--- NOTE | 2017-09-03 12:06 | CR ---
Chest: Frontal view of the chest was obtained. Comparison: Prior chest x-ray of 07/09/12. Heart size and mediastinum are within normal limits. Lungs are clear without acute parenchymal densities. Scoliosis is noted within the spine. Bony structures are osteopenic. Degenerative change is noted within the right shoulder. Impression: 1. Incidental findings. Nothing acute is seen on frontal chest x-ray. Diagnostic code #2
--- NOTE | 2017-09-03 12:55 | US ---
Renal ultrasound: Multiple real-time images of the kidneys were obtained. Comparison: Previous renal ultrasound exam of 07/01/14. Kidneys show no hydronephrosis or mass. Resistivity indices are mildly increased bilaterally. Bilateral ureteral jets are seen within the bladder. Prevoid volume within the bladder is 221 mL and post void volume is 36 mL. Right kidney length: 10.7 cm, left kidney length: 9.6 cm. Impression: 1. Elevated resistivity indices within both kidneys compatible with nonspecific medical renal disease. 2. Small post void residual within the bladder. Diagnostic code #3
[2017-09-03] MEDS ORDERED: Loperamide 2 MG Cap PO ONE (16:24)
[2017-09-04] MEDS: Sodium Chloride 0.9% 1,000 ML IV SCH (05:06)
[2017-09-04] MEDS: Norepinephrine 4 MG in Dextrose 5% in Water 246 ML IV SCH ×2 (06:07)
[2017-09-04] MEDS ORDERED: cefTRIAXone 1 GM in Dextrose 5% in Water 100 ML IV SCH ×2 (07:28)
--- NOTE | 2017-09-04 08:16 | PCM.PN ---
- General Info Date of Service: 09/04/17 Admission Dx/Problem (Free Text): Admission Diagnosis/Problem Admission Diagnosis/Problem Hypotension Subjective Update: In to see Az today. He is lying in bed with his daughter at bedside. Labs have improved today with the exception of his BNP. Will attempt to wean off levophed drip and switch to midodrine. He has no concerns. No pain. BP has been stable. No nursing concerns. Vitamin D was low and will be supplemented. Functional Status: Reports: Pain Controlled, Tolerating Diet, Ambulating, Urinating. Denies: New Symptoms - Review of Systems General: Reports: No Symptoms. Denies: Fever, Fatigue, Malaise HEENT: Reports: No Symptoms. Denies: Ear Pain, Eye Pain, Sore Throat Pulmonary: Reports: No Symptoms. Denies: Shortness of Breath, Cough, Sputum, Wheezing Cardiovascular: Reports: No Symptoms. Denies: Chest Pain, Palpitations, Dyspnea on Exertion, Edema, Lightheadedness Gastrointestinal: Reports: No Symptoms. Denies: Abdominal Pain, Constipation, Diarrhea, Nausea, Vomiting Genitourinary: Reports: No Symptoms. Denies: Dysuria, Frequency, Burning, Pain Musculoskeletal: Reports: No Symptoms Skin: Reports: No Symptoms Neurological: Reports: Difficulty Walking, Weakness, Gait Disturbance. Denies: Dizziness, Numbness, Seizure, Tingling, Trouble Speaking Psychiatric: Reports: No Symptoms - Patient Data Vitals - Most Recent: Last Vital Signs Temp 97.8 F 09/04/17 06:00 Pulse 93 09/04/17 07:00 Resp 26 H 09/04/17 00:00 BP 111/83 09/04/17 07:00 Pulse Ox 92 L 09/04/17 00:00 Weight - Most Recent: 156 lb 14.4 oz I&O - Last 24 Hours: Intake & Output 09/03/17 09/04/17 09/04/17 22:59 06:59 14:59 Intake Total 1997 2369 Output Total 775 200 Balance 1997 1594 -200 Lab Results Last 24 Hours: Laboratory Results - last 24 hr 09/03/17 09/03/17 09/03/17 Range/Units 01:05 06:04 15:00 WBC (4.23-9.07) K/mm3 RBC (4.63-6.08) M/mm3 Hgb (13.7-17.5) gm/L Hct (40.1-51.0) % MCV (79.0-92.2) fl MCH (25.7-32.2) pg MCHC (32.2-35.5) g/dl RDW Std Deviation (35.1-43.9) fL Plt Count (163-337) K/mm3 MPV (9.4-12.3) fl Neut % (Auto) (34.0-67.9) % Lymph % (Auto) (21.8-53.1) % [place] % (Auto) (5.3-12.2) % Eos % (Auto) (0.8-7.0) Baso % (Auto) (0.1-1.2) % Neut # (Auto) (1.78-5.38) K/mm3 Lymph # (Auto) (1.32-3.57) K/mm3 [place] # (Auto) (0.30-0.82) K/mm3 Eos # (Auto) (0.04-0.54) K/mm3 Baso # (Auto) (0.01-0.08) K/mm3 Manual Slide Review Sodium (136-145) mEq/L Potassium (3.5-5.1) mEq/L Chloride (98-107) mEq/L Carbon Dioxide (21-32) mEq/L Anion Gap (5-15) BUN (7-18) mg/dL Creatinine (0.7-1.3) mg/dL Est Cr Clr Drug Dosing mL/min Estimated GFR (MDRD) (>60) mL/min BUN/Creatinine Ratio (14-18) Glucose (80-115) mg/dL Calcium (8.5-10.1) mg/dL Magnesium (1.8-2.4) mg/dl C-Reactive Protein (<1.0) mg/dL Vitamin D 25-Hydroxy 8 L (30-100) ng/mL Ur Uric Acid Concent 27.4 mg/dL C.difficile [id number] Presumptive negative C. difficile Tox (PCR) Negative 09/04/17 09/04/17 Range/Units 05:25 05:25 WBC 7.16 (4.23-9.07) K/mm3 RBC 3.23 L (4.63-6.08) M/mm3 Hgb 9.4 L (13.7-17.5) gm/L Hct 29.0 L (40.1-51.0) % MCV 89.8 (79.0-92.2) fl MCH 29.1 (25.7-32.2) pg MCHC 32.4 (32.2-35.5) g/dl RDW Std Deviation 45.4 H (35.1-43.9) fL Plt Count 632 H (163-337) K/mm3 MPV 9.0 L (9.4-12.3) fl Neut % (Auto) 68.6 H (34.0-67.9) % Lymph % (Auto) 15.4 L (21.8-53.1) % [place] % (Auto) 14.5 H (5.3-12.2) % Eos % (Auto) 0.3 L (0.8-7.0) Baso % (Auto) 0.1 (0.1-1.2) % Neut # (Auto) 4.91 (1.78-5.38) K/mm3 Lymph # (Auto) 1.10 L (1.32-3.57) K/mm3 [place] # (Auto) 1.04 H (0.30-0.82) K/mm3 Eos # (Auto) 0.02 L (0.04-0.54) K/mm3 Baso # (Auto) 0.01 (0.01-0.08) K/mm3 Manual Slide Review Abnormal smear Sodium 141 (136-145) mEq/L Potassium 4.3 (3.5-5.1) mEq/L Chloride 112 H (98-107) mEq/L Carbon Dioxide 15 L (21-32) mEq/L Anion Gap 18.3 H (5-15) BUN 84 H (7-18) mg/dL Creatinine 2.7 H (0.7-1.3) mg/dL Est Cr Clr Drug Dosing 23.80 mL/min Estimated GFR (MDRD) 23 (>60) mL/min BUN/Creatinine Ratio 31.1 H (14-18) Glucose 128 H (80-115) mg/dL Calcium 8.0 L (8.5-10.1) mg/dL Magnesium 1.7 L (1.8-2.4) mg/dl C-Reactive Protein 31.0 H* (<1.0) mg/dL Vitamin D 25-Hydroxy (30-100) ng/mL Ur Uric Acid Concent mg/dL C.difficile [id number] C. difficile Tox (PCR) Syed Results Last 24 Hours: Microbiology 09/03/17 15:00 Stool Occult Blood (SYED) - Final Stool / Feces 09/02/17 14:55 Aerobic Blood Culture - Preliminary Blood - Venous NO GROWTH AFTER 1 DAY Anaerobic Blood Culture - Final 09/02/17 14:45 Aerobic Blood Culture - Preliminary Blood - Venous - Lab Draw NO GROWTH AFTER 1 DAY Anaerobic Blood Culture - Final 09/02/17 15:20 Urine Culture - Preliminary Urine, Quick Cath (In-Out) Gram Negative Rods Med Orders - Current: Current Medications Acetaminophen (Tylenol) 650 mg PO Q4H PRN PRN Reason: Pain (Mild 1-3)/fever Hydrocodone Bitart/Acetaminophen ([place] 325-5 Mg) 1 tab PO Q4H PRN PRN Reason: Pain (moderate 4-6) Albuterol/Ipratropium (Duoneb 3.0-0.5 Mg/3 Ml) 3 ml NEB Q4H PRN PRN Reason: Shortness Of Breath/wheezing Bisacodyl (Dulcolax) 5 mg PO DAILY PRN PRN Reason: Constipation Docusate Sodium (Colace) 100 mg PO BID PRN PRN Reason: Constipation Ergocalciferol (Vitamin D2) 50,000 units PO Q7D [facility] Stop: 09/25/17 09:01 Hydralazine HCl (Apresoline) 10 mg IVPUSH Q4H PRN PRN Reason: Hypertension Hydromorphone HCl (Dilaudid) 0.25 mg IVPUSH Q2H PRN PRN Reason: Pain (severe 7-10) Norepinephrine Bitartrate 4 mg (/ Dextrose/Water) 250 mls @ 37.5 mls/hr IV TITRATE YAZAN; Protocol Last Titration: 09/04/17 07:08 Dose: 5 mcg/min, 18.75 mls/hr Promethazine HCl 6.25 mg/ (Sodium Chloride) 50.25 mls @ 100 mls/hr IV Q6H PRN PRN Reason: Nausea/Vomiting Sodium Chloride (Normal Saline) 1,000 mls @ 100 mls/hr IV ASDIRECTED [facility] Last Admin: 09/04/17 05:06 Dose: 100 mls/hr Ceftriaxone Sodium 1 gm/ (Dextrose/Water) 100 mls @ 200 mls/hr IV DAILY [facility] Lorazepam (Ativan) 2 mg IVPUSH Q4H PRN PRN Reason: Seizures Lorazepam (Ativan) 0.25 mg IV Q6H PRN PRN Reason: Anxiety Magnesium Oxide (Magnesium Oxide) 800 mg PO ONETIME ONE Stop: 09/04/17 09:01 Magnesium Sulfate (Pharmacy To Dose - Magnesium Replacement) 0 dose .XX ASDIRECTED PRN PRN Reason: RX TO WATCH MAG LEVELS Metoprolol Tartrate (Lopressor) 5 mg IVPUSH Q4H PRN PRN Reason: Tachycardia Last Admin: 09/03/17 05:11 Dose: 5 mg Ondansetron HCl (Zofran) 4 mg IV Q6H PRN PRN Reason: Nausea/Vomiting Polyethylene Glycol (Miralax) 17 gm PO DAILY PRN PRN Reason: Constipation Potassium Chloride (Pharmacy To Dose - Potassium Replacement) 0 dose .XX ASDIRECTED PRN PRN Reason: RX TO WATCH K LEVELS Saccharomyces Boulardii (Florastor) 250 mg PO DAILY [facility] Last Admin: 09/03/17 08:28 Dose: 250 mg Senna/Docusate Sodium (Senna Plus) 1 tab PO BID PRN PRN Reason: Constipation Temazepam (Restoril) 7.5 mg PO BEDTIME PRN PRN Reason: Sleep Discontinued Medications Sodium Chloride (Normal Saline) 1,000 mls @ 999 mls/hr IV ONETIME ONE Stop: 09/02/17 15:24 Last Admin: 09/02/17 14:35 Dose: 999 mls/hr Magnesium Sulfate 2 gm/ Premix 50 mls @ 50 mls/hr IV ONETIME STA Stop: 09/02/17 17:05 Last Admin: 09/02/17 16:15 Dose: 50 mls/hr Sodium Chloride (Normal Saline) 1,000 mls @ 999 mls/hr IV ONETIME ONE Stop: 09/02/17 17:39 Last Admin: 09/02/17 16:55 Dose: 999 mls/hr Levofloxacin/Dextrose 250 mg/ (Premix) 50 mls @ 50 mls/hr IV ONETIME ONE Stop: 09/02/17 18:09 Last Admin: 09/02/17 17:47 Dose: 50 mls/hr Ceftriaxone Sodium 1 gm/ (Sodium Chloride) 100 mls @ 200 mls/hr IV Q24H YAZAN Last Admin: 09/03/17 08:28 Dose: 200 mls/hr Sodium Chloride (Normal Saline) 250 mls @ 999 mls/hr IV ONETIME ONE Stop: 09/03/17 01:09 Last Admin: 09/03/17 01:07 Dose: 999 mls/hr Ceftriaxone Sodium 1 gm/ (Dextrose/Water) 100 mls @ 200 mls/hr IV Q24H YAZAN Loperamide HCl (Imodium) 2 mg PO ONETIME ONE Stop: 09/03/17 16:25 Last Admin: 09/03/17 16:38 Dose: 2 mg - Exam Quality Assessment: DVT Prophylaxis General: Alert, Oriented, Cooperative, No Acute Distress HEENT: Pupils Equal, Pupils Reactive, EOMI, Mucous Membr. Moist/[place] Neck: Supple, Trachea Midline, No JVD Lungs: Clear to Auscultation, Normal Respiratory Effort Cardiovascular: Regular Rate, Irregular Rhythm (PVCs) GI/Abdominal Exam: Normal Bowel Sounds, Soft, Non-Tender, No Organomegaly, No Distention, No Abnormal Bruit, No Mass, Pelvis Stable (Male) Exam: Deferred Back Exam: Normal Inspection, Decreased Range of Motion Extremities: Normal Inspection, Normal Range of Motion, Non-Tender, No Pedal Edema, Normal Capillary Refill Peripheral Pulses: 2+: Radial (L), Radial (R), Posterior Tibial (L), Posterior Tibial (R), Dorsalis Pedis (L), Dorsalis Pedis (R) Skin: Warm, Dry, Intact Neurological: No New Focal Deficit. No: Normal Gait Psy/Mental Status: Alert, Normal Affect, Normal Mood - Problem List & Annotations (1) Failure to thrive SNOMED Code(s): 67376988 Code(s): [id number] - Status: Acute Current Visit: Yes (2) Fall at home SNOMED Code(s): 73415227 Code(s): W19.XXXA - UNSPECIFIED FALL, INITIAL ENCOUNTER; Y92.009 - UNSP PLACE IN [facility]SP [facility]PRIVATE[facility] RESIDENCE PL[facility] Status: Acute Current Visit: Yes (3) Generalized weakness SNOMED Code(s): 28432784 Code(s): R53.1 - WEAKNESS Status: Acute Current Visit: Yes (4) High anion gap metabolic acidosis SNOMED Code(s): 59391118 Code(s): E87.2 - ACIDOSIS Status: Acute Current Visit: Yes (5) Hypotension SNOMED Code(s): 62342454 Code(s): I95.9 - HYPOTENSION, UNSPECIFIED Status: Acute Current Visit: Yes (6) Renal failure SNOMED Code(s): 15482451 Code(s): N19 - UNSPECIFIED KIDNEY FAILURE Status: Acute Current Visit: Yes (7) Hypomagnesemia SNOMED Code(s): 872935802 Code(s): E83.42 - HYPOMAGNESEMIA Status: Acute Priority: High Current Visit: Yes - Problem List Review Problem List Initiated/Reviewed/Updated: Yes - Plan Plan:: Assessment/Plan: Acute: Renal Failure, slowly improving - Acute vs Chronic - BUN 130-->131-->118-->84 - Cr 5-->4.6-->4.0-->2.7 - GFR is 12 (no baseline for comparison)--> 13-->15-->23 - Renal U/S; no obstructive uropathy - Urine studies-pending; suspect pre-renal azotemia - Continue IV hydration; S/p 2L of NS in ED - Avoid nephrotoxic agents Anemia,Stable - Hgb 10.6--> 10.2-->9.4-->10.1 - Likely 2/2 CKD - Positive occult blood - Blood in urine - Monitor Profound Hypotension, improving - 2/2 poor intake and GI loss - Received 2L of NS in ED; cautious on volume overload due to low EF - He is now on Levophed drip; titrate to keep MAP at or > 65 mmHg--> titrate down and switch to midodrine - Monitor Is/Os and urine Output Hypomagnesemia - Mg 1.6--> 2.1-->1.7 - 2/2 ARF vs inadequate intake - Replete and monitor Elevated ProBNP - 6471-->62655 - He carries a hx/o HF with Reduced EF of 32% in 2014 - Monitor fluid volume - 2D echo 09/03/17 1. LVEF, by visual estimation is 30-35% 2. Moderately decreased left ventricular systolic function 3. Impaired relaxation (grade 1) pattern of LV diastolic filling 4. The left ventricular internal cavity size is moderately increased 5. Normal right ventricular systolic function 6.There is mild aortic valve sclerosis without stenosis 7. Trace mitral valve regurgitation 8. Trace tricuspid valve regurgitation - 2.5 L daily fluid restrictions, salt restrictions Generalized Weakness - Multi-factorial but primarily self-neglect - PT/OT for deconditioning - Vit D- 8 severely low (30-100 normal)--> supplement - Thyroid panel- normal - Dietary consult to improve nutritional status Failure To Thrive/Self Neglect - He lives alone - Weight loss of 15-20 lbs weight loss over the past 1-2 weeks - Dietary consult - Will likely need SNF placement High Risk Fall - Unsteady gait; uses a walker to ambulate - He had fallen twice at home Uncomplicated Cystitis - UA suggestive of UTI--> Cx shows Klebsiella Oxytoca with multiple sensitivities - Continue IV Rocephin 1 gram daily Chronic: HTN OA Prostate Disorder Hx/o Blood Clot Nicotine Dependence ETOH Use/Dependence Plan: He looks better clinically Continue current treatment Routine AM Labs Adequate IV Hydration Monitor electrolytes Continue PT/OT consult SW/CM for d/c planning Code status: CPR only; PCP: Dr. Nayak
[2017-09-04] MEDS: Saccharomyces Boulardii (Probiotic) 250 MG Cap PO SCH (08:29)
[2017-09-04] MEDS: cefTRIAXone 1 GM in Dextrose 5% in Water 100 ML IV SCH ×2 (08:29)
[2017-09-04] MEDS: Cholecalciferol (Vitamin D3) 5,000 UNIT Tab PO SCH (08:34)
[2017-09-04] MEDS ORDERED: Magnesium Oxide 400 MG Tab PO ONE (09:00)
[2017-09-04] MEDS ORDERED: Ergocalciferol (Vitamin D2) 50,000 Unit Cap PO SCH (09:00)
[2017-09-04] MEDS ORDERED: Cyclobenzaprine 10 MG Tab PO PRN (09:05)
[2017-09-04] MEDS ORDERED: Docusate Sodium 100 MG Cap PO PRN (09:05)
[2017-09-04] MEDS ORDERED: Carvedilol 3.125 MG Tab PO ONE (09:06)
[2017-09-04] MEDS: Ferrous Sulfate 325 MG Tab PO SCH (09:18)
[2017-09-04] MEDS: Clopidogrel 75 MG Tab PO SCH ×2 (09:19→15:15)
[2017-09-04] MEDS ORDERED: Midodrine 5 MG Tab PO SCH (11:00)
[2017-09-04] MEDS: Loperamide 2 MG Cap PO PRN (13:33)
[2017-09-04] MEDS ORDERED: Midodrine 5 MG Tab PO ONE (15:29)
[2017-09-04] MEDS: Midodrine 5 MG Tab PO SCH (18:20)
[2017-09-04] MEDS: Carvedilol 3.125 MG Tab PO SCH (21:22)
[2017-09-05] MEDS: Loperamide 2 MG Cap PO PRN (00:02)
--- NOTE | 2017-09-05 07:41 | PCM.PN ---
- General Info Date of Service: 09/05/17 Admission Dx/Problem (Free Text): Admission Diagnosis/Problem Admission Diagnosis/Problem Hypotension Subjective Update: In to see Az. He is sitting on the edge of the bed eating. He reports a good appetite. Denies any blood in his urine now. Nursing reports some issues with complete emptying of bladder and hesitancy. He does not feel this is the case. Daughter is at bedside. Labs continue to improve. Will downgrade to MSP status. No other nursing concerns. Discussed nicotine patch and at this time he continues to refuse. Functional Status: Reports: Pain Controlled, Tolerating Diet, Ambulating, Urinating. Denies: New Symptoms - Review of Systems General: Reports: Weakness (improving ), Fatigue (improving ), Malaise ( improving ), Appetite (improving ). Denies: Fever, Chills HEENT: Denies: Eye Pain, Post Nasal Drip, Sinus Congestion, Sore Throat Pulmonary: Denies: Shortness of Breath, Cough, Sputum, Wheezing Cardiovascular: Denies: Chest Pain, Palpitations, Dyspnea on Exertion, Edema Gastrointestinal: Denies: Abdominal Pain, Constipation, Diarrhea, Nausea, Vomiting Genitourinary: Reports: No Symptoms Musculoskeletal: Reports: No Symptoms Skin: Reports: No Symptoms Neurological: Reports: Difficulty Walking, Weakness, Gait Disturbance. Denies: Confusion, Dizziness, Numbness, Seizure, Tingling, Trouble Speaking Psychiatric: Reports: No Symptoms - Patient Data Vitals - Most Recent: Last Vital Signs Temp 97.3 F 09/05/17 04:00 Pulse 99 09/05/17 04:00 Resp 20 09/05/17 04:00 BP 115/54 L 09/05/17 04:00 Pulse Ox 95 09/05/17 04:00 Orthostatic Blood Pressure [ 103/54 Standing] Orthostatic Blood Pressure [ 110/62 Sitting] Orthostatic Blood Pressure [ 105/77 Supine] Weight - Most Recent: 160 lb 1.6 oz I&O - Last 24 Hours: Intake & Output 09/04/17 09/05/17 09/05/17 22:59 06:59 14:59 Intake Total 1960 200 Output Total 500 Balance 1460 200 Lab Results Last 24 Hours: Laboratory Results - last 24 hr 09/03/17 09/04/17 09/04/17 Range/Units 11:05 10:20 13:56 WBC (4.23-9.07) K/mm3 RBC (4.63-6.08) M/mm3 Hgb 10.1 L (13.7-17.5) gm/L Hct 31.3 L (40.1-51.0) % MCV (79.0-92.2) fl MCH (25.7-32.2) pg MCHC (32.2-35.5) g/dl RDW Std Deviation (35.1-43.9) fL Plt Count (163-337) K/mm3 MPV (9.4-12.3) fl Neut % (Auto) (34.0-67.9) % Lymph % (Auto) (21.8-53.1) % [place] % (Auto) (5.3-12.2) % Eos % (Auto) (0.8-7.0) Baso % (Auto) (0.1-1.2) % Neut # (Auto) (1.78-5.38) K/mm3 Lymph # (Auto) (1.32-3.57) K/mm3 [place] # (Auto) (0.30-0.82) K/mm3 Eos # (Auto) (0.04-0.54) K/mm3 Baso # (Auto) (0.01-0.08) K/mm3 Sodium (136-145) mEq/L Potassium (3.5-5.1) mEq/L Chloride (98-107) mEq/L Carbon Dioxide (21-32) mEq/L Anion Gap (5-15) BUN (7-18) mg/dL Creatinine (0.7-1.3) mg/dL Est Cr Clr Drug Dosing mL/min Estimated GFR (MDRD) (>60) mL/min BUN/Creatinine Ratio (14-18) Glucose (80-115) mg/dL Calcium (8.5-10.1) mg/dL Magnesium (1.8-2.4) mg/dl C-Reactive Protein (<1.0) mg/dL NT-Pro-B Natriuret Pep 27568 H (0-125) pg/mL Ur Eosinophil Smear Eos absent (Eos Absent) % EOS 09/05/17 09/05/17 Range/Units 06:30 06:30 WBC 5.81 (4.23-9.07) K/mm3 RBC 3.13 L (4.63-6.08) M/mm3 Hgb 9.0 L (13.7-17.5) gm/L Hct 28.4 L (40.1-51.0) % MCV 90.7 (79.0-92.2) fl MCH 28.8 (25.7-32.2) pg MCHC 31.7 L (32.2-35.5) g/dl RDW Std Deviation 45.8 H (35.1-43.9) fL Plt Count 543 H (163-337) K/mm3 MPV 8.7 L (9.4-12.3) fl Neut % (Auto) 59.1 (34.0-67.9) % Lymph % (Auto) 22.9 (21.8-53.1) % [place] % (Auto) 15.3 H (5.3-12.2) % Eos % (Auto) 0.9 (0.8-7.0) Baso % (Auto) 0.3 (0.1-1.2) % Neut # (Auto) 3.43 (1.78-5.38) K/mm3 Lymph # (Auto) 1.33 (1.32-3.57) K/mm3 [place] # (Auto) 0.89 H (0.30-0.82) K/mm3 Eos # (Auto) 0.05 (0.04-0.54) K/mm3 Baso # (Auto) 0.02 (0.01-0.08) K/mm3 Sodium 144 (136-145) mEq/L Potassium 4.0 (3.5-5.1) mEq/L Chloride 115 H (98-107) mEq/L Carbon Dioxide 16 L (21-32) mEq/L Anion Gap 17.0 H (5-15) BUN 58 H (7-18) mg/dL Creatinine 2.0 H (0.7-1.3) mg/dL Est Cr Clr Drug Dosing 32.13 mL/min Estimated GFR (MDRD) 33 (>60) mL/min BUN/Creatinine Ratio 29.0 H (14-18) Glucose 78 L (80-115) mg/dL Calcium 7.7 L (8.5-10.1) mg/dL Magnesium 1.7 L (1.8-2.4) mg/dl C-Reactive Protein 24.0 H* (<1.0) mg/dL NT-Pro-B Natriuret Pep (0-125) pg/mL Ur Eosinophil Smear (Eos Absent) % EOS Syed Results Last 24 Hours: Microbiology 09/02/17 14:55 Aerobic Blood Culture - Preliminary Blood - Venous NO GROWTH AFTER 2 DAYS Anaerobic Blood Culture - Final 09/02/17 14:45 Aerobic Blood Culture - Preliminary Blood - Venous - Lab Draw NO GROWTH AFTER 2 DAYS Anaerobic Blood Culture - Final 09/02/17 15:20 Urine Culture - Final Urine, Quick Cath (In-Out) Klebsiella Oxytoca Med Orders - Current: Current Medications Acetaminophen (Tylenol) 650 mg PO Q4H PRN PRN Reason: Pain (Mild 1-3)/fever Hydrocodone Bitart/Acetaminophen ([place] 325-5 Mg) 1 tab PO Q4H PRN PRN Reason: Pain (moderate 4-6) Albuterol/Ipratropium (Duoneb 3.0-0.5 Mg/3 Ml) 3 ml NEB Q4H PRN PRN Reason: Shortness Of Breath/wheezing Bisacodyl (Dulcolax) 5 mg PO DAILY PRN PRN Reason: Constipation Carvedilol (Coreg) 3.125 mg PO BID [facility] Last Admin: 09/04/17 21:22 Dose: Not Given Cholecalciferol (Vitamin D3) 5,000 unit PO DAILY [facility] Last Admin: 09/04/17 08:34 Dose: 5,000 unit Cyclobenzaprine HCl (Flexeril) 10 mg PO BID PRN PRN Reason: pain Docusate Sodium (Colace) 100 mg PO BID PRN PRN Reason: Constipation Ferrous Sulfate (Ferrous Sulfate) 325 mg PO DAILY [facility] Last Admin: 09/04/17 09:18 Dose: 325 mg Hydralazine HCl (Apresoline) 10 mg IVPUSH Q4H PRN PRN Reason: Hypertension Hydromorphone HCl (Dilaudid) 0.25 mg IVPUSH Q2H PRN PRN Reason: Pain (severe 7-10) Norepinephrine Bitartrate 4 mg (/ Dextrose/Water) 250 mls @ 37.5 mls/hr IV TITRATE [facility]; Protocol Last Titration: 09/04/17 16:19 Dose: 0 mcg/min, 0 mls/hr Promethazine HCl 6.25 mg/ (Sodium Chloride) 50.25 mls @ 100 mls/hr IV Q6H PRN PRN Reason: Nausea/Vomiting Ceftriaxone Sodium 1 gm/ (Dextrose/Water) 100 mls @ 200 mls/hr IV DAILY [facility] Last Admin: 09/04/17 08:29 Dose: 200 mls/hr Magnesium Sulfate 2 gm/ Premix 50 mls @ 25 mls/hr IV ONETIME ONE Stop: 09/05/17 09:59 Loperamide HCl (Imodium) 2 mg PO Q6H PRN PRN Reason: Diarrhea Last Admin: 09/05/17 00:02 Dose: 2 mg Lorazepam (Ativan) 2 mg IVPUSH Q4H PRN PRN Reason: Seizures Lorazepam (Ativan) 0.25 mg IV Q6H PRN PRN Reason: Anxiety Magnesium Sulfate (Pharmacy To Dose - Magnesium Replacement) 0 dose .XX ASDIRECTED PRN PRN Reason: RX TO WATCH MAG LEVELS Metoprolol Tartrate (Lopressor) 5 mg IVPUSH Q4H PRN PRN Reason: Tachycardia Last Admin: 09/03/17 05:11 Dose: 5 mg Midodrine (Midodrine) 5 mg PO TIDAC [facility] Last Admin: 09/04/17 18:20 Dose: 5 mg Ondansetron HCl (Zofran) 4 mg IV Q6H PRN PRN Reason: Nausea/Vomiting Polyethylene Glycol (Miralax) 17 gm PO DAILY PRN PRN Reason: Constipation Potassium Chloride (Pharmacy To Dose - Potassium Replacement) 0 dose .XX ASDIRECTED PRN PRN Reason: RX TO WATCH K LEVELS Saccharomyces Boulardii (Florastor) 250 mg PO DAILY [facility] Last Admin: 09/04/17 08:29 Dose: 250 mg Senna/Docusate Sodium (Senna Plus) 1 tab PO BID PRN PRN Reason: Constipation Temazepam (Restoril) 7.5 mg PO BEDTIME PRN PRN Reason: Sleep Discontinued Medications Carvedilol (Coreg) 3.125 mg PO ONETIME ONE Stop: 09/04/17 09:07 Last Admin: 09/04/17 09:18 Dose: 3.125 mg Clopidogrel Bisulfate (Plavix) 75 mg PO DAILY [facility] Last Admin: 09/04/17 15:15 Dose: Not Given Docusate Sodium (Colace) 100 mg PO DAILY PRN PRN Reason: Constipation Ergocalciferol (Vitamin D2) 50,000 units PO Q7D [facility] Stop: 09/25/17 09:01 Sodium Chloride (Normal Saline) 1,000 mls @ 999 mls/hr IV ONETIME ONE Stop: 09/02/17 15:24 Last Admin: 09/02/17 14:35 Dose: 999 mls/hr Magnesium Sulfate 2 gm/ Premix 50 mls @ 50 mls/hr IV ONETIME STA Stop: 09/02/17 17:05 Last Admin: 09/02/17 16:15 Dose: 50 mls/hr Sodium Chloride (Normal Saline) 1,000 mls @ 999 mls/hr IV ONETIME ONE Stop: 09/02/17 17:39 Last Admin: 09/02/17 16:55 Dose: 999 mls/hr Levofloxacin/Dextrose 250 mg/ (Premix) 50 mls @ 50 mls/hr IV ONETIME ONE Stop: 09/02/17 18:09 Last Admin: 09/02/17 17:47 Dose: 50 mls/hr Ceftriaxone Sodium 1 gm/ (Sodium Chloride) 100 mls @ 200 mls/hr IV Q24H [facility] Last Admin: 09/03/17 08:28 Dose: 200 mls/hr Sodium Chloride (Normal Saline) 250 mls @ 999 mls/hr IV ONETIME ONE Stop: 09/03/17 01:09 Last Admin: 09/03/17 01:07 Dose: 999 mls/hr Sodium Chloride (Normal Saline) 1,000 mls @ 100 mls/hr IV ASDIRECTED [facility] Last Admin: 09/04/17 05:06 Dose: 100 mls/hr Ceftriaxone Sodium 1 gm/ (Dextrose/Water) 100 mls @ 200 mls/hr IV Q24H [facility] Loperamide HCl (Imodium) 2 mg PO ONETIME ONE Stop: 09/03/17 16:25 Last Admin: 09/03/17 16:38 Dose: 2 mg Magnesium Oxide (Magnesium Oxide) 800 mg PO ONETIME ONE Stop: 09/04/17 09:01 Last Admin: 09/04/17 08:29 Dose: 800 mg Midodrine (Midodrine) 2.5 mg PO TIDAC [facility] Last Admin: 09/04/17 11:21 Dose: 2.5 mg Midodrine (Midodrine) 2.5 mg PO ONETIME ONE Stop: 09/04/17 15:30 Last Admin: 09/04/17 16:20 Dose: 2.5 mg - Exam Quality Assessment: DVT Prophylaxis General: Alert, Oriented, Cooperative, No Acute Distress HEENT: Pupils Equal, Pupils Reactive, EOMI, Mucous Membr. Moist/[place] Neck: Supple, Trachea Midline, No JVD Lungs: Clear to Auscultation, Normal Respiratory Effort, Decreased Breath Sounds Cardiovascular: Regular Rate, Irregular Rhythm (PVCs) GI/Abdominal Exam: Normal Bowel Sounds, Soft, Non-Tender, No Organomegaly, No Distention (Male) Exam: Deferred Back Exam: Normal Inspection, Decreased Range of Motion Extremities: Normal Inspection, Normal Range of Motion, Non-Tender, Normal Capillary Refill, Pedal Edema (1+ bilateral legs ) Peripheral Pulses: 1+: Posterior Tibial (L), Posterior Tibial (R), Dorsalis Pedis (L), Dorsalis Pedis (R), 2+: Radial (L), Radial (R) Skin: Warm, Dry, Intact Neurological: No New Focal Deficit Psy/Mental Status: Alert, Normal Affect, Normal Mood - Problem List & Annotations (1) Failure to thrive SNOMED Code(s): 16075819 Code(s): OYT4497 - Status: Acute Current Visit: Yes (2) Fall at home SNOMED Code(s): 25029116 Code(s): W19.XXXA - UNSPECIFIED FALL, INITIAL ENCOUNTER; Y92.009 [facility] (PRIVATE[facility] Status: Acute Current Visit: Yes (3) Generalized weakness SNOMED Code(s): 34776081 Code(s): R53.1 - WEAKNESS Status: Acute Current Visit: Yes (4) High anion gap metabolic acidosis SNOMED Code(s): 54525171 Code(s): E87.2 - ACIDOSIS Status: Acute Current Visit: Yes (5) Hypotension SNOMED Code(s): 51652897 Code(s): I95.9 - HYPOTENSION, UNSPECIFIED Status: Acute Current Visit: Yes (6) Renal failure SNOMED Code(s): 62216709 Code(s): N19 - UNSPECIFIED KIDNEY FAILURE Status: Acute Current Visit: Yes (7) Hypomagnesemia SNOMED Code(s): 223216618 Code(s): E83.42 - HYPOMAGNESEMIA Status: Acute Priority: High Current Visit: Yes - Problem List Review Problem List Initiated/Reviewed/Updated: Yes - My Orders Last 24 Hours: My Active Orders 09/04/17 09:00 Cholecalciferol (Vitamin D3) [Vitamin D3] 5,000 unit PO DAILY 09/04/17 12:59 Loperamide [Imodium] 2 mg PO Q6H PRN 09/04/17 17:00 Midodrine 5 mg PO TIDAC - Plan Plan:: Assessment/Plan: Acute: Renal Failure, slowly improving - Acute vs Chronic - BUN 130-->131-->118-->84-->58 - Cr 5-->4.6-->4.0-->2.7-->2.0 - GFR is 12 (no baseline for comparison)--> 13-->15-->23-->33 - Renal U/S; no obstructive uropathy - Urine studies-pending; suspect pre-renal azotemia - so far no eosinophils, Uric acid WNL - Continue IV hydration; S/p 2L of NS in ED - caution due to heart failure - Avoid nephrotoxic agents Anemia, Stable - Hgb 10.6--> 10.2-->9.4-->10.1-->9.0 - Likely 2/2 CKD - Positive occult blood - Blood in urine - Monitor Profound Hypotension, improving - 2/2 poor intake and GI loss - Received 2L of NS in ED; cautious on volume overload due to low EF - He is now on Levophed drip; titrate to keep MAP at or > 65 mmHg--> stopped - Midodrine 5mg TID now - BP stable - Monitor Is/Os and urine Output Hypomagnesemia - Mg 1.6--> 2.1-->1.7 - 2/2 ARF vs inadequate intake - Replete and monitor Elevated ProBNP - 4131-->61408 - repeat ordered tomorrow - He carries a hx/o HF with Reduced EF of 32% in 2014 - Monitor fluid volume - 2D echo 09/03/17 1. LVEF, by visual estimation is 30-35% 2. Moderately decreased left ventricular systolic function 3. Impaired relaxation (grade 1) pattern of LV diastolic filling 4. The left ventricular internal cavity size is moderately increased 5. Normal right ventricular systolic function 6.There is mild aortic valve sclerosis without stenosis 7. Trace mitral valve regurgitation 8. Trace tricuspid valve regurgitation - 2.5 L daily fluid restrictions, salt restrictions Generalized Weakness - Multi-factorial but primarily self-neglect - PT/OT for deconditioning - Vit D- 8 severely low (30-100 normal)--> supplement - Thyroid panel- normal - Dietary consult to improve nutritional status Failure To Thrive/Self Neglect - He lives alone - Weight loss of 15-20 lbs weight loss over the past 1-2 weeks - Dietary consult - Will likely need SNF placement High Risk Fall - Unsteady gait; uses a walker to ambulate - He had fallen twice at home Uncomplicated Cystitis - UA suggestive of UTI--> Cx shows Klebsiella Oxytoca with multiple sensitivities - Continue IV Rocephin 1 gram daily Chronic: ([facility]) PE/ Hx/o blood clots GERD CHF HLD: LDL 66 not on statin Anemia COPD - no puffers but still smokes Lung nodules HTN OA PSA/Prostate cancer - asymptomatic - stopped Lupron therapy several years ago Nicotine Dependence - refusing patch ETOH Use/Dependence Plan: He continues to improve Downgrade from ICU to [facility] status Continue current treatment Routine AM Labs Adequate IV Hydration - caution with CHF Monitor electrolytes Continue PT/OT consult SW/CM for d/c planning Code status: CPR only; PCP: Dr. Nayak LOS >96 hrs due to slow improvement and difficulty with renal/CHF balance.
[2017-09-05] MEDS ORDERED: Magnesium Sulfate/Water 2 GM in Premix Bag 1 BAG IV ONE (08:00)
[2017-09-05] MEDS: Carvedilol 3.125 MG Tab PO SCH ×2 (08:15→20:47)
[2017-09-05] MEDS: cefTRIAXone 1 GM in Dextrose 5% in Water 100 ML IV SCH ×2 (08:15)
[2017-09-05] MEDS: Cholecalciferol (Vitamin D3) 5,000 UNIT Tab PO SCH (08:16)
[2017-09-05] MEDS: Midodrine 5 MG Tab PO SCH ×3 (08:17→16:23)
[2017-09-05] MEDS: Ferrous Sulfate 325 MG Tab PO SCH (08:17)
[2017-09-05] MEDS: Saccharomyces Boulardii (Probiotic) 250 MG Cap PO SCH (08:18)
[2017-09-06] MEDS: Midodrine 5 MG Tab PO SCH ×2 (06:42→11:08)
--- NOTE | 2017-09-06 07:24 | PCM.PN ---
- General Info Date of Service: 09/06/17 Admission Dx/Problem (Free Text): Admission Diagnosis/Problem Admission Diagnosis/Problem Hypotension - Patient Data Vitals - Most Recent: Last Vital Signs Temp 97.7 F 09/06/17 02:49 Pulse 141 H 09/06/17 02:49 Resp 18 09/06/17 02:49 BP 112/93 H 09/06/17 02:49 Pulse Ox 82 L 09/06/17 03:21 Orthostatic Blood Pressure [ 103/54 Standing] Orthostatic Blood Pressure [ 110/62 Sitting] Orthostatic Blood Pressure [ 105/77 Supine] Weight - Most Recent: 157 lb 11.2 oz I&O - Last 24 Hours: Intake & Output 09/05/17 09/06/17 09/06/17 22:59 06:59 14:59 Intake Total 1050 400 Output Total 550 Balance 1050 -150 Lab Results Last 24 Hours: Laboratory Results - last 24 hr 09/03/17 09/03/17 09/03/17 Range/Units 01:05 06:04 11:05 WBC (4.23-9.07) K/mm3 RBC (4.63-6.08) M/mm3 Hgb (13.7-17.5) gm/L Hct (40.1-51.0) % MCV (79.0-92.2) fl MCH (25.7-32.2) pg MCHC (32.2-35.5) g/dl RDW Std Deviation (35.1-43.9) fL Plt Count (163-337) K/mm3 MPV (9.4-12.3) fl Neut % (Auto) (34.0-67.9) % Lymph % (Auto) (21.8-53.1) % Rooks % (Auto) (5.3-12.2) % Eos % (Auto) (0.8-7.0) Baso % (Auto) (0.1-1.2) % Neut # (Auto) (1.78-5.38) K/mm3 Lymph # (Auto) (1.32-3.57) K/mm3 Rooks # (Auto) (0.30-0.82) K/mm3 Eos # (Auto) (0.04-0.54) K/mm3 Baso # (Auto) (0.01-0.08) K/mm3 Manual Slide Review Sodium (136-145) mEq/L Potassium (3.5-5.1) mEq/L Chloride (98-107) mEq/L Carbon Dioxide (21-32) mEq/L Anion Gap (5-15) BUN (7-18) mg/dL Creatinine (0.7-1.3) mg/dL Est Cr Clr Drug Dosing mL/min Estimated GFR (MDRD) (>60) mL/min BUN/Creatinine Ratio (14-18) Glucose (80-115) mg/dL Calcium (8.5-10.1) mg/dL Magnesium (1.8-2.4) mg/dl C-Reactive Protein (<1.0) mg/dL NT-Pro-B Natriuret Pep (0-125) pg/mL Vitamin D 25-Hydroxy 8 L (30-100) ng/mL Ur Eosinophil Smear Eos absent (Eos Absent) % EOS Ur Uric Acid Concent 27.4 mg/dL 09/05/17 09/05/17 09/06/17 Range/Units 06:30 06:30 06:00 WBC 8.00 (4.23-9.07) K/mm3 RBC 3.50 L (4.63-6.08) M/mm3 Hgb 9.9 L (13.7-17.5) gm/L Hct 31.4 L (40.1-51.0) % MCV 89.7 (79.0-92.2) fl MCH 28.3 (25.7-32.2) pg MCHC 31.5 L (32.2-35.5) g/dl RDW Std Deviation 46.0 H (35.1-43.9) fL Plt Count 598 H (163-337) K/mm3 MPV 8.8 L (9.4-12.3) fl Neut % (Auto) 66.2 (34.0-67.9) % Lymph % (Auto) 18.8 L (21.8-53.1) % Rooks % (Auto) 13.1 H (5.3-12.2) % Eos % (Auto) 0.8 (0.8-7.0) Baso % (Auto) 0.1 (0.1-1.2) % Neut # (Auto) 5.30 (1.78-5.38) K/mm3 Lymph # (Auto) 1.50 (1.32-3.57) K/mm3 Rooks # (Auto) 1.05 H (0.30-0.82) K/mm3 Eos # (Auto) 0.06 (0.04-0.54) K/mm3 Baso # (Auto) 0.01 (0.01-0.08) K/mm3 Manual Slide Review Abnormal smear Abnormal smear Sodium (136-145) mEq/L Potassium (3.5-5.1) mEq/L Chloride (98-107) mEq/L Carbon Dioxide (21-32) mEq/L Anion Gap (5-15) BUN (7-18) mg/dL Creatinine (0.7-1.3) mg/dL Est Cr Clr Drug Dosing mL/min Estimated GFR (MDRD) (>60) mL/min BUN/Creatinine Ratio (14-18) Glucose (80-115) mg/dL Calcium (8.5-10.1) mg/dL Magnesium (1.8-2.4) mg/dl C-Reactive Protein 24.0 H* (<1.0) mg/dL NT-Pro-B Natriuret Pep (0-125) pg/mL Vitamin D 25-Hydroxy (30-100) ng/mL Ur Eosinophil Smear (Eos Absent) % EOS Ur Uric Acid Concent mg/dL 09/06/17 09/06/17 Range/Units 06:00 06:00 WBC (4.23-9.07) K/mm3 RBC (4.63-6.08) M/mm3 Hgb (13.7-17.5) gm/L Hct (40.1-51.0) % MCV (79.0-92.2) fl MCH (25.7-32.2) pg MCHC (32.2-35.5) g/dl RDW Std Deviation (35.1-43.9) fL Plt Count (163-337) K/mm3 MPV (9.4-12.3) fl Neut % (Auto) (34.0-67.9) % Lymph % (Auto) (21.8-53.1) % Rooks % (Auto) (5.3-12.2) % Eos % (Auto) (0.8-7.0) Baso % (Auto) (0.1-1.2) % Neut # (Auto) (1.78-5.38) K/mm3 Lymph # (Auto) (1.32-3.57) K/mm3 Rooks # (Auto) (0.30-0.82) K/mm3 Eos # (Auto) (0.04-0.54) K/mm3 Baso # (Auto) (0.01-0.08) K/mm3 Manual Slide Review Sodium 141 (136-145) mEq/L Potassium 4.6 (3.5-5.1) mEq/L Chloride 113 H (98-107) mEq/L Carbon Dioxide 17 L (21-32) mEq/L Anion Gap 15.6 H (5-15) BUN 44 H (7-18) mg/dL Creatinine 1.8 H (0.7-1.3) mg/dL Est Cr Clr Drug Dosing 35.70 mL/min Estimated GFR (MDRD) 37 (>60) mL/min BUN/Creatinine Ratio 24.4 H (14-18) Glucose 91 (80-115) mg/dL Calcium 8.2 L (8.5-10.1) mg/dL Magnesium 2.0 (1.8-2.4) mg/dl C-Reactive Protein 24.4 H* (<1.0) mg/dL NT-Pro-B Natriuret Pep 18308 H (0-125) pg/mL Vitamin D 25-Hydroxy (30-100) ng/mL Ur Eosinophil Smear (Eos Absent) % EOS Ur Uric Acid Concent mg/dL Syed Results Last 24 Hours: Microbiology 09/02/17 14:55 Aerobic Blood Culture - Preliminary Blood - Venous NO GROWTH AFTER 3 DAYS Anaerobic Blood Culture - Final 09/02/17 14:45 Aerobic Blood Culture - Preliminary Blood - Venous - Lab Draw NO GROWTH AFTER 3 DAYS Anaerobic Blood Culture - Final Med Orders - Current: Current Medications Acetaminophen (Tylenol) 650 mg PO Q4H PRN PRN Reason: Pain (Mild 1-3)/fever Hydrocodone Bitart/Acetaminophen ([place] 325-5 Mg) 1 tab PO Q4H PRN PRN Reason: Pain (moderate 4-6) Albuterol/Ipratropium (Duoneb 3.0-0.5 Mg/3 Ml) 3 ml NEB Q4H PRN PRN Reason: Shortness Of Breath/wheezing Bisacodyl (Dulcolax) 5 mg PO DAILY PRN PRN Reason: Constipation Carvedilol (Coreg) 3.125 mg PO BID [facility] Last Admin: 09/05/17 20:47 Dose: 3.125 mg Cholecalciferol (Vitamin D3) 5,000 unit PO DAILY [facility] Last Admin: 09/05/17 08:16 Dose: 5,000 unit Cyclobenzaprine HCl (Flexeril) 10 mg PO BID PRN PRN Reason: pain Docusate Sodium (Colace) 100 mg PO BID PRN PRN Reason: Constipation Ferrous Sulfate (Ferrous Sulfate) 325 mg PO DAILY [facility] Last Admin: 09/05/17 08:17 Dose: 325 mg Hydralazine HCl (Apresoline) 10 mg IVPUSH Q4H PRN PRN Reason: Hypertension Hydromorphone HCl (Dilaudid) 0.25 mg IVPUSH Q2H PRN PRN Reason: Pain (severe 7-10) Promethazine HCl 6.25 mg/ (Sodium Chloride) 50.25 mls @ 100 mls/hr IV Q6H PRN PRN Reason: Nausea/Vomiting Ceftriaxone Sodium 1 gm/ (Dextrose/Water) 100 mls @ 200 mls/hr IV DAILY [facility] Last Admin: 09/05/17 08:15 Dose: 200 mls/hr Loperamide HCl (Imodium) 2 mg PO Q6H PRN PRN Reason: Diarrhea Last Admin: 09/05/17 00:02 Dose: 2 mg Lorazepam (Ativan) 2 mg IVPUSH Q4H PRN PRN Reason: Seizures Lorazepam (Ativan) 0.25 mg IV Q6H PRN PRN Reason: Anxiety Magnesium Sulfate (Pharmacy To Dose - Magnesium Replacement) 0 dose .XX ASDIRECTED PRN PRN Reason: RX TO WATCH MAG LEVELS Metoprolol Tartrate (Lopressor) 5 mg IVPUSH Q4H PRN PRN Reason: Tachycardia Last Admin: 09/03/17 05:11 Dose: 5 mg Midodrine (Midodrine) 5 mg PO TIDAC [facility] Last Admin: 09/06/17 06:42 Dose: 5 mg Ondansetron HCl (Zofran) 4 mg IV Q6H PRN PRN Reason: Nausea/Vomiting Polyethylene Glycol (Miralax) 17 gm PO DAILY PRN PRN Reason: Constipation Potassium Chloride (Pharmacy To Dose - Potassium Replacement) 0 dose .XX ASDIRECTED PRN PRN Reason: RX TO WATCH K LEVELS Saccharomyces Boulardii (Florastor) 250 mg PO DAILY [facility] Last Admin: 09/05/17 08:18 Dose: 250 mg Senna/Docusate Sodium (Senna Plus) 1 tab PO BID PRN PRN Reason: Constipation Temazepam (Restoril) 7.5 mg PO BEDTIME PRN PRN Reason: Sleep Discontinued Medications Carvedilol (Coreg) 3.125 mg PO ONETIME ONE Stop: 09/04/17 09:07 Last Admin: 09/04/17 09:18 Dose: 3.125 mg Clopidogrel Bisulfate (Plavix) 75 mg PO DAILY [facility] Last Admin: 09/04/17 15:15 Dose: Not Given Docusate Sodium (Colace) 100 mg PO DAILY PRN PRN Reason: Constipation Ergocalciferol (Vitamin D2) 50,000 units PO Q7D [facility] Stop: 09/25/17 09:01 Sodium Chloride (Normal Saline) 1,000 mls @ 999 mls/hr IV ONETIME ONE Stop: 09/02/17 15:24 Last Admin: 09/02/17 14:35 Dose: 999 mls/hr Magnesium Sulfate 2 gm/ Premix 50 mls @ 50 mls/hr IV ONETIME STA Stop: 09/02/17 17:05 Last Admin: 09/02/17 16:15 Dose: 50 mls/hr Sodium Chloride (Normal Saline) 1,000 mls @ 999 mls/hr IV ONETIME ONE Stop: 09/02/17 17:39 Last Admin: 09/02/17 16:55 Dose: 999 mls/hr Norepinephrine Bitartrate 4 mg (/ Dextrose/Water) 250 mls @ 37.5 mls/hr IV TITRATE YAZAN; Protocol Last Titration: 09/04/17 16:19 Dose: 0 mcg/min, 0 mls/hr Levofloxacin/Dextrose 250 mg/ (Premix) 50 mls @ 50 mls/hr IV ONETIME ONE Stop: 09/02/17 18:09 Last Admin: 09/02/17 17:47 Dose: 50 mls/hr Ceftriaxone Sodium 1 gm/ (Sodium Chloride) 100 mls @ 200 mls/hr IV Q24H [facility] Last Admin: 09/03/17 08:28 Dose: 200 mls/hr Sodium Chloride (Normal Saline) 250 mls @ 999 mls/hr IV ONETIME ONE Stop: 09/03/17 01:09 Last Admin: 09/03/17 01:07 Dose: 999 mls/hr Sodium Chloride (Normal Saline) 1,000 mls @ 100 mls/hr IV ASDIRECTED [facility] Last Admin: 09/04/17 05:06 Dose: 100 mls/hr Ceftriaxone Sodium 1 gm/ (Dextrose/Water) 100 mls @ 200 mls/hr IV Q24H [facility] Magnesium Sulfate 2 gm/ Premix 50 mls @ 25 mls/hr IV ONETIME ONE Stop: 09/05/17 09:59 Last Admin: 09/05/17 08:42 Dose: 25 mls/hr Loperamide HCl (Imodium) 2 mg PO ONETIME ONE Stop: 09/03/17 16:25 Last Admin: 09/03/17 16:38 Dose: 2 mg Magnesium Oxide (Magnesium Oxide) 800 mg PO ONETIME ONE Stop: 09/04/17 09:01 Last Admin: 09/04/17 08:29 Dose: 800 mg Midodrine (Midodrine) 2.5 mg PO TIDAC [facility] Last Admin: 09/04/17 11:21 Dose: 2.5 mg Midodrine (Midodrine) 2.5 mg PO ONETIME ONE Stop: 09/04/17 15:30 Last Admin: 09/04/17 16:20 Dose: 2.5 mg - Problem List & Annotations (1) Failure to thrive SNOMED Code(s): 93773661 Code(s): WLI3086 - Status: Acute Current Visit: Yes (2) Fall at home SNOMED Code(s): 02647070 Code(s): W19.XXXA - UNSPECIFIED FALL, INITIAL ENCOUNTER; Y92.009 - UNSP PLACE IN UNS NON-[facility] Status: Acute Current Visit: Yes (3) Generalized weakness SNOMED Code(s): 16077395 Code(s): R53.1 - WEAKNESS Status: Acute Current Visit: Yes (4) High anion gap metabolic acidosis SNOMED Code(s): 52277432 Code(s): E87.2 - ACIDOSIS Status: Acute Current Visit: Yes (5) Hypotension SNOMED Code(s): 67569446 Code(s): I95.9 - HYPOTENSION, UNSPECIFIED Status: Acute Current Visit: Yes (6) Renal failure SNOMED Code(s): 44050690 Code(s): N19 - UNSPECIFIED KIDNEY FAILURE Status: Acute Current Visit: Yes (7) Hypomagnesemia SNOMED Code(s): 831659129 Code(s): E83.42 - HYPOMAGNESEMIA Status: Acute Priority: High Current Visit: Yes - My Orders Last 24 Hours: My Active Orders 09/07/17 05:11 PRO B-TYPE NATRIUR PEPT,BNPPRO [CHEM] DAILY 09/08/17 05:11 PRO B-TYPE NATRIUR PEPT,BNPPRO [CHEM] DAILY 09/09/17 05:11 PRO B-TYPE NATRIUR PEPT,BNPPRO [CHEM] DAILY - Plan Plan:: Assessment/Plan: Acute: Renal Failure, slowly improving - Acute vs Chronic - BUN 130-->131-->118-->84-->58 - Cr 5-->4.6-->4.0-->2.7-->2.0 - GFR is 12 (no baseline for comparison)--> 13-->15-->23-->33 - Renal U/S; no obstructive uropathy - Urine studies-pending; suspect pre-renal azotemia - so far no eosinophils, Uric acid WNL - Continue IV hydration; S/p 2L of NS in ED - caution due to heart failure - Avoid nephrotoxic agents Anemia, Stable - Hgb 10.6--> 10.2-->9.4-->10.1-->9.0 - Likely 2/2 CKD - Positive occult blood - Blood in urine - Monitor Profound Hypotension, improving - 2/2 poor intake and GI loss - Received 2L of NS in ED; cautious on volume overload due to low EF - He is now on Levophed drip; titrate to keep MAP at or > 65 mmHg--> stopped - Midodrine 5mg TID now - BP stable - Monitor Is/Os and urine Output Hypomagnesemia - Mg 1.6--> 2.1-->1.7 - 2/2 ARF vs inadequate intake - Replete and monitor Elevated ProBNP - 7271-->37928 - repeat ordered tomorrow - He carries a hx/o HF with Reduced EF of 32% in 2014 - Monitor fluid volume - 2D echo 09/03/17 1. LVEF, by visual estimation is 30-35% 2. Moderately decreased left ventricular systolic function 3. Impaired relaxation (grade 1) pattern of LV diastolic filling 4. The left ventricular internal cavity size is moderately increased 5. Normal right ventricular systolic function 6.There is mild aortic valve sclerosis without stenosis 7. Trace mitral valve regurgitation 8. Trace tricuspid valve regurgitation - 2.5 L daily fluid restrictions, salt restrictions Generalized Weakness - Multi-factorial but primarily self-neglect - PT/OT for deconditioning - Vit D- 8 severely low (30-100 normal)--> supplement - Thyroid panel- normal - Dietary consult to improve nutritional status Failure To Thrive/Self Neglect - He lives alone - Weight loss of 15-20 lbs weight loss over the past 1-2 weeks - Dietary consult - Will likely need SNF placement High Risk Fall - Unsteady gait; uses a walker to ambulate - He had fallen twice at home Uncomplicated Cystitis - UA suggestive of UTI--> Cx shows Klebsiella Oxytoca with multiple sensitivities - Continue IV Rocephin 1 gram daily Chronic: (reviewed [facility]) PE/ Hx/o blood clots GERD CHF HLD: LDL 66 not on statin Anemia COPD - no puffers but still smokes Lung nodules HTN OA PSA/Prostate cancer - asymptomatic - stopped Lupron therapy several years ago Nicotine Dependence - refusing patch ETOH Use/Dependence Plan: He continues to improve Downgrade from ICU to MSP status Continue current treatment Routine AM Labs Adequate IV Hydration - caution with CHF Monitor electrolytes Continue PT/OT consult SW/CM for d/c planning Code status: CPR only; PCP: Dr. Nayak LOS >96 hrs due to slow improvement and difficulty with renal/CHF balance.
[2017-09-06] MEDS: cefTRIAXone 1 GM in Dextrose 5% in Water 100 ML IV SCH ×2 (08:15)
[2017-09-06] MEDS: Carvedilol 3.125 MG Tab PO SCH (08:20)
[2017-09-06] MEDS: Saccharomyces Boulardii (Probiotic) 250 MG Cap PO SCH (08:20)
[2017-09-06] MEDS: Cholecalciferol (Vitamin D3) 5,000 UNIT Tab PO SCH (08:21)
[2017-09-06] MEDS: Ferrous Sulfate 325 MG Tab PO SCH (08:21)
--- NOTE | 2017-09-06 08:45 | PCM.DCSUM1 ---
Discharge Summary - Hospital Course HPI Initial Comments: This is a 72 yo white male with a past medical hx/o HTN, Hx/o Blood Clot, OA, Prostate Disorder, and HF with Reduced EF of 32% 2014 who comes in for evaluation of essentially failure to thrive or self neglect. He reports primarily generalized weakness and anorexia. He recently had episode of watery diarrhea and emesis for a week now. As a result, he lost about 15-20 lbs. His daughter who is present at bedside, states he had fallen at least twice. He has unstable gait and ambulates with a walker. Patient lives alone and has some sort of a point of care technician that visits him everyday. His initial workup in the emergency department shows a CBC remarkable for WBC of 15.01, RBC of 3.64, hemoglobin of 10.6, hematocrit of 32.2, RDW of 45.2, platelet count of 785, MPV of 9.3, neutrophils of 81% and lymphocytes of 11%. His coagulation studies show PT of 12.9, INR of 1.19, APTT of 30 and D d-dimer of 2.22. His ABG shows pH of 7.36, PCO2 of 20.3, PO2 of 74, HCO3 of 11.1, and O2 sat of 92.2% on room air. His chemistry is remarkable for CO2 14, anion gap of 25.9, BUN of 130, creatinine of 5.0, GFR of 12, lactic acid of 1.2, magnesium of 1.6, AST of 14, alkaline phosphatase of 130, proBNP of 7271 and albumin of 2.2. His initial troponin is less than 0.017. UA is pos but not strongly suggestive of urinary tract infection. His chest x-ray shows no acute abnormal finding. Patient is being admitted for profound hypotension, acute renal failure and failure to thrive. His code status is CPR only. - Discharge Data Discharge Date: 09/06/17 (Admit date: 09/02/17) Discharge Disposition: DC/Tfer to SNF 03 Condition: Good - Discharge Diagnosis/Problem(s) (1) Failure to thrive SNOMED Code(s): 10994020 ICD Code: [id number] - Status: Acute Priority: High Current Visit: Yes Qualifiers: Failure to thrive age range: in adult Qualified Code(s): R62.7 - Adult failure to thrive (2) Fall at home SNOMED Code(s): 25515226 ICD Code: W19.XXXA - UNSPECIFIED FALL, INITIAL ENCOUNTER; Y92.009 - UNSP PLACE IN UNSP NON-INSTITUT (PRIVATE) RESIDENCE PLACE Status: Acute Priority: High Current Visit: Yes Qualifiers: Encounter type: initial encounter Qualified Code(s): W19.XXXA - Unspecified fall, initial encounter; Y92.009 - Unspecified place in unspecified non-institutional (private) residence as the place of occurrence of the external cause (3) Generalized weakness SNOMED Code(s): 50711911 ICD Code: R53.1 - WEAKNESS Status: Acute Priority: High Current Visit: Yes (4) High anion gap metabolic acidosis SNOMED Code(s): 30707524 ICD Code: E87.2 - ACIDOSIS Status: Acute Priority: High Current Visit: Yes (5) Hypotension SNOMED Code(s): 69125574 ICD Code: I95.9 - HYPOTENSION, UNSPECIFIED Status: Acute Priority: High Current Visit: Yes Qualifiers: Hypotension type: unspecified hypotension type Qualified Code(s): I95.9 - Hypotension, unspecified (6) Renal failure SNOMED Code(s): 85189003 ICD Code: N19 - UNSPECIFIED KIDNEY FAILURE Status: Acute Current Visit: Yes Qualifiers: Renal failure chronicity: acute Acute renal failure type: unspecified Qualified Code(s): N17.9 - Acute kidney failure, unspecified (7) Hypomagnesemia SNOMED Code(s): 585965687 ICD Code: E83.42 - HYPOMAGNESEMIA Status: Acute Priority: High Current Visit: Yes (8) Heart failure SNOMED Code(s): 10927595 ICD Code: I50.9 - HEART FAILURE, UNSPECIFIED Status: Acute Priority: High Current Visit: Yes Qualifiers: Heart failure type: unspecified Heart failure chronicity: unspecified Qualified Code(s): I50.9 - Heart failure, unspecified - Patient Summary/Data Consults: Consultations 09/02/17 20:16 Consult to Case Management [CONS] Routine Consult to Leasing Specialist [CONS] Routine Consult to Tip Cutter [CONS] Routine Consult to Spiritual Care [CONS] Routine OT Evaluation and Treatment [CONS] Routine PT Evaluation and Treatment [CONS] Routine Labs Pending at D/C: None Recommended Follow-up Testing/Procedures: Follow-up with PCP within 7-10 days. Recommend a CBC, BMP, and magnesium lab draw at that time. Hospital Course: Assessment/Plan: Acute: Renal Failure, improving - Acute vs Chronic - BUN 130-->131-->118-->84-->58-->44 - Cr 5-->4.6-->4.0-->2.7-->2.0-->1.8 - GFR is 12 (no baseline for comparison)--> 13-->15-->23-->33-->37 - Renal U/S; no obstructive uropathy - Urine studies; suspect pre-renal azotemia - so far no eosinophils, Uric acid WNL - Continue IV hydration; S/p 2L of NS in ED - caution due to heart failure - stopped - Avoid nephrotoxic agents Anemia, Stable - Hgb 10.6--> 10.2-->9.4-->10.1-->9.0-->9.9 - Likely 2/2 CKD - Positive occult blood - Blood in urine - Monitor Profound Hypotension, improving - 2/2 poor intake and GI loss - Received 2L of NS in ED; cautious on volume overload due to low EF - He is now on Levophed drip; titrate to keep MAP at or > 65 mmHg--> stopped - Midodrine 5mg TID now - BP stable - Monitor Is/Os and urine Output Heart Failure - 7271-->13384 -->03366 - He carries a hx/o HF with Reduced EF of 32% in 2014 - Monitor fluid volume - 2D echo 09/03/17 1. LVEF, by visual estimation is 30-35% 2. Moderately decreased left ventricular systolic function 3. Impaired relaxation (grade 1) pattern of LV diastolic filling 4. The left ventricular internal cavity size is moderately increased 5. Normal right ventricular systolic function 6.There is mild aortic valve sclerosis without stenosis 7. Trace mitral valve regurgitation 8. Trace tricuspid valve regurgitation - 2L daily fluid restrictions, salt restrictions - Looks good clinically, no wet lung sounds, minimal edema Generalized Weakness, improving - Multi-factorial but primarily self-neglect - PT/OT for deconditioning - Vit D- 8 severely low (30-100 normal)--> supplement - Thyroid panel- normal - Dietary consult to improve nutritional status Failure To Thrive/Self Neglect - He lives alone - Weight loss of 15-20 lbs weight loss over the past 1-2 weeks - Dietary consult - Will likely need SNF placement High Risk Fall - Unsteady gait; uses a walker to ambulate - He had fallen twice at home Uncomplicated Cystitis - UA suggestive of UTI--> Cx shows Klebsiella Oxytoca with multiple sensitivities - Continue IV Rocephin 1 gram daily--> switch to PO keflex Hypomagnesemia, resolved - Mg 1.6--> 2.1-->1.7-->2.0 - 2/2 ARF vs inadequate intake - Replete and monitor Chronic: (reviewed [facility]) PE/ Hx/o blood clots GERD CHF HLD: LDL 66 not on statin Anemia COPD - no puffers but still smokes Lung nodules HTN OA PSA/Prostate cancer - asymptomatic - stopped Lupron therapy several years ago Nicotine Dependence - refusing patch ETOH Use/Dependence Plan: He continues to improve Downgrade from ICU to [facility] status Continue current treatment Routine AM Labs Adequate IV Hydration - caution with CHF Monitor electrolytes Continue PT/OT consult SW/CM for d/c planning Code status: CPR only; PCP: Dr. Nayak LOS >96 hrs due to slow improvement and difficulty with renal/CHF balance. Overall Az did quite well and continues to improve. His appetite has improved. His kidney function continues to improve as well. He was found to have heart failure with his echo and BNP listed above. He will be started on a Lasix Sunday, Sunday, Sunday 10mg. If BP is less than 100/60 this should be held. If he starts to have SOB or increased edema he should take a second pill and contact his PCP. He will also be supplemented for his potassium on these days. He was instructed to take his BP daily and write it down. This should be brought to all medical appointments. He also had a UTI and was started on IV rocephin. He will be switched to PO keflex today for a 2 day course. His BP has been quite low and he was on a levophed drip for several days. He was transitioned to PO Midodrine 5mg TID and has been stable and asymptomatic. He looks much better. He is set to be discharged today to [facility] with Dr. Gtz accepting. PT/OT is recommending continued PT/OT services. He was a smoker prior to admission. He has been refusing patches here and states he doesn 't think he will need any of them. Therefore no prescription for nicotine patches will be sent. His magnesium was low and was supplemented. He will be discharged on vitamin D as it was very low here (as above). He will also be given a probiotic. He should follow-up with his PCP within 7-10 days of discharge, sooner if needed. We are recommending a CBC, BMP, and BNP be drawn at that time, at the PCPs discretion. - Patient Instructions Diet: Heart Healthy Diet Fluid Restriction: 2000 mL Activity: As Tolerated Driving: Do Not Drive Notify Provider of: Fever, Increased Pain, Nausea and/or Vomiting - Discharge Plan Prescriptions/Med Rec: Cephalexin [Keflex] 500 mg PO Q12HR #4 cap Cholecalciferol (Vitamin D3) [Vitamin D3] 5,000 unit PO DAILY #15 tablet Furosemide [Lasix] 10 mg PO ASDIRECTED #20 tab Midodrine 5 mg PO TIDAC #40 tablet Potassium Chloride 10 meq PO ASDIRECTED #20 tablet.er Saccharomyces Boulardii [Florastor] 250 mg PO DAILY #30 cap Home Medications: Home Meds Carvedilol 3.125 mg PO BID 09/03/17 [History] Clopidogrel [Plavix] 75 mg PO DAILY 09/03/17 [History] Cyclobenzaprine [Flexeril] 10 mg PO BID PRN 09/03/17 [History] Docusate Sodium [Colace] 100 mg PO DAILY PRN 09/03/17 [History] Ferrous Sulfate [Iron] 325 mg PO DAILY 09/03/17 [History] Lisinopril 20 mg PO QAM 09/03/17 [History] Menthol/Methyl Salicylate [Icy Hot] TOP PRN 09/03/17 [History] Urea [Urea 20% Crm] TOP PRN 09/03/17 [History] Cephalexin [Keflex] 500 mg PO Q12HR #4 cap 09/06/17 [Rx] Cholecalciferol (Vitamin D3) [Vitamin D3] 5,000 unit PO DAILY #15 tablet [Rx] Furosemide [Lasix] 10 mg PO ASDIRECTED #20 tab 09/06/17 [Rx] Midodrine 5 mg PO TIDAC #40 tablet 09/06/17 [Rx] Potassium Chloride 10 meq PO ASDIRECTED #20 tablet.er 09/06/17 [Rx] Saccharomyces Boulardii [Florastor] 250 mg PO DAILY #30 cap 09/06/17 [Rx] Patient Handouts: Hypotension, [id number], Heart Failure, Mnkb-pr-[id number], Steps to Quit Smoking Referrals: Patrizia Nayak DO [Primary Care Provider] - (Ask about having a TDaP vaccine.) Ish Gtz MD [Physician] - - Discharge Summary/Plan Comment DC Time >30 min.: Yes (45 mins) - General Info Date of Service: 09/06/17 Admission Dx/Problem (Free Text: Weakness Subjective Update: In to see Az. He is lying in bed resting. He has no concerns. No current pain or SOB. Nursing has no concerns. His labs continue to improve. He has had Lasix added to his medication list. He will be discharged to [facility] today. Functional Status: Reports: Pain Controlled, Tolerating Diet, Ambulating, Urinating. Denies: New Symptoms - Review of Systems General: Reports: Weakness (impoving ), Fatigue (improving ), Malaise ( improving ). Denies: Fever HEENT: Reports: No Symptoms Pulmonary: Reports: No Symptoms. Denies: Shortness of Breath, Cough, Sputum, Wheezing Cardiovascular: Reports: No Symptoms. Denies: Chest Pain, Dyspnea on Exertion, Edema Gastrointestinal: Reports: No Symptoms. Denies: Abdominal Pain, Constipation, Diarrhea, Nausea, Vomiting Genitourinary: Reports: No Symptoms Musculoskeletal: Reports: No Symptoms Skin: Reports: No Symptoms Neurological: Reports: Difficulty Walking, Weakness, Gait Disturbance. Denies: Confusion, Dizziness, Tingling, Trouble Speaking Psychiatric: Reports: No Symptoms - Patient Data Vitals - Most Recent: Last Vital Signs Temp 97.7 F 09/06/17 02:49 Pulse 100 09/06/17 08:20 Resp 18 09/06/17 02:49 BP 112/93 H 09/06/17 08:20 Pulse Ox 82 L 09/06/17 03:21 Orthostatic Blood Pressure [ 103/54 Standing] Orthostatic Blood Pressure [ 110/62 Sitting] Orthostatic Blood Pressure [ 105/77 Supine] Weight - Most Recent: 157 lb 11.2 oz I&O - Last 24 hours: Intake & Output 09/05/17 09/06/17 09/06/17 22:59 06:59 14:59 Intake Total 1050 400 Output Total 550 Balance 1050 -150 Lab Results - Last 24 hrs: Laboratory Results - last 24 hr 09/03/17 09/03/17 09/03/17 Range/Units 01:05 06:04 11:05 WBC (4.23-9.07) K/mm3 RBC (4.63-6.08) M/mm3 Hgb (13.7-17.5) gm/L Hct (40.1-51.0) % MCV (79.0-92.2) fl MCH (25.7-32.2) pg MCHC (32.2-35.5) g/dl RDW Std Deviation (35.1-43.9) fL Plt Count (163-337) K/mm3 MPV (9.4-12.3) fl Neut % (Auto) (34.0-67.9) % Lymph % (Auto) (21.8-53.1) % [place] % (Auto) (5.3-12.2) % Eos % (Auto) (0.8-7.0) Baso % (Auto) (0.1-1.2) % Neut # (Auto) (1.78-5.38) K/mm3 Lymph # (Auto) (1.32-3.57) K/mm3 [place] # (Auto) (0.30-0.82) K/mm3 Eos # (Auto) (0.04-0.54) K/mm3 Baso # (Auto) (0.01-0.08) K/mm3 Manual Slide Review Sodium (136-145) mEq/L Potassium (3.5-5.1) mEq/L Chloride (98-107) mEq/L Carbon Dioxide (21-32) mEq/L Anion Gap (5-15) BUN (7-18) mg/dL Creatinine (0.7-1.3) mg/dL Est Cr Clr Drug Dosing mL/min Estimated GFR (MDRD) (>60) mL/min BUN/Creatinine Ratio (14-18) Glucose (80-115) mg/dL Calcium (8.5-10.1) mg/dL Magnesium (1.8-2.4) mg/dl C-Reactive Protein (<1.0) mg/dL NT-Pro-B Natriuret Pep (0-125) pg/mL Vitamin D 25-Hydroxy 8 L (30-100) ng/mL Ur Eosinophil Smear Eos absent (Eos Absent) % EOS Ur Uric Acid Concent 27.4 mg/dL 09/05/17 09/06/17 09/06/17 Range/Units 06:30 06:00 06:00 WBC 8.00 (4.23-9.07) K/mm3 RBC 3.50 L (4.63-6.08) M/mm3 Hgb 9.9 L (13.7-17.5) gm/L Hct 31.4 L (40.1-51.0) % MCV 89.7 (79.0-92.2) fl MCH 28.3 (25.7-32.2) pg MCHC 31.5 L (32.2-35.5) g/dl RDW Std Deviation 46.0 H (35.1-43.9) fL Plt Count 598 H (163-337) K/mm3 MPV 8.8 L (9.4-12.3) fl Neut % (Auto) 66.2 (34.0-67.9) % Lymph % (Auto) 18.8 L (21.8-53.1) % [place] % (Auto) 13.1 H (5.3-12.2) % Eos % (Auto) 0.8 (0.8-7.0) Baso % (Auto) 0.1 (0.1-1.2) % Neut # (Auto) 5.30 (1.78-5.38) K/mm3 Lymph # (Auto) 1.50 (1.32-3.57) K/mm3 [place] # (Auto) 1.05 H (0.30-0.82) K/mm3 Eos # (Auto) 0.06 (0.04-0.54) K/mm3 Baso # (Auto) 0.01 (0.01-0.08) K/mm3 Manual Slide Review Abnormal smear Abnormal smear Sodium 141 (136-145) mEq/L Potassium 4.6 (3.5-5.1) mEq/L Chloride 113 H (98-107) mEq/L Carbon Dioxide 17 L (21-32) mEq/L Anion Gap 15.6 H (5-15) BUN 44 H (7-18) mg/dL Creatinine 1.8 H (0.7-1.3) mg/dL Est Cr Clr Drug Dosing 35.70 mL/min Estimated GFR (MDRD) 37 (>60) mL/min BUN/Creatinine Ratio 24.4 H (14-18) Glucose 91 (80-115) mg/dL Calcium 8.2 L (8.5-10.1) mg/dL Magnesium 2.0 (1.8-2.4) mg/dl C-Reactive Protein 24.4 H* (<1.0) mg/dL NT-Pro-B Natriuret Pep (0-125) pg/mL Vitamin D 25-Hydroxy (30-100) ng/mL Ur Eosinophil Smear (Eos Absent) % EOS Ur Uric Acid Concent mg/dL 09/06/17 Range/Units 06:00 WBC (4.23-9.07) K/mm3 RBC (4.63-6.08) M/mm3 Hgb (13.7-17.5) gm/L Hct (40.1-51.0) % MCV (79.0-92.2) fl MCH (25.7-32.2) pg MCHC (32.2-35.5) g/dl RDW Std Deviation (35.1-43.9) fL Plt Count (163-337) K/mm3 MPV (9.4-12.3) fl Neut % (Auto) (34.0-67.9) % Lymph % (Auto) (21.8-53.1) % [place] % (Auto) (5.3-12.2) % Eos % (Auto) (0.8-7.0) Baso % (Auto) (0.1-1.2) % Neut # (Auto) (1.78-5.38) K/mm3 Lymph # (Auto) (1.32-3.57) K/mm3 [place] # (Auto) (0.30-0.82) K/mm3 Eos # (Auto) (0.04-0.54) K/mm3 Baso # (Auto) (0.01-0.08) K/mm3 Manual Slide Review Sodium (136-145) mEq/L Potassium (3.5-5.1) mEq/L Chloride (98-107) mEq/L Carbon Dioxide (21-32) mEq/L Anion Gap (5-15) BUN (7-18) mg/dL Creatinine (0.7-1.3) mg/dL Est Cr Clr Drug Dosing mL/min Estimated GFR (MDRD) (>60) mL/min BUN/Creatinine Ratio (14-18) Glucose (80-115) mg/dL Calcium (8.5-10.1) mg/dL Magnesium (1.8-2.4) mg/dl C-Reactive Protein (<1.0) mg/dL NT-Pro-B Natriuret Pep 10670 H (0-125) pg/mL Vitamin D 25-Hydroxy (30-100) ng/mL Ur Eosinophil Smear (Eos Absent) % EOS Ur Uric Acid Concent mg/dL NAOMIE Results - Last 24 hrs: Microbiology 09/02/17 14:55 Aerobic Blood Culture - Preliminary Blood - Venous NO GROWTH AFTER 3 DAYS Anaerobic Blood Culture - Final 09/02/17 14:45 Aerobic Blood Culture - Preliminary Blood - Venous - Lab Draw NO GROWTH AFTER 3 DAYS Anaerobic Blood Culture - Final Med Orders - Current: Current Medications Acetaminophen (Tylenol) 650 mg PO Q4H PRN PRN Reason: Pain (Mild 1-3)/fever Hydrocodone Bitart/Acetaminophen ([place] 325-5 Mg) 1 tab PO Q4H PRN PRN Reason: Pain (moderate 4-6) Albuterol/Ipratropium (Duoneb 3.0-0.5 Mg/3 Ml) 3 ml NEB Q4H PRN PRN Reason: Shortness Of Breath/wheezing Bisacodyl (Dulcolax) 5 mg PO DAILY PRN PRN Reason: Constipation Carvedilol (Coreg) 3.125 mg PO BID [facility] Last Admin: 09/06/17 08:20 Dose: 3.125 mg Cephalexin (Keflex) 500 mg PO Q12HR [facility] Cholecalciferol (Vitamin D3) 5,000 unit PO DAILY [facility] Last Admin: 09/06/17 08:21 Dose: 5,000 unit Cyclobenzaprine HCl (Flexeril) 10 mg PO BID PRN PRN Reason: pain Docusate Sodium (Colace) 100 mg PO BID PRN PRN Reason: Constipation Ferrous Sulfate (Ferrous Sulfate) 325 mg PO DAILY [facility] Last Admin: 09/06/17 08:21 Dose: 325 mg Hydralazine HCl (Apresoline) 10 mg IVPUSH Q4H PRN PRN Reason: Hypertension Hydromorphone HCl (Dilaudid) 0.25 mg IVPUSH Q2H PRN PRN Reason: Pain (severe 7-10) Promethazine HCl 6.25 mg/ (Sodium Chloride) 50.25 mls @ 100 mls/hr IV Q6H PRN PRN Reason: Nausea/Vomiting Loperamide HCl (Imodium) 2 mg PO Q6H PRN PRN Reason: Diarrhea Last Admin: 09/05/17 00:02 Dose: 2 mg Lorazepam (Ativan) 2 mg IVPUSH Q4H PRN PRN Reason: Seizures Lorazepam (Ativan) 0.25 mg IV Q6H PRN PRN Reason: Anxiety Magnesium Sulfate (Pharmacy To Dose - Magnesium Replacement) 0 dose .XX ASDIRECTED PRN PRN Reason: RX TO WATCH MAG LEVELS Metoprolol Tartrate (Lopressor) 5 mg IVPUSH Q4H PRN PRN Reason: Tachycardia Last Admin: 09/03/17 05:11 Dose: 5 mg Midodrine (Midodrine) 5 mg PO TIDAC [facility] Last Admin: 09/06/17 06:42 Dose: 5 mg Ondansetron HCl (Zofran) 4 mg IV Q6H PRN PRN Reason: Nausea/Vomiting Polyethylene Glycol (Miralax) 17 gm PO DAILY PRN PRN Reason: Constipation Potassium Chloride (Pharmacy To Dose - Potassium Replacement) 0 dose .XX ASDIRECTED PRN PRN Reason: RX TO WATCH K LEVELS Saccharomyces Boulardii (Florastor) 250 mg PO DAILY [facility] Last Admin: 09/06/17 08:20 Dose: 250 mg Senna/Docusate Sodium (Senna Plus) 1 tab PO BID PRN PRN Reason: Constipation Temazepam (Restoril) 7.5 mg PO BEDTIME PRN PRN Reason: Sleep Discontinued Medications Carvedilol (Coreg) 3.125 mg PO ONETIME ONE Stop: 09/04/17 09:07 Last Admin: 09/04/17 09:18 Dose: 3.125 mg Clopidogrel Bisulfate (Plavix) 75 mg PO DAILY [facility] Last Admin: 09/04/17 15:15 Dose: Not Given Docusate Sodium (Colace) 100 mg PO DAILY PRN PRN Reason: Constipation Ergocalciferol (Vitamin D2) 50,000 units PO Q7D [facility] Stop: 09/25/17 09:01 Sodium Chloride (Normal Saline) 1,000 mls @ 999 mls/hr IV ONETIME ONE Stop: 09/02/17 15:24 Last Admin: 09/02/17 14:35 Dose: 999 mls/hr Magnesium Sulfate 2 gm/ Premix 50 mls @ 50 mls/hr IV ONETIME STA Stop: 09/02/17 17:05 Last Admin: 09/02/17 16:15 Dose: 50 mls/hr Sodium Chloride (Normal Saline) 1,000 mls @ 999 mls/hr IV ONETIME ONE Stop: 09/02/17 17:39 Last Admin: 09/02/17 16:55 Dose: 999 mls/hr Norepinephrine Bitartrate 4 mg (/ Dextrose/Water) 250 mls @ 37.5 mls/hr IV TITRATE [facility]; Protocol Last Titration: 09/04/17 16:19 Dose: 0 mcg/min, 0 mls/hr Levofloxacin/Dextrose 250 mg/ (Premix) 50 mls @ 50 mls/hr IV ONETIME ONE Stop: 09/02/17 18:09 Last Admin: 09/02/17 17:47 Dose: 50 mls/hr Ceftriaxone Sodium 1 gm/ (Sodium Chloride) 100 mls @ 200 mls/hr IV Q24H [facility] Last Admin: 09/03/17 08:28 Dose: 200 mls/hr Sodium Chloride (Normal Saline) 250 mls @ 999 mls/hr IV ONETIME ONE Stop: 09/03/17 01:09 Last Admin: 09/03/17 01:07 Dose: 999 mls/hr Sodium Chloride (Normal Saline) 1,000 mls @ 100 mls/hr IV ASDIRECTED [facility] Last Admin: 09/04/17 05:06 Dose: 100 mls/hr Ceftriaxone Sodium 1 gm/ (Dextrose/Water) 100 mls @ 200 mls/hr IV Q24H [facility] Ceftriaxone Sodium 1 gm/ (Dextrose/Water) 100 mls @ 200 mls/hr IV DAILY [facility] Last Admin: 09/06/17 08:15 Dose: 200 mls/hr Magnesium Sulfate 2 gm/ Premix 50 mls @ 25 mls/hr IV ONETIME ONE Stop: 09/05/17 09:59 Last Admin: 09/05/17 08:42 Dose: 25 mls/hr Loperamide HCl (Imodium) 2 mg PO ONETIME ONE Stop: 09/03/17 16:25 Last Admin: 09/03/17 16:38 Dose: 2 mg Magnesium Oxide (Magnesium Oxide) 800 mg PO ONETIME ONE Stop: 09/04/17 09:01 Last Admin: 09/04/17 08:29 Dose: 800 mg Midodrine (Midodrine) 2.5 mg PO TIDAC [facility] Last Admin: 09/04/17 11:21 Dose: 2.5 mg Midodrine (Midodrine) 2.5 mg PO ONETIME ONE Stop: 09/04/17 15:30 Last Admin: 09/04/17 16:20 Dose: 2.5 mg - Exam Quality Assessment: Reports: DVT Prophylaxis General: Reports: Alert, Oriented, Cooperative, No Acute Distress HEENT: Reports: Pupils Equal, Pupils Reactive, Mucous Membr. Moist/[place] Neck: Reports: Supple, Trachea Midline, No JVD Lungs: Reports: Clear to Auscultation, Normal Respiratory Effort, Decreased Breath Sounds Cardiovascular: Reports: Regular Rate, Irregular Rhythm (occasional PVCs ) GI/Abdominal Exam: Normal Bowel Sounds, Soft, Non-Tender, No Organomegaly, No Distention, No Abnormal Bruit, No Mass, Pelvis Stable (Male) Exam: Deferred Rectal (Males) Exam: Deferred Back Exam: Reports: Normal Inspection, Full Range of Motion Extremities: Normal Inspection, Normal Range of Motion, Non-Tender, Normal Capillary Refill, Pedal Edema (trace to 1+) Skin: Reports: Warm, Dry, Intact Neurological: Reports: No New Focal Deficit Psy/Mental Status: Reports: Alert, Normal Affect, Normal Mood
[2017-09-06] MEDS ORDERED: Cephalexin 500 MG Cap PO SCH (09:00)
[2017-09-06 11:27] VITALS: BP 96/51
== END 2017-09-06 12:32 | DRG 315 ==
LOC: JD.ED 13:46 → JD.ICU 19:48 → JD.MS 09-05 15:35
PROVIDERS: ADMIT Internal Medicine; ATTEND Internal Medicine
PROC: 039Y3ZZ Drainage of Upper Artery, Percutaneous Approach (ICD-10-PCS; principal; 2017-09-02)
PROC: 3E033XZ Introduction of Vasopressor into Peripheral Vein, Percutaneous Approach (ICD-10-PCS; 2017-09-02)
DX: I95.9 Hypotension, unspecified (principal); N17.9 Acute kidney failure, unspecified; E87.2 Acidosis; E87.3 Alkalosis; I50.22 Chronic systolic (congestive) heart failure; I13.0 Hypertensive heart and chronic kidney disease with heart failure and stage 1 through stage 4 chronic kidney disease, or unspecified chronic kidney disease; N19 Unspecified kidney failure; F17.200 Nicotine dependence, unspecified, uncomplicated; R79.1 Abnormal coagulation profile; R79.89 Other specified abnormal findings of blood chemistry; R62.7 Adult failure to thrive; I10 Essential (primary) hypertension; M19.90 Unspecified osteoarthritis, unspecified site; J44.9 Chronic obstructive pulmonary disease, unspecified; R26.81 Unsteadiness on feet; R05 Cough; R55 Syncope and collapse; R19.7 Diarrhea, unspecified; F50.89 Other specified eating disorder; R11.10 Vomiting, unspecified; R68.83 Chills (without fever); D50.9 Iron deficiency anemia, unspecified; N18.9 Chronic kidney disease, unspecified; D63.1 Anemia in chronic kidney disease; N30.90 Cystitis, unspecified without hematuria; E83.42 Hypomagnesemia; R53.1 Weakness; I08.3 Combined rheumatic disorders of mitral, aortic and tricuspid valves; B96.89 Other specified bacterial agents as the cause of diseases classified elsewhere; K21.9 Gastro-esophageal reflux disease without esophagitis; E78.5 Hyperlipidemia, unspecified; R91.8 Other nonspecific abnormal finding of lung field; F10.20 Alcohol dependence, uncomplicated; M15.9 Polyosteoarthritis, unspecified; R63.4 Abnormal weight loss; H26.9 Unspecified cataract; Z68.25 Body mass index [BMI] 25.0-25.9, adult; Z79.899 Other long term (current) drug therapy; Z85.46 Personal history of malignant neoplasm of prostate; Z86.718 Personal history of other venous thrombosis and embolism; Z86.711 Personal history of pulmonary embolism; W19.XXXA Unspecified fall, initial encounter
CPT/HCPCS: 36415; 36600; 71045; 80053; 81001; 82570; 82803; 83605; 83735; 83880; 83935; 84484; 85007; 85027; 85379; 85610; 85730; 87040 ×2; 87086; 87088; 87186; 87804 ×2; 93005; 96361; 96365; 96366; 96367; 96368; 99285; J1956; J7040 ×2; J7060; 76770; 76770-26; 80048; 82272; 82306; 83930; 84295; 84439; 84443; 84560; 85014; 85018; 85025; 86140; 87493; 89190; 93306; 97110-GO; 97116-GP; 97162-GP; 97165-GO; 97530-GO; A9270-GY; J0696; J3475; J3490; J7030

== ENCOUNTER 2017-09-24 08:57 | Day surgery (SDC) | payer MEDICARE, OTHER ==
[~2017-09-24 08:57] MED LIST: Albuterol 0.083% 2.5 MG/3 ML Neb Soln NEB PRN; Lactated Ringers 1,000 ML IV SCH; Lidocaine 1%/Sod Bicarbonate in NS 8.4% 1 ML Syringe IDERM PRN; Sodium Chloride 0.9% 10 ML Syringe FLUSH PRN
[2017-09-24] MEDS ORDERED: Lidocaine 1% 4 ML ONE (09:37)
[2017-09-24] MEDS ORDERED: Propofol 200 MG/20 ML SDV ONE (09:37)
[2017-09-24] MEDS ORDERED: fentaNYL 100 MCG/2 ML SDV ONE (09:37)
--- NOTE | 2017-09-24 10:28 | PCM.PREANE ---
Preanesthetic Assessment - Procedure Proposed Procedure: diag egd and colonoscopy - Anesthesia/Transfusion/Family Hx Anesthesia History: Prior Anesthesia Without Reaction Family History of Anesthesia Reaction: No Transfusion History: No Prior Transfusion(s) - Review of Systems General: Weakness (lilia hgb), Fatigue Pulmonary: No Symptoms Cardiovascular: No Symptoms Gastrointestinal: No Symptoms, Diarrhea (often) Neurological: No Symptoms, Weakness Other: Reports: None - Physical Assessment NPO Status Date: 09/23/17 NPO Status Time: 23:00 O2 Sat by Pulse Oximetry: 97 Respiratory Rate: 20 Vital Signs: Last Vital Signs Temp 98.1 F 09/24/17 09:15 Pulse 78 09/24/17 09:15 Resp 20 09/24/17 09:15 BP 117/88 09/24/17 09:15 Pulse Ox 97 09/24/17 09:15 Height: 5 ft 7 in Weight: 68.039 kg ASA Class: 3 Mental Status: Alert & Oriented x3 Airway Class: Mallampati = 2 Dentition: Reports: Dentures (top), Broken Tooth/Teeth (bottom) Thyro-Mental Finger Breadths: 3 Mouth Opening Finger Breadths: 3 ROM/Head Extension: Limited/Partial Lungs: Clear to Auscultation, Normal Respiratory Effort Cardiovascular: Irregular Rhythm - Allergies Allergies/Adverse Reactions: Allergies Allergy/AdvReac Type Severity Reaction Status Date / Time No Known Allergies Allergy Verified 09/24/17 09:56 - Blood Blood Available: No - Anesthesia Plan Beta Raymond: Carvedilol Med Last Dose Date: 09/24/17 Med Last Dose Time: 05:30 - Acknowledgements Anesthesia Type Planned: MAC Pt an Appropriate Candidate for the Planned Anesthesia: Yes Alternatives and Risks of Anesthesia Discussed w Pt/Guardian: Yes Pt/Guardian Understands and Agrees with Anesthesia Plan: Yes PreAnesthesia Questionnaire HEENT History: Reports: Cataract Cardiovascular History: Reports: Blood Clots/VTE/DVT, Heart Failure (ef 30-35 %) , Hypertension, Other (See Below) Other Cardiovascular History: iliac artery stenosis Respiratory History: Reports: COPD Other Respiratory History: emphysema Gastrointestinal History: Reports: GERD Genitourinary History: Reports: None 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 Musculoskeletal History: Reports: Arthritis, Osteoarthritis Neurological History: Reports: None Psychiatric History: Reports: None Endocrine/Metabolic History: Reports: None Hematologic History: Reports: Anemia, Iron Deficiency Immunologic History: Reports: None Oncologic (Cancer) History: Reports: None, Prostate Dermatologic History: Reports: None - Past Surgical History Head Surgeries/Procedures: Reports: None HEENT Surgical History: Reports: Adenoidectomy, Cataract Surgery, Eye Surgery, Tonsillectomy Cardiovascular Surgical History: Reports: None Respiratory Surgical History: Reports: None GI Surgical History: Reports: Appendectomy, Colonoscopy, EGD, Hernia Repair/ Other Female Surgical History: Reports: None Male Surgical History: Reports: None Endocrine Surgical History: Reports: None Neurological Surgical History: Reports: None Musculoskeletal Surgical History: Reports: None Oncologic Surgical History: Reports: None Dermatological Surgical History: Reports: None - History Comment History Comment: dr stopped lasix and lisinopril because of low bp- last week - SUBSTANCE USE Smoking Status *Q: Former Smoker (just quit 20 days ago - 50 + years) Tobacco Use Within Last Twelve Months: Cigarettes Second Hand Smoke Exposure: No Days Per Week of Alcohol Use: 0 Recreational Drug Use History: No - HOME MEDS Home Medications: Home Meds Carvedilol 3.125 mg PO BID 09/03/17 [History] Clopidogrel [Plavix] 75 mg PO DAILY 09/03/17 [History] Cyclobenzaprine [Flexeril] 10 mg PO BID PRN 09/03/17 [History] Docusate Sodium [Colace] 100 mg PO DAILY PRN 09/03/17 [History] Ferrous Sulfate [Iron] 325 mg PO DAILY 09/03/17 [History] Lisinopril 20 mg PO QAM 09/03/17 [History] Menthol/Methyl Salicylate [Icy Hot] 1 dose TOP DAILY PRN 09/03/17 [History] Urea [Urea 20% Crm] 1 dose TOP DAILY PRN 09/03/17 [History] Cholecalciferol (Vitamin D3) [Vitamin D3] 5,000 unit PO DAILY #15 tablet [Rx] Furosemide [Lasix] 10 mg PO ASDIRECTED #20 tab 09/06/17 [Rx] Midodrine 5 mg PO TIDAC #40 tablet 09/06/17 [Rx] Saccharomyces Boulardii [Florastor] 250 mg PO DAILY #30 cap 09/06/17 [Rx] Nicotine [Nicoderm CQ] 7 mg TOP DAILY 09/21/17 [History] Potassium Chloride 10 meq PO MOWEFR 09/21/17 [History] - CURRENT (IN HOUSE) MEDS Current Meds: Current Medications Albuterol (Proventil Neb Soln) 2.5 mg NEB ONETIME PRN PRN Reason: Cough Lactated Ringer's (Ringers, Lactated) 1,000 mls @ 125 mls/hr IV ASDIRECTED YAZAN Last Admin: 09/24/17 09:30 Dose: 125 mls/hr Lidocaine/Sodium Bicarbonate (Buffered Lidocaine 1% In Ns 8.4%) 0.25 ml IDERM ONETIME PRN PRN Reason: Prior to IV Start Last Admin: 09/24/17 09:29 Dose: 0.25 ml Sodium Chloride (Saline Flush) 10 ml FLUSH ASDIRECTED PRN PRN Reason: Keep Vein Open Discontinued Medications Fentanyl (Sublimaze) Confirm Administered Dose 100 mcg .ROUTE .STK-MED ONE Stop: 09/24/17 09:38 Lidocaine HCl (Xylocaine-Mpf 1%) Confirm Administered Dose 4 mls @ as directed .ROUTE .STK-MED ONE Stop: 09/24/17 09:38 Propofol (Diprivan 20 Ml) Confirm Administered Dose 200 mg .ROUTE .STK-MED ONE Stop: 09/24/17 09:38
[2017-09-24] MEDS ORDERED: Ketamine 500 mg/10 ML MDV ONE (11:06)
--- NOTE | 2017-09-24 11:48 | PCM.OPNOTE ---
- General Post-Op/Procedure Note Date of Surgery/Procedure: 09/24/17 Operative Procedure(s): egd with bx/colonoscopy Pre Op Diagnosis: anemia Post-Op Diagnosis: Same Anesthesia Technique: MAC Primary Surgeon: Jacky Hernandez Complications: None Condition: Good
--- NOTE | 2017-09-24 11:50 | PCM48HPAN ---
Post Anesthesia Note - EVALUATION WITHIN 48HRS OF ANESTHETIC Vital Signs in Normal Range: Yes Patient Participated in Evaluation: Yes Respiratory Function Stable: Yes Airway Patent: Yes Cardiovascular Function Stable: Yes Hydration Status Stable: Yes Pain Control Satisfactory: Yes Nausea and Vomiting Control Satisfactory: Yes Mental Status Recovered: Yes Pulse Rate: 87 SaO2: 92 Resp Rate: 20 Temperature: 98.3 F
[2017-09-24 14:45] VITALS: BP 116/67
--- NOTE | 2017-09-24 15:16 | OR ---
DATE OF OPERATION: 09/24/2017 SURGEON: Jacky Hernandez MD PREOPERATIVE DIAGNOSIS: Anemia. POSTOPERATIVE DIAGNOSIS: Anemia. OPERATION PERFORMED: Esophagogastroduodenoscopy with biopsy done under IV sedation. FINDINGS: Second portion of the duodenum unremarkable. The duodenal diverticulum just off the duodenal bulb. The bulb shows some hypertrophic tissue, which was biopsied. Pyloric channel was unremarkable. Antrum, body, and cardia of the stomach did not show any pathology. J-maneuver showed a sliding some hiatal hernia and erosions at the GE junction, which were biopsied, located at 40 cm. Rest of the esophagus was unremarkable. ANESTHESIA: Procedure done under IV sedation. DESCRIPTION OF PROCEDURE: The patient was taken to the endoscopy room, connected to monitoring equipment, given IV sedation. Bite-block was placed in left lateral position. Bite-block was inserted and video Olympus gastroscope was placed in a posterior oropharynx, under direct vision threaded past the cricopharyngeus, down the esophagus into the stomach. Stomach was insufflated, and the scope passed through the pylorus to the second portion of the duodenum, slowly withdrawn showing the above findings. Antrum, body, and cardia of stomach unremarkable. J-maneuver was performed. Scope withdrawn to the GE junction, before that there was some hypertrophic tissue in the duodenal bulb and this was biopsied. The scope was then withdrawn to the GE junction, which was located at 40 cm, showed erosions that included approximately 1/3 of the esophagus and this was biopsied. The scope was slowly withdrawn showing the rest of the esophagus unremarkable. The patient tolerated the procedure. Specimen sent to pathology in a labeled container and IV sedation continued for colonoscopy. ESTIMATED BLOOD LOSS: MMODAL /[id number]
--- NOTE | 2017-09-25 08:30 | OR ---
DATE OF OPERATION: 09/24/2017 SURGEON: Jacky Hernandez MD PREOPERATIVE DIAGNOSIS: Anemia. POSTOPERATIVE DIAGNOSIS: Anemia. OPERATION PERFORMED: Colonoscopy to cecum. FINDINGS: Diverticulosis throughout the colon and internal hemorrhoids. There were no angiodysplasias, neoplasias, large tumor masses, or ulcerations. ANESTHESIA: Procedure done under IV sedation. DESCRIPTION OF PROCEDURE: The patient having been brought to the endoscopy room for upper GI endoscopy and connected to monitoring equipment, given IV sedation. The IV sedation was continued for colonoscopy. He was placed in the left lateral position. Perianal area was unremarkable. Rectal exam showed good sphincter tone. A video Olympus colonoscope was then introduced into the rectum and threaded up without problem to the cecum, where the appendicular orifice was noted. Prep was excellent. [place] Cleansing Score grade A and the scope was slowly withdrawn showing the cecum, ascending colon, transverse colon, descending colon, sigmoid colon, and rectum. Retroflexed view was done. Findings were that of diverticulosis throughout the colon and internal hemorrhoids. The patient tolerated the procedure, sent to recovery room in a stable condition, will be followed up with Dr. Small. ESTIMATED BLOOD LOSS: MMODAL /[id number]
== END 2017-09-24 13:40 | disposition home or self-care (01) ==
LOC: JD.SDS 08:57
PROVIDERS: ATTEND Surgery
DX: D50.9 Iron deficiency anemia, unspecified (principal); D13.2 Benign neoplasm of duodenum; K29.70 Gastritis, unspecified, without bleeding; K44.9 Diaphragmatic hernia without obstruction or gangrene; K31.89 Other diseases of stomach and duodenum; K57.30 Diverticulosis of large intestine without perforation or abscess without bleeding; K64.8 Other hemorrhoids; K21.9 Gastro-esophageal reflux disease without esophagitis; I10 Essential (primary) hypertension; J43.9 Emphysema, unspecified; Z79.02 Long term (current) use of antithrombotics/antiplatelets; Z79.899 Other long term (current) drug therapy; Z87.891 Personal history of nicotine dependence
CPT/HCPCS: 43239; 45378; J2001; J3010; J7120; J2704

== ENCOUNTER 2019-01-08 15:10 | Emergency (ER) | payer MEDICARE, OTHER ==
[2019-01-08 15:16] VITALS: PULSE 108
[2019-01-08] MEDS ORDERED: Sodium Chloride 0.9% 10 ML Syringe FLUSH PRN (16:06)
[2019-01-08] MEDS ORDERED: Lactated Ringers 1,000 ML IV ONE ×2 (16:09→17:55)
--- NOTE | 2019-01-08 16:29 | EDM.PDOC ---
ED HPI GENERAL MEDICAL PROBLEM - General Chief Complaint: Neurological Problem Stated Complaint: [facility] Time Seen by Provider: 01/08/19 15:30 Source of Information: Reports: Patient, EMS, RN Notes Reviewed - History of Present Illness INITIAL COMMENTS - FREE TEXT/NARRATIVE: 73-year-old male comes in with generalized weakness, Inablity to get up off of the toilet. Pt states he is weak, dizzy. Unable to stand or walk. Patient is not able to give me any more detailed meaningful information of when he got sick. Will need to wait for a family member to come who can give more information. He does deny chest pain or difficulty breathing. He does have chronic cough. He does smoke but not as much as he used to. He states he does drink occasional alcohol, one or 2 beers a day and also occasional whiskey. - Related Data Allergies Allergy/AdvReac Type Severity Reaction Status Date / Time No Known Allergies Allergy Verified 01/08/19 15:19 Home Meds: Home Meds Carvedilol 6.25 mg PO BID 09/03/17 [History] Docusate Sodium [Colace] 100 mg PO DAILY PRN 09/03/17 [History] Ferrous Sulfate [Iron] 325 mg PO DAILY 09/03/17 [History] Menthol/Methyl Salicylate [Icy Hot] 1 dose TOP DAILY PRN 09/03/17 [History] Budesonide/Formoterol [Symbicort 160-4.5 MCG] 1 inh INH BID 01/08/19 [History] Cholecalciferol (Vitamin D3) [Vitamin D3] 2,000 unit PO DAILY 01/08/19 [History] Furosemide [Lasix] 10 mg PO MOWEFR 01/08/19 [History] Lactobacillus Acidophilus/Fos [Acidophilus Probiotic Tablet] 1 tab PO DAILY [History] Losartan [Cozaar] 50 mg PO DAILY 01/08/19 [History] Multivitamin [Multi-Day Vitamins] 1 tab PO DAILY 01/08/19 [History] Sertraline [Zoloft] 100 mg PO DAILY 01/08/19 [History] Tiotropium [Spiriva HandiHaler] 1 inh INH QAM 01/08/19 [History] Past Medical History HEENT History: Reports: Cataract Cardiovascular History: Reports: Blood Clots/VTE/DVT, Heart Failure, Hypertension, Other (See Below) Other Cardiovascular History: iliac artery stenosis Respiratory History: Reports: COPD Other Respiratory History: emphysema Gastrointestinal History: Reports: GERD Genitourinary History: Reports: None 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 Musculoskeletal History: Reports: Arthritis, Osteoarthritis Neurological History: Reports: None Psychiatric History: Reports: None Endocrine/Metabolic History: Reports: None Hematologic History: Reports: Anemia, Iron Deficiency Immunologic History: Reports: None Oncologic (Cancer) History: Reports: None, Prostate Dermatologic History: Reports: None - Past Surgical History Head Surgeries/Procedures: Reports: None HEENT Surgical History: Reports: Adenoidectomy, Cataract Surgery, Eye Surgery, Tonsillectomy Cardiovascular Surgical History: Reports: None Respiratory Surgical History: Reports: None GI Surgical History: Reports: Appendectomy, Colonoscopy, EGD, Hernia Repair/ Other Male Surgical History: Reports: None Endocrine Surgical History: Reports: None Neurological Surgical History: Reports: None Musculoskeletal Surgical History: Reports: None Oncologic Surgical History: Reports: None Dermatological Surgical History: Reports: None - History Comment History Comment: dr stopped lasix and lisinopril because of low bp- last week Social & Family History - Tobacco Use Smoking Status *Q: Former Smoker Used Tobacco, but Quit: Yes Month/Year Tobacco Last Used: - Caffeine Use Caffeine Use: Reports: Coffee - Alcohol Use Days Per Week of Alcohol Use: 7 Number of Drinks Per Day: 3 Total Drinks Per Week: 21 - Recreational Drug Use Recreational Drug Use: No - Living Situation & Occupation Living situation: Reports: , Alone Occupation: Retired ED ROS GENERAL - Review of Systems Review Of Systems: See Below HEENT: Reports: Other. Denies: Throat Pain (Mouth feels very dry) Respiratory: Denies: Shortness of Breath Cardiovascular: Denies: Chest Pain GI/Abdominal: Reports: Decreased Appetite, Nausea. Denies: Abdominal Pain, Diarrhea, Vomiting : Denies: Dysuria, Hematuria Musculoskeletal: Reports: Other (Generalized achiness) Skin: Denies: Rash Neurological: Reports: Dizziness, Difficulty Walking (Generalized), Weakness. Denies: Trouble Speaking ED EXAM, NEURO - Physical Exam Exam: See Below General Appearance: Alert, Mild Distress Eye Exam: Bilateral Eye: PERRL Throat/Mouth: Other (Oral mucosa extremely dry) Head Exam: Atraumatic, Other (No visible injury to the head or face). No: Facial Swelling, Facial Tenderness Neck: Supple, Non-Tender Respiratory/Chest: No Respiratory Distress, Lungs Clear, Normal Breath Sounds Cardiovascular: Tachycardia GI/Abdominal: Soft, Non-Tender Neurological: Alert, No Motor/Sensory Deficits, Other (Patient is mildly confused, not able to give a precise detailed history of when he became ill or what all has been going on but does answer simple questions and does know where he is at) Extremities: Normal Inspection. No: Leg Pain Skin Exam: Warm, Dry, Normal Color, No Rash EKG INTERPRETATION EKG Date: 01/08/19 Rhythm: NSR (No ectopy) [place]: Normal P-Wave: Present QRS: Other (QRS very mildly widened) ST-T: Other (No significant ST elevation or depression) Course - Vital Signs Last Recorded V/S: Last Vital Signs Temp 97.6 F 01/08/19 15:15 Pulse 108 H 01/08/19 15:15 Resp 18 01/08/19 15:15 BP Pulse Ox 93 L 01/08/19 15:15 - Orders/Labs/Meds Orders: Active Orders 24 hr Category Date Time Status EKG 12 Lead [EKG Documentation Completion] [RC] STAT Care 01/08/19 16:06 Active EKG 12 Lead [EKG Documentation Completion] [RC] STAT Care 01/08/19 18:41 Active Oxygen Therapy [RC] ASDIRECTED Care 01/08/19 16:06 Active Peripheral IV Care [RC] . DIRECTED Care 01/08/19 16:07 Active Chest 1V Frontal [CR] Stat Exams 01/08/19 16:05 Taken Sodium Chloride 0.9% [Saline Flush] Med 01/08/19 16:06 Active 10 ml FLUSH ASDIRECTED PRN Peripheral IV Insertion Adult [OM.PC] Stat Oth 01/08/19 16:06 Ordered Medication Orders Sodium Chloride (Saline Flush) 10 ml FLUSH ASDIRECTED PRN PRN Reason: Keep Vein Open Last Admin: 01/08/19 16:22 Dose: 10 ml Labs: Laboratory Tests 01/08/19 01/08/19 01/08/19 Range/Units 17:09 17:09 17:09 WBC 31.97 H (4.23-9.07) K/mm3 RBC 2.74 L (4.63-6.08) M/mm3 Hgb 7.7 L D (13.7-17.5) gm/dl Hct 24.1 L (40.1-51.0) % MCV 88.0 (79.0-92.2) fl MCH 28.1 (25.7-32.2) pg MCHC 32.0 L (32.2-35.5) g/dl RDW Std Deviation 47.3 H (35.1-43.9) fL Plt Count 723 H D (163-337) K/mm3 MPV 9.2 L (9.4-12.3) fl Neutrophils % (Manual) 89 H (40-60) % Band Neutrophils % 4 (0-10) % Lymphocytes % (Manual) 4 L (20-40) % Atypical Lymphs % 0 % Monocytes % (Manual) 3 (2-10) % Eosinophils % (Manual) 0 L (0.8-7.0) % Basophils % (Manual) 0 L (0.2-1.2) Toxic Granulation Moderate Dohle Bodies Few Platelet Estimate Increased Plt Morphology Comment See note Poikilocytosis 1+ slight Anisocytosis 1+ slight Ovalocytes 1+ slight Ki Cells 1+ slight Sodium 134 L (136-145) mEq/L Potassium 7.3 H* D (3.5-5.1) mEq/L Chloride 100 D (98-107) mEq/L Carbon Dioxide 20 L (21-32) mEq/L Anion Gap 21.3 H (5-15) BUN 166 H D (7-18) mg/dL Creatinine 9.8 H D (0.7-1.3) mg/dL Est Cr Clr Drug Dosing 7.59 mL/min Estimated GFR (MDRD) 5 (>60) mL/min BUN/Creatinine Ratio 16.9 (14-18) Glucose 136 H (83-115) mg/dL Calcium 10.5 H D (8.5-10.1) mg/dL Magnesium (1.8-2.4) mg/dl Total Bilirubin 2.2 H (0.2-1.0) mg/dL AST 357 H (15-37) U/L ALT 180 H (16-63) U/L Alkaline Phosphatase 95 (46-116) U/L Ammonia (11-32) umol/L Troponin I 0.032 (0.00-0.056) ng/mL C-Reactive Protein 21.4 H* (<1.0) mg/dL Total Protein 6.5 (6.4-8.2) g/dl Albumin 2.1 L (3.4-5.0) g/dl Globulin 4.4 gm/dL Albumin/Globulin Ratio 0.5 L (1-2) Ethyl Alcohol (0.00) gm% 01/08/19 01/08/19 01/08/19 Range/Units 17:09 18:00 18:00 WBC (4.23-9.07) K/mm3 RBC (4.63-6.08) M/mm3 Hgb (13.7-17.5) gm/dl Hct (40.1-51.0) % MCV (79.0-92.2) fl MCH (25.7-32.2) pg MCHC (32.2-35.5) g/dl RDW Std Deviation (35.1-43.9) fL Plt Count (163-337) K/mm3 MPV (9.4-12.3) fl Neutrophils % (Manual) (40-60) % Band Neutrophils % (0-10) % Lymphocytes % (Manual) (20-40) % Atypical Lymphs % % Monocytes % (Manual) (2-10) % Eosinophils % (Manual) (0.8-7.0) % Basophils % (Manual) (0.2-1.2) Toxic Granulation Dohle Bodies Platelet Estimate Plt Morphology Comment Poikilocytosis Anisocytosis Ovalocytes Edwards Cells Sodium (136-145) mEq/L Potassium 7.1 H* (3.5-5.1) mEq/L Chloride (98-107) mEq/L Carbon Dioxide (21-32) mEq/L Anion Gap (5-15) BUN (7-18) mg/dL Creatinine (0.7-1.3) mg/dL Est Cr Clr Drug Dosing mL/min Estimated GFR (MDRD) (>60) mL/min BUN/Creatinine Ratio (14-18) Glucose (83-115) mg/dL Calcium (8.5-10.1) mg/dL Magnesium 2.0 (1.8-2.4) mg/dl Total Bilirubin (0.2-1.0) mg/dL AST (15-37) U/L ALT (16-63) U/L Alkaline Phosphatase (46-116) U/L Ammonia 12 (11-32) umol/L Troponin I (0.00-0.056) ng/mL C-Reactive Protein (<1.0) mg/dL Total Protein (6.4-8.2) g/dl Albumin (3.4-5.0) g/dl Globulin gm/dL Albumin/Globulin Ratio (1-2) Ethyl Alcohol (0.00) gm% 01/08/19 Range/Units 18:00 WBC (4.23-9.07) K/mm3 RBC (4.63-6.08) M/mm3 Hgb (13.7-17.5) gm/dl Hct (40.1-51.0) % MCV (79.0-92.2) fl MCH (25.7-32.2) pg MCHC (32.2-35.5) g/dl RDW Std Deviation (35.1-43.9) fL Plt Count (163-337) K/mm3 MPV (9.4-12.3) fl Neutrophils % (Manual) (40-60) % Band Neutrophils % (0-10) % Lymphocytes % (Manual) (20-40) % Atypical Lymphs % % Monocytes % (Manual) (2-10) % Eosinophils % (Manual) (0.8-7.0) % Basophils % (Manual) (0.2-1.2) Toxic Granulation Dohle Bodies Platelet Estimate Plt Morphology Comment Poikilocytosis Anisocytosis Ovalocytes Ki Cells Sodium (136-145) mEq/L Potassium (3.5-5.1) mEq/L Chloride (98-107) mEq/L Carbon Dioxide (21-32) mEq/L Anion Gap (5-15) BUN (7-18) mg/dL Creatinine (0.7-1.3) mg/dL Est Cr Clr Drug Dosing mL/min Estimated GFR (MDRD) (>60) mL/min BUN/Creatinine Ratio (14-18) Glucose (83-115) mg/dL Calcium (8.5-10.1) mg/dL Magnesium (1.8-2.4) mg/dl Total Bilirubin (0.2-1.0) mg/dL AST (15-37) U/L ALT (16-63) U/L Alkaline Phosphatase (46-116) U/L Ammonia (11-32) umol/L Troponin I (0.00-0.056) ng/mL C-Reactive Protein (<1.0) mg/dL Total Protein (6.4-8.2) g/dl Albumin (3.4-5.0) g/dl Globulin gm/dL Albumin/Globulin Ratio (1-2) Ethyl Alcohol 0.00 (0.00) gm% Meds: Medications Generic Name Dose Route Start Last Admin Trade Name Freq PRN Reason Stop Dose Admin Sodium Chloride 10 ml 01/08/19 16:06 01/08/19 16:22 Saline Flush FLUSH 10 ml ASDIRECTED PRN Administration Keep Vein Open Discontinued Medications Generic Name Dose Route Start Last Admin Trade Name Freq PRN Reason Stop Dose Admin Calcium Gluconate 1 gm 01/08/19 17:57 01/08/19 18:28 Calcium Gluconate IV 01/08/19 17:58 1 gm ONETIME ONE Administration Lactated Ringer's 1,000 mls @ 999 mls/hr 01/08/19 16:09 01/08/19 16:21 Ringers, Lactated IV 01/08/19 17:09 999 mls/hr .BOLUS ONE Administration Lactated Ringer's 1,000 mls @ 999 mls/hr 01/08/19 17:55 01/08/19 18:02 Ringers, Lactated IV 01/08/19 18:55 999 mls/hr .BOLUS ONE Administration Sodium Bicarbonate 50 meq 01/08/19 17:57 01/08/19 18:24 Sodium Bicarbonate 8.4% IVPUSH 01/08/19 17:58 50 meq ONETIME ONE Administration Sodium Bicarbonate Confirm 01/08/19 18:20 01/08/19 18:25 Sodium Bicarbonate 8.4% Administered 01/08/19 18:21 Not Given Dose 50 meq .ROUTE .[facility] - Re-Assessments/Exams Free Text/Narrative Re-Assessment/Exam: 01/08/19 18:12. Creatinine came back at 9.8, potassium 7.3, BUN 166, anion gap very elevated, CO2 was low. EKG did not show peaked T waves with very old widening of the QRS. He is been in sinus rhythm 108 on arrival now running in the 90s. He has had his first liter of lactated Ringer's and second liter has been ordered. Also 1 g calcium gluconate, 1 amp sodium bicarbonate. He will need emergency dialysis. Therefore arrangements will be made for transfer. 18:45 have made arrangements to transfer to [facility]. Have discussed this with Dr. Flores ED, accepting physician. He will be transferred by ground ambulance. I did get a repeat EKG just a few minutes ago which does show sinus rhythm, rate 88, configuration basically unchanged from prior EKG. Chest x-ray shows normal heart size very mildly increased from chest x-ray of last August about 5 months ago. He does have slightly increased lung markings which look more like fibrosis than anything else. I do not see acute infiltrate. I do not see evidence for CHF at this time. WBC very elevated at about 31,000. He was and remains afebrile. UA has been ordered but so far he has not been able to void. He is now had close to 2 L of LR, will continue running that at 1000 male per hour during the transfer. It is anticipated he will have had about 3 L LR by the time he arrives at [place]. Departure - Departure Time of Disposition: 18:30 Disposition: DC/Tfer to [facility] Condition: Critical Clinical Impression: Hyperkalemia, Severe dehydration Renal failure Qualifiers: Renal failure chronicity: acute Acute renal failure type: unspecified Qualified Code(s): N17.9 - Acute kidney failure, unspecified - Discharge Information Referrals: PCP,Unknown [Ordering Only Provider] - Forms: ED Department Discharge - My Orders Last 24 Hours: My Active Orders 01/08/19 16:05 Chest 1V Frontal [CR] Stat 01/08/19 16:06 EKG 12 Lead [EKG Documentation Completion] [RC] STAT Oxygen Therapy [RC] ASDIRECTED Sodium Chloride 0.9% [Saline Flush] 10 ml FLUSH ASDIRECTED PRN Peripheral IV Insertion Adult [OM.PC] Stat 01/08/19 16:07 Peripheral IV Care [RC] . DIRECTED 01/08/19 18:41 EKG 12 Lead [EKG Documentation Completion] [RC] STAT - Assessment/Plan Last 24 Hours: My Active Orders 01/08/19 16:05 Chest 1V Frontal [CR] Stat 01/08/19 16:06 EKG 12 Lead [EKG Documentation Completion] [RC] STAT Oxygen Therapy [RC] ASDIRECTED Sodium Chloride 0.9% [Saline Flush] 10 ml FLUSH ASDIRECTED PRN Peripheral IV Insertion Adult [OM.PC] Stat 01/08/19 16:07 Peripheral IV Care [RC] . DIRECTED 01/08/19 18:41 EKG 12 Lead [EKG Documentation Completion] [RC] STAT
[2019-01-08] MEDS ORDERED: Calcium Gluconate 10% 1 GM/10 ML SDV IV ONE (17:57)
[2019-01-08] MEDS ORDERED: Sodium Bicarbonate 8.4% 50 MEQ/50 ML Syringe IVPUSH ONE (17:57)
[2019-01-08] MEDS ORDERED: Sodium Bicarbonate 8.4% 50 MEQ/50 ML SDV ONE (18:20)
--- NOTE | 2019-01-09 07:03 | CR ---
Chest: Portable view of the chest was obtained. Comparison: Prior chest x-ray of 09/02/17. Heart size and mediastinum are within normal limits for portable technique. Lungs are clear with no acute parenchymal change. Severe degenerative change is noted within both shoulders. Impression: 1. Nothing acute is appreciated on portable chest x-ray. Findings which are felt to be incidental as noted above. Diagnostic code #2
== END 2019-01-08 19:05 ==
LOC: JD.ED 15:10
DX: N17.9 Acute kidney failure, unspecified (principal); E87.5 Hyperkalemia; E86.0 Dehydration; I11.0 Hypertensive heart disease with heart failure; I50.9 Heart failure, unspecified; D64.9 Anemia, unspecified; Z79.899 Other long term (current) drug therapy; Z98.49 Cataract extraction status, unspecified eye; Z98.890 Other specified postprocedural states; Z90.49 Acquired absence of other specified parts of digestive tract; Z87.891 Personal history of nicotine dependence
CPT/HCPCS: 36415; 71045; 80053; 82140; 83735; 84132; 84484; 85007; 85027; 86140; 93005; 96360; 96361; 96374; 96375; 99285; G0480; J0610; J7120